=== PATIENT | female | born 1950 | race Caucasian/White ===

== ENCOUNTER 2018-09-29 10:52 | Inpatient (IN) ==
[2018-09-29] MEDS ORDERED: Piperacillin/Tazobactam 3.375 GM in D5% in Water (Mini-Bag+) 100 ML IVPB ONE (11:45)
[2018-09-29] MEDS ORDERED: Azithromycin 500 MG in D5% in Water 250 ML IVPB STA (11:45)
[2018-09-29 11:49] LABS: Bilirubin,Urine Small (Negative); Blood,Urine Negative (Negative); Clarity,Urine Clear (Clear); Color,Urine Yellow (Yellow); Glucose,Urine (UA) Normal (Normal); Ketones,Urine 15 mg/dL (Negative); Leukocyte Esterase,Urine Negative (Negative); Nitrite,Urine Negative (Negative); Protein,Urine 30 mg/dL (Neg-Trace); Specific Gravity,Urine 1.014 (1.010-1.025); Urobilinogen,Urine Normal (Normal)
[2018-09-29 11:50] LABS: Bacteria,Urine None Seen per hpf (None-Few); Hyaline Casts,Urine Moderate per lpf (None-Few); Squamous Epithelial Cell,Urine Many per lpf (None-Few); WBC,Urine 0-3 per hpf (0-3)
[2018-09-29] MEDS ORDERED: Piperacillin/Tazobactam 3.375 GM in Water for inj. (sterile) 20 ML IVP ONE (12:00)
[2018-09-29 12:03] LABS: Transitional Epi Cells,Urine Few per hpf (None-Few)
--- NOTE | 2018-09-29 12:09 | Emergency Department Note ---
Disposition Clinical Impression: Hyponatremia Altered mental status Qualifiers: Altered mental status type: unspecified Qualified Code(s): R41.82 - Altered mental status, unspecified Disposition: Admitted As Inpatient Condition: Fair Time of Disposition: 16:03 General Adult HPI - General Stated complaint: weakness Time Seen by Provider: 09/29/18 10:56 Source: patient, family Limitations: no limitations Nursing Notes Reviewed: Yes Vital Signs Reviewed: Yes - History of Present Illness HPI Narrative: Ms. Marcelino is a 68-year-old female presented to the ED due to her issues with her bili. Her reports that for the past 1 month she has been compla ining of bilateral lower extremity numbness and tingling. He reports that since June she has more difficulty getting up from bed and often uses a bedpan at night time for urination. Ms. Marcelino is awake and alert 3. He does report that for the past 1 month she has been having difficulty walking. She is only complaining of pain around her right abductor muscle. Denies any recent falls or loss of consciousness. When EMS presented her oxygen saturation was 85% on room air. She was started on 2 L of nasal cannula and oxygen saturation is now 97%. She is also complaining of difficulty getting the "full air in." She denies any fever or chills. She is also denying any cough or chest congestion. She reports daily intake of 4 cans of 24 ounce beer for the past 10 years. She reports her last drink was this morning and had one can of beer. She is denying any fever, chills, chest pain, nausea or emesis. Pain Scale: 3 - Related Data Home Medications Medication Instructions Recorded Confirmed Aspirin [Lo-Dose Aspirin EC] 81 mg PO DAILY 06/28/18 09/29/18 Atenolol [Tenormin] 50 mg PO DAILY 06/28/18 09/29/18 Cholecalciferol (Vitamin D3) 2,000 unit PO DAILY 06/28/18 09/29/18 [Vitamin D] Loratadine [Allergy Relief] 10 mg PO DAILY PRN 06/28/18 09/29/18 Losartan Potassium [Cozaar] 50 mg PO DAILY 06/28/18 09/29/18 Mv-Mn/FA/Vit K/Lycop/Lut/Coq10 1 each PO DAILY 06/28/18 09/29/18 [Daily Multivitamin Capsule] Prednisolone Acetate/Pf 1 drop RIGHT EYE TID 09/29/18 09/29/18 [Prednisolone Acet 1% Eye Drop] Sodium Bicarbonate 325 mg PO BID 09/29/18 09/29/18 Allergies Allergy/AdvReac Type Severity Reaction Status Date / Time No Known Allergies Allergy Verified 06/28/18 11:40 Constitutional: Denies: fever, chills, weakness Eyes: Denies: eye pain, eye discharge ENT ED: Denies: ear pain, congestion, dysphagia Cardiovascular: Reports: dyspnea on exertion. Denies: chest pain, palpitations, syncope Respiratory: Reports: dyspnea. Denies: cough, wheezes Gastrointestinal: Denies: abdominal pain, nausea, vomiting Genitourinary: Denies: urgency, dysuria, frequency Musculoskeletal: Reports: back pain (Chronic unchanged) Integumentary: Denies: rash, abrasion Neurological: Reports: other (Bilateral lower leg numbness). Denies: headache, weakness Past Medical History - Past Medical History Medical history: Reports: hypertension, other Psychiatric history: Reports: no psych history - Social History Smoking Status: Former smoker Smokeless Tobacco Status: No Alcohol use: Reports: heavy, recent Drug use: Reports: none Physical Exam - General Limitations: no limitations General appearance: appears intoxicated - Head Head exam: atraumatic, normocephalic - Eye Eye exam: Present: normal appearance, EOMI. Absent: scleral icterus - ENT ENT exam: normal exam, normal oropharynx, mucous membranes moist - Neck Neck exam: Present: normal inspection, full ROM, trachea midline - Chest Chest inspection: Present: normal inspection, symmetric chest wall rise - Respiratory Respiratory exam: Present: other (Decreased breath sounds bilateral lung lobes). Absent: wheezes - Cardiovascular Cardiovascular exam: Present: regular rate, normal rhythm, +S1, +S2 - Abdominal Exam Abdominal exam: Present: soft, Non-Tender. Absent: distention, guarding, rigidity - Extremities Exam Extremities exam: Present: normal inspection, full ROM, tenderness (Right abductor muscle). Absent: pedal edema - Expanded Lower Extremity Exam Hip/Pelvis exam: Present: normal inspection, full ROM. Absent: tenderness - Back Exam Back exam: Present: tenderness (Resting and lumbar spine) - Neurological Exam Neurological exam: Present: alert, oriented X3 (Oriented to person place and time), CN II-XII intact (Hearing intact, vision intact. Strength 5 out of 5 upper and lower extremity. Facial muscle movement intact.). Absent: motor sensory deficit - Psychiatric Psychiatric exam: Present: normal affect, normal mood - Skin Skin exam: Present: warm, dry, intact Course Vital Signs Pulse Rate 63 09/29/18 11:00 Respiratory Rate 16 09/29/18 11:00 Blood Pressure 188/87 09/29/18 11:00 O2 Sat by Pulse Oximetry 100 09/29/18 11:00 Temperature 97.6 F 09/29/18 18:01 Pulse Rate 74 09/29/18 18:01 Respiratory Rate 24 09/29/18 18:01 Blood Pressure 123/72 09/29/18 18:01 O2 Sat by Pulse Oximetry 96 09/29/18 18:01 Oxygen Delivery Oxygen Delivery Nasal Cannula Procedures - Central Line Placement Right IJ Central Line Inserted*: Yes Central Line Catheter Replacement*: No Central Line Insertion: emergent Consent Obtained: written consent Procedural Pause: verify patient name and date of , timeout performed per policy, zane and assess the site, assemble equipment and verify supplies, perform hand hygiene Patient Placed on Monitor/Pulse Ox: Yes During the Procedure: clinician is wearing sterile gloves, cap, mask,& gown during insertion, sterile field and sterile technique are maintained, patient's face is covered with drape or mask and wearing a cap, everyone in room is wearing a mask Central Line Prep: Chlorhexidine scrub Prep the Procedure Site: apply chloraprep to the skin using a back and forth scrubbing motion, apply chloraprep for 30 seconds (upper body), 1-2 min (femoral sites), drape the patient with a full body drape Local Anesthetic: lidocaine 1% Amount of anesthesia used (mL): 4 Ultrasound Used for Placement: Yes Post Procedure: sutured in place, good blood return, all ports aspirated, flushed, capped, sterile dressing applied, guide wire removed and visualized Post Procedure X-Ray: tip of catheter in good position, no pneumothorax seen Complications: none Name of Clinician Inserting Central Line: Lauren Hui Clinician Assisting/Completing Checklist: Tobias Kirby Date: 09/29/18 Time: 15:45 Medical Decision Making - [facility] Narrative Medical decision making narrative: Ms. Marcelino is a 68-year-old female presented to the ED via EMS due to bilateral lower extremity weakness ongoing for the past 1 month. reports she drinks 4 cans a day 4 ounces of beer daily. At presentation the ED she was alert oriented 3. Ported she only had pain in her right adductor muscle. Was not complaining of any recent falls. Her lab returned and sodium was 111 no previous labs to compare to. At 1350 mentation changed and she was only responsive to pain. Dr. Dean over the phone. Who recommended starting 3% normal saline after creating a central line in. She has a central line placed. Normal saline will be started at 20 mls/HR per hour BMP will be rechecked every 2 hours. 1550 Spoke with the admitting hospitalist who will accept this patient. 1600 - Lab Data Lab results reviewed: Yes I reviewed the patient's lab results. Result diagrams: 09/29/18 13:49 09/29/18 21:52 Lab Results 09/29/18 09/29/18 09/29/18 Range/Units 11:40 12:40 12:40 WBC (4.3-11.1) K/mcL RBC (3.82-4.97) M/mcL Hgb (11.5-15.4) g/dL Hct (35.3-44.9) % MCV (83.0-100.0) fL MCH (28.0-33.3) pg MCHC (31.6-35.5) g/dL RDW (11.5-14.5) % Plt Count (140-400) K/mcL MPV (9.4-12.4) fL Immature Gran % (0-4) % Seg Neutrophils % % Lymphocytes % % Monocytes % % Eosinophils % % Basophils % % Neutrophils # (1.6-8.9) K/mcL Lymphocytes # (0.6-4.6) K/mcL Monocytes # (0.0-1.3) K/mcL Eosinophils # (0.0-0.6) K/mcL Basophils # (0.0-0.2) K/mcL Sodium 111 L* (136-145) mEq/L Potassium 4.1 (3.5-5.1) mEq/L Chloride 75 L (98-107) mEq/L Carbon Dioxide 26 (23-29) mEq/L BUN 7 L (8-23) mg/dL Creatinine 0.33 L (0.60-1.20) mg/dL Est GFR ( Amer) > 60 (> 60) Est GFR (Non-Af Amer) > 60 (> 60) BUN/Creatinine Ratio 21 (6-26) Glucose 107 H (70-105) mg/dL Calculated Osmolality 230 L (280-300) Lactic Acid (0.5-2.2) mmol/L Calcium 9.4 (8.6-10.3) mg/dL Total Bilirubin 0.7 (0.3-1.0) mg/dL AST 77 H (13-39) Units/L ALT 19 (7-52) Units/L Alkaline Phosphatase 183 H (34-104) Units/L Troponin I < 0.03 (< 0.04) ng/mL B-Natriuretic Peptide (Less than 100) pg/mL Serum Total Protein 6.6 (6.4-8.9) g/dL Albumin 3.4 L (3.5-5.7) g/dL Globulin 3.2 (2.4-3.5) g/dL Albumin/Globulin Ratio 1.1 (1.1-2.2) Urine Color Yellow (Yellow) Urine Clarity Clear (Clear) Urine pH 6.0 (5.0-8.0) pH Units Ur Specific [place] 1.014 (1.010-1.025) Urine Protein 30 H (Neg-Trace) mg/dL Urine Glucose (UA) Normal (Normal) mg/dL Urine Ketones 15 H (Negative) mg/dL Urine Blood Negative (Negative) Urine Nitrite Negative (Negative) Urine Bilirubin Small H (Negative) Urine Urobilinogen Normal (Normal) mg/dL Ur Leukocyte Esterase Negative (Negative) Urine Microscopic RBC 5-15 H (0-3) per hpf Urine Microscopic WBC 0-3 (0-3) per hpf Ur Squamous Epith Cells Many H (None-Few) per lpf Ur Transition Epith Cell Few (None-Few) per hpf Urine Bacteria None Seen (None-Few) per hpf Hyaline Casts Moderate H (None-Few) per lpf Ur Culture Indicated? NO (NO) Ethyl Alcohol < 10 (Less than 10) mg/dL Specimen Rejected 09/29/18 09/29/18 09/29/18 Range/Units 12:56 12:56 13:03 WBC (4.3-11.1) K/mcL RBC (3.82-4.97) M/mcL Hgb (11.5-15.4) g/dL Hct (35.3-44.9) % MCV (83.0-100.0) fL MCH (28.0-33.3) pg MCHC (31.6-35.5) g/dL RDW (11.5-14.5) % Plt Count (140-400) K/mcL MPV (9.4-12.4) fL Immature Gran % (0-4) % Seg Neutrophils % % Lymphocytes % % Monocytes % % Eosinophils % % Basophils % % Neutrophils # (1.6-8.9) K/mcL Lymphocytes # (0.6-4.6) K/mcL Monocytes # (0.0-1.3) K/mcL Eosinophils # (0.0-0.6) K/mcL Basophils # (0.0-0.2) K/mcL Sodium (136-145) mEq/L Potassium (3.5-5.1) mEq/L Chloride (98-107) mEq/L Carbon Dioxide (23-29) mEq/L BUN (8-23) mg/dL Creatinine (0.60-1.20) mg/dL Est GFR ( Amer) (> 60) Est GFR (Non-Af Amer) (> 60) BUN/Creatinine Ratio (6-26) Glucose (70-105) mg/dL Calculated Osmolality (280-300) Lactic Acid (0.5-2.2) mmol/L Calcium (8.6-10.3) mg/dL Total Bilirubin (0.3-1.0) mg/dL AST (13-39) Units/L ALT (7-52) Units/L Alkaline Phosphatase (34-104) Units/L Troponin I (< 0.04) ng/mL B-Natriuretic Peptide (Less than 100) pg/mL Serum Total Protein (6.4-8.9) g/dL Albumin (3.5-5.7) g/dL Globulin (2.4-3.5) g/dL Albumin/Globulin Ratio (1.1-2.2) Urine Color (Yellow) Urine Clarity (Clear) Urine pH (5.0-8.0) pH Units Ur Specific [place] (1.010-1.025) Urine Protein (Neg-Trace) mg/dL Urine Glucose (UA) (Normal) mg/dL Urine Ketones (Negative) mg/dL Urine Blood (Negative) Urine Nitrite (Negative) Urine Bilirubin (Negative) Urine Urobilinogen (Normal) mg/dL Ur Leukocyte Esterase (Negative) Urine Microscopic RBC (0-3) per hpf Urine Microscopic WBC (0-3) per hpf Ur Squamous Epith Cells (None-Few) per lpf Ur Transition Epith Cell (None-Few) per hpf Urine Bacteria (None-Few) per hpf Hyaline Casts (None-Few) per lpf Ur Culture Indicated? (NO) Ethyl Alcohol (Less than 10) mg/dL Specimen Rejected Clotted Clotted Hemolyzed 09/29/18 09/29/18 09/29/18 Range/Units 13:49 13:49 13:49 WBC 14.9 H (4.3-11.1) K/mcL RBC 3.88 (3.82-4.97) M/mcL Hgb 12.3 (11.5-15.4) g/dL Hct 34.9 L (35.3-44.9) % MCV 89.9 (83.0-100.0) fL MCH 31.7 (28.0-33.3) pg MCHC 35.2 (31.6-35.5) g/dL RDW 12.5 (11.5-14.5) % Plt Count 180 (140-400) K/mcL MPV 9.1 L (9.4-12.4) fL Immature Gran % 0.9 (0-4) % Seg Neutrophils % 85.8 % Lymphocytes % 4.0 % Monocytes % 9.1 % Eosinophils % 0.1 % Basophils % 0.1 % Neutrophils # 12.8 H (1.6-8.9) K/mcL Lymphocytes # 0.6 (0.6-4.6) K/mcL Monocytes # 1.4 H (0.0-1.3) K/mcL Eosinophils # 0.0 (0.0-0.6) K/mcL Basophils # 0.0 (0.0-0.2) K/mcL Sodium (136-145) mEq/L Potassium (3.5-5.1) mEq/L Chloride (98-107) mEq/L Carbon Dioxide (23-29) mEq/L BUN (8-23) mg/dL Creatinine (0.60-1.20) mg/dL Est GFR ( Amer) (> 60) Est GFR (Non-Af Amer) (> 60) BUN/Creatinine Ratio (6-26) Glucose (70-105) mg/dL Calculated Osmolality (280-300) Lactic Acid 1.2 (0.5-2.2) mmol/L Calcium (8.6-10.3) mg/dL Total Bilirubin (0.3-1.0) mg/dL AST (13-39) Units/L ALT (7-52) Units/L Alkaline Phosphatase (34-104) Units/L Troponin I (< 0.04) ng/mL B-Natriuretic Peptide 192 H (Less than 100) pg/mL Serum Total Protein (6.4-8.9) g/dL Albumin (3.5-5.7) g/dL Globulin (2.4-3.5) g/dL Albumin/Globulin Ratio (1.1-2.2) Urine Color (Yellow) Urine Clarity (Clear) Urine pH (5.0-8.0) pH Units Ur Specific [place] (1.010-1.025) Urine Protein (Neg-Trace) mg/dL Urine Glucose (UA) (Normal) mg/dL Urine Ketones (Negative) mg/dL Urine Blood (Negative) Urine Nitrite (Negative) Urine Bilirubin (Negative) Urine Urobilinogen (Normal) mg/dL Ur Leukocyte Esterase (Negative) Urine Microscopic RBC (0-3) per hpf Urine Microscopic WBC (0-3) per hpf Ur Squamous Epith Cells (None-Few) per lpf Ur Transition Epith Cell (None-Few) per hpf Urine Bacteria (None-Few) per hpf Hyaline Casts (None-Few) per lpf Ur Culture Indicated? (NO) Ethyl Alcohol (Less than 10) mg/dL Specimen Rejected - Radiology Data Radiology results reviewed: Yes I reviewed the patient's radiology results. Attestation Statement - Attestation Attestation: I, Tobias Alvarez, examined this patient and my medical decision-making was reviewed with the VOCATIONAL TECHNICAL EDUCATION DIRECTOR/PA/Advanced Practice Nurse/Resident Physician. I agree with the documented findings, disposition and treatment plan as described except to the extent set forth below. 68-year-old female presents emergency Department with concerns of weakness. Patient's is unable to give a history regarding her case and presentation however she is able to answer 1 word answers during her initial evaluation. is present in the room who states that she drinks at least 10 beers a day for the past 10 years. She did been progressively more weak and fatigued over the past week. On physical exam the patient has crackles in bilateral lung bases, pitting edema bilateral lower extremities. She short of breath with laying flat. No jaundice on exam, moving all extremities. O2 evaluation reveals hyponatremia, elevated BNP. Chest x-ray shows possible infiltrate. With her history of EtOH abuse will cover for aspiration pneumonia. On repeat e valuation the patient became confused and with her decreased sodium we treated with 3% sodium solution after discussion with the head of geography. A central line was placed after discussion of the risks and benefits with the significant other who is present in the room. Verbal and written consent were obtained. I was present during the entire procedure as the line was placed by resident. Patient admitted to the ICU for further care and evaluation.
[2018-09-29] MEDS ORDERED: Isovue-370 500 ML BOTTLE IVP ONE ×2 (12:43→13:51)
[2018-09-29 13:29] LABS: Alanine Aminotransferase 19 Units/L (7-52); Albumin 3.4 g/dL (3.5-5.7); Albumin/Globulin Ratio 1.1 (1.1-2.2); Alkaline Phosphatase 183 Units/L (34-104); Aspartate Amino Transferase 77 Units/L (13-39); BUN/Creatinine Ratio 21 (6-26); Bilirubin,Total 0.7 mg/dL (0.3-1.0); Blood Urea Nitrogen 7 mg/dL (8-23); Calcium 9.4 mg/dL (8.6-10.3); Carbon Dioxide 26 mEq/L (23-29); Chloride 75 mEq/L (98-107); Globulin 3.2 g/dL (2.4-3.5); Glucose 107 mg/dL (70-105); Osmolality,Calculated 230 (280-300); Potassium 4.1 mEq/L (3.5-5.1); Sodium 111 mEq/L (136-145); Total Protein 6.6 g/dL (6.4-8.9); Troponin I < 0.03 ng/mL (< 0.04); eGFR For African Americans > 60 (> 60); eGFR For Non-African Americans > 60 (> 60)
[2018-09-29] MEDS ORDERED: 0.9 % Sodium Chloride 1,000 ML IVC ONE (13:33)
[2018-09-29 14:06] LABS: Basophils % 0.1 %; Eosinophils % 0.1 %; Hematocrit 34.9 % (35.3-44.9); Hemoglobin 12.3 g/dL (11.5-15.4); Immature Granulocytes % 0.9 % (0-4); Lymphocytes # 0.6 K/mcL (0.6-4.6); Mean Corpuscular HGB Conc 35.2 g/dL (31.6-35.5); Mean Corpuscular Hemoglobin 31.7 pg (28.0-33.3); Mean Corpuscular Volume 89.9 fL (83.0-100.0); Mean Platelet Volume 9.1 fL (9.4-12.4); Monocytes # 1.4 K/mcL (0.0-1.3); Monocytes % 9.1 %; Neutrophils # 12.8 K/mcL (1.6-8.9); Platelet Count 180 K/mcL (140-400); Red Blood Count 3.88 M/mcL (3.82-4.97); Red Cell Distribution Width 12.5 % (11.5-14.5); Segmented Neutrophils % 85.8 %; White Blood Count 14.9 K/mcL (4.3-11.1)
[2018-09-29] MEDS ORDERED: Naloxone 0.4 MG/ML INJ IVP PRN (16:07)
--- NOTE | 2018-09-29 16:26 | Internal Med History&Physical ---
Date of Encounter: 09/29/18 Time of Encounter: 16:16 Internal Medicine - H&P: HPI Chief complaint: Hyponatremia Admitted From: Emergency Dept History of present illness: Lilian Marcelino is a 68 F w hx obesity, former smoker, HTN, EtOH use disorder, who p/w back pain, SOB, and leg pain. She is withdrawn w eyes closed but able to answer some questions, and present to assist with history. Pt states that for several weeks she's noticed difficulty breathing, and wants to ask about getting some oxygen at home. She's a former smoker, quit 01/2018, who denies known history of lung problems. She also states both pain and numbness in her b/l legs causing her difficulty walking. She finds it difficult to get comfortable due to her back pain. She says she was recently started on salt tabs due to low salt levels, but otherwise just takes blood pressure meds and vitamins/supplements. She denies cough, fever, chills, abd pain, N/V/D, or rash. She no longer smokes, does drink EtOH few beers daily. Recently underwent retinal surgery. In the ED, vitals remarkable for RR 22, SBP 180s. She was initially groggy appearing, but subsequently became near-unresponsive. Labs significant for Na 111, Cl 75, WBC 15, AST 77, AlkP 180, BNP 200. Urine w mild protein and blood. CT chest/abd shows large 3.5 cm RLL lung mass, with skeletal adrenal liver and skull mets. CVC placed and started on 3% saline per Neph consultation. Given doses of zosyn and azithro presumably for meeting sepsis criteria as blood cultures also drawn. Admitted to ICU. Discussed with patient and about lung mass seen on CT, and unclear if patient understood. Toward end of our conversation she was becoming slightly less talkative. She was unable to answer if any allergies or family history. Pt's tearful and understands that patient likely has lung cancer metastatic to several other areas. Past Med Surg Social Fam HX - Past Medical History Medical history: hypertension, other Additional medical history: alcoholism Psychiatric history: no psych history - Social History Smoking Status: Former smoker Smokeless Tobacco Status: No Alcohol use: heavy, recent Drug use: none Internal Medicine - H&P: Meds Aspirin [Lo-Dose Aspirin EC] 81 mg PO DAILY 06/28/18 [History] Atenolol [Tenormin] 50 mg PO DAILY 06/28/18 [History] Cholecalciferol (Vitamin D3) [Vitamin D] 2,000 unit PO DAILY 06/28/18 [History] Loratadine [Allergy Relief] 10 mg PO DAILY PRN 06/28/18 [History] Losartan Potassium [Cozaar] 50 mg PO DAILY 06/28/18 [History] Mv-Mn/FA/Vit K/Lycop/Lut/Coq10 [Daily Multivitamin Capsule] 1 each PO DAILY 06/28/18 [History] Prednisolone Acetate/Pf [Prednisolone Acet 1% Eye Drop] 1 drop RIGHT EYE TID 09/29/18 [History] Sodium Bicarbonate 325 mg PO BID 09/29/18 [History] Allergy/AdvReac Type Severity Reaction Status Date / Time No Known Allergies Allergy Verified 06/28/18 11:40 All Systems PM: A 10-system review of systems was performed and is negative for pertinent findings except as documented above in the HPI. - Constitutional Vitals: Temp Pulse Resp BP Pulse Ox 98.1 F 72 24 146/73 97 09/29/18 11:33 09/29/18 16:03 09/29/18 16:03 09/29/18 16:03 09/29/18 16:03 Exam: General: NAD, poor eye contact, withdrawn/somnolent Head: Atraumatic, normocephalic. Face symmetric Eyes: EOMI, sclerae anicteric ENT: Mucous membranes moist. Normal oral mucosa, poor dentition. Trachea midline. Thoracic: No visible chest wall deformities. Good aeration, does have diminished sounds at bases Cardio: Normal S1 and S2, regular rate and rhythm Abdomen: Soft, nontender, nondistended. Bowel sounds present. Obese. Extremities: Warm, well perfused. DP pulses 2+ b/l. No clubbing, cyanosis. Does have pitting edema b/l LE into thighs Skin: Intact. No rashes, bruises, or ulcers Neuro: Drowsy, fully oriented. Good memory, decent concentration and attention. Speech fluent. CN II-XII grossly intact. Strength 5/5 in b/l UE and LE Internal Med - H&P Results - Labs CBC & Chem 7: 09/30/18 04:07 09/30/18 11:45 Labs: Short CBC 09/29/18 Range/Units 13:49 WBC 14.9 H (4.3-11.1) K/mcL Hgb 12.3 (11.5-15.4) g/dL Hct 34.9 L (35.3-44.9) % Plt Count 180 (140-400) K/mcL Neutrophils # 12.8 H (1.6-8.9) K/mcL BMP 09/29/18 12:40 Sodium 111 L* Potassium 4.1 Chloride 75 L Carbon Dioxide 26 BUN 7 L Creatinine 0.33 L Glucose 107 H Calcium 9.4 Cardiac Enzymes 09/29/18 Range/Units 12:40 Troponin I < 0.03 (< 0.04) ng/mL Liver Function 09/29/18 Range/Units 12:40 Total Bilirubin 0.7 (0.3-1.0) mg/dL AST 77 H (13-39) Units/L ALT 19 (7-52) Units/L Alkaline Phosphatase 183 H (34-104) Units/L Albumin 3.4 L (3.5-5.7) g/dL Urine 09/29/18 Range/Units 11:40 Urine Color Yellow (Yellow) Urine Clarity Clear (Clear) Urine pH 6.0 (5.0-8.0) pH Units Ur Specific [place] 1.014 (1.010-1.025) Urine Protein 30 H (Neg-Trace) mg/dL Urine Glucose (UA) Normal (Normal) mg/dL - Impressions ITS Impressions Chest X-Ray 09/29/18 11:07 IMPRESSION: Opacification right lower hemithorax most likely representing a combination of right pleural fluid with right lower lobe atelectasis or pneumonia D/ / Heber Rodrigez MD / Heber Rodrigez MD Interpreting Provider: Heber Rodrigez MD Chest CTA 09/29/18 12:43 IMPRESSION: 1. No evidence of pulmonary embolism 2. 3.5 cm mass in the right lower lobe surrounded by consolidated lung. This likely represents primary pulmonary malignancy. There is right hilar and mediastinal adenopathy, skeletal metastatic disease including pathologic left rib fractures and pathologic fracture of the right lesser trochanter, and bilateral adrenal masses which are almost certainly metastatic. There are indeterminate liver lesions which are likely metastatic as well. There is a large right pleural effusion, with atelectasis of the right lower and right middle lobes. There is trace left pleural effusion. Tiny nodules scattered throughout both lungs may represent granulomas or metastases. D/ / Carter Pryor MD / Carter Pryor MD Interpreting Provider: Carter Pryor MD Abdomen/Pelvis CT 09/29/18 13:51 IMPRESSION: 1. No evidence of pulmonary embolism 2. 3.5 cm mass in the right lower lobe surrounded by consolidated lung. This likely represents primary pulmonary malignancy. There is right hilar and mediastinal adenopathy, skeletal metastatic disease including pathologic left rib fractures and pathologic fracture of the right lesser trochanter, and bilateral adrenal masses which are almost certainly metastatic. There are indeterminate liver lesions which are likely metastatic as well. There is a large right pleural effusion, with atelectasis of the right lower and right middle lobes. There is trace left pleural effusion. Tiny nodules scattered throughout both lungs may represent granulomas or metastases. D/ / Carter Pryor MD / Carter Pryor MD Interpreting Provider: Carter Pryor MD Head CT 09/29/18 13:52 IMPRESSION: No acute intracranial abnormality. New destructive bony lesions suggesting metastatic disease D/ / Heber Rodrigez MD / Heber Rodrigez MD Interpreting Provider: Heber Rodrigez MD Chest X-Ray 09/29/18 15:42 IMPRESSION: 1. Right jugular central venous line in place terminating in the SVC 2. Findings suggest congestive heart failure with a right-sided pleural effusion D/ / Heber Rodrigez MD / Heber Rodrigez MD Interpreting Provider: Heber Rodrigez MD - Summary of Assessment and Plan Summary of Assessment and Plan: Lilian Marcelino is a 68 F w hx obesity, former smoker, HTN, EtOH use disorder, who p/w back and leg pain and SOB, found to be ill appearing and decreased level of consciousness, labs showing Na 111, CT showing RLL mass w scattered extensive mets, concerning for severe symptomatic hyponatremia in context of likely new lung cancer. Severe hyponatremia: Unclear duration, but does report low Na currently on salt tabs, must treat as if chronic. 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 Does have mild pitting edema to thighs. CVC placed in ED. - Hypertonic saline 3% @20, goal to correct ~6-8 per 24h - q2h checks - seizure precautions - urine sodium & osm - Neph consult Lung mass: w extensive likely metastatic lesions in ribs, R hip, adrenal glands, liver, and skull. - hold on Pulm/Onc consults for now given critical electrolytes at this time, but will consult prior to d/c to assist diagnostic eval - hold on pain meds for now given altered mental status Acute metabolic encephalopathy: 2/2 hyponatremia, treatment as above Leukocytosis: no s/sx infection at this point, is s/p doses of zosyn/azitho in ED and cultures drawn, monitor for fever Hypochloremia: as above Transaminitis: suspect 2/2 alcoholic liver disease EtOH use disorder: CIWA protocol, seizure precautions HTN: home atenolol, holding losartan Obesity: BMI 37 PPx: lovenox FEN: regular when able to PO, MIVF as above Lines: CVC Consults: Neph Code: Full Dispo: inpatient ICU, anticipate 4+ days, dispo unclear
[2018-09-29] MEDS: Thiamine (B-1) 100 MG, Folic Acid 1 MG, MVI, adult with vitamin K 10 ML in 0.9 % Sodi... IVPB SCH (17:35)
[2018-09-29] MEDS: Acetaminophen 325 MG TABLET PO PRN (17:57)
[2018-09-29 18:16] LABS: BUN/Creatinine Ratio 18 (6-26); Blood Urea Nitrogen 6 mg/dL (8-23); Calcium 9.4 mg/dL (8.6-10.3); Carbon Dioxide 30 mEq/L (23-29); Chloride 76 mEq/L (98-107); Glucose 107 mg/dL (70-105); Osmolality,Calculated 230 (280-300); Potassium 4.1 mEq/L (3.5-5.1); Sodium 111 mEq/L (136-145); eGFR For African Americans > 60 (> 60); eGFR For Non-African Americans > 60 (> 60)
[2018-09-29] MEDS: PrednisoLONE Acetate 1% Opth 5 ML BOTTLE RIGHT EYE SCH (20:13)
[2018-09-29 20:51] LABS: Blood Urea Nitrogen 6 mg/dL (8-23); Calcium 9.2 mg/dL (8.6-10.3); Carbon Dioxide 31 mEq/L (23-29); Chloride 77 mEq/L (98-107); Glucose 105 mg/dL (70-105); Osmolality,Calculated 232 (280-300); Sodium 112 mEq/L (136-145)
[2018-09-29 21:44] LABS: BUN/Creatinine Ratio 18 (6-26); eGFR For African Americans > 60 (> 60); eGFR For Non-African Americans > 60 (> 60)
[2018-09-29] MEDS: traMADol 50 MG TABLET PO PRN (21:55)
[2018-09-29 22:25] LABS: BUN/Creatinine Ratio 17 (6-26); Blood Urea Nitrogen 6 mg/dL (8-23); Carbon Dioxide 29 mEq/L (23-29); Chloride 78 mEq/L (98-107); Glucose 103 mg/dL (70-105); Osmolality,Calculated 236 (280-300); Potassium 4.1 mEq/L (3.5-5.1); Sodium 114 mEq/L (136-145); eGFR For African Americans > 60 (> 60); eGFR For Non-African Americans > 60 (> 60)
[2018-09-29] MEDS ORDERED: Dexmedetomidine HCl 400 MCG/100 ML MLS IVC ONE (23:54)
[2018-09-30 04:32] LABS: Hematocrit 33.8 % (35.3-44.9); Hemoglobin 11.6 g/dL (11.5-15.4); Mean Corpuscular HGB Conc 34.3 g/dL (31.6-35.5); Mean Corpuscular Hemoglobin 31.9 pg (28.0-33.3); Mean Corpuscular Volume 92.9 fL (83.0-100.0); Mean Platelet Volume 9.2 fL (9.4-12.4); Platelet Count 198 K/mcL (140-400); Red Blood Count 3.64 M/mcL (3.82-4.97); Red Cell Distribution Width 12.9 % (11.5-14.5); White Blood Count 13.6 K/mcL (4.3-11.1)
[2018-09-30] MEDS: *HR* Enoxaparin 40 MG/0.4 ML SYRINGE SQ SCH (04:48)
[2018-09-30 04:58] LABS: BUN/Creatinine Ratio 17 (6-26); Blood Urea Nitrogen 7 mg/dL (8-23); Calcium 9.2 mg/dL (8.6-10.3); Carbon Dioxide 29 mEq/L (23-29); Chloride 80 mEq/L (98-107); Glucose 102 mg/dL (70-105); Magnesium 1.3 mg/dL (1.6-2.6); Osmolality,Calculated 238 (280-300); Potassium 4.1 mEq/L (3.5-5.1); Sodium 115 mEq/L (136-145); eGFR For African Americans > 60 (> 60); eGFR For Non-African Americans > 60 (> 60)
--- NOTE | 2018-09-30 07:26 | Internal Med Progress Note ---
Hospitalist Progress Note - Encounter Date of Encounter: 09/30/18 Time of Encounter: 07:26 - Subjective Interval History: Pt today is lethargic, will acknowledge to gentle stim and nod head gently to basic questions, but not verbalizing like she would yesterday on my exam. Sodiums overnight steadily increasing. - Exam Vitals: Temp Pulse Resp BP Pulse Ox 97.9 F 72 19 90/48 97 09/30/18 04:03 09/30/18 06:00 09/30/18 06:00 09/30/18 06:00 09/30/18 06:00 Exam: General: NAD, poor eye contact, lethargic Thoracic: Good aeration, diminished at bases Cardio: Normal S1 and S2, regular rate and rhythm Abdomen: Soft, nontender, nondistended. Bowel sounds present. Obese. Extremities: Warm, well perfused. DP pulses 2+ b/l. Stable mild pitting edema b/l LE into thighs Skin: Intact. No rashes, bruises, or ulcers Neuro: lethargic, nods to basic questions, unclear if oriented, does respond to gentle physical stim - Summary of Assessment and Plan Summary of Assessment and Plan: Lilian Marcelino is a 68 F w hx obesity, former smoker, HTN, EtOH use disorder, who p/w back and leg pain and SOB, found to be ill appearing and decreased level of consciousness, labs showing Na 111, CT showing RLL mass w scattered extensive mets, concerning for severe symptomatic hyponatremia in context of likely new lung cancer. Severe hyponatremia: Unclear duration, but reported low Na for which she took salt tabs for preceding 1 month, must treat as if chronic. 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 Does have mild pitting edema to thighs. CVC placed in ED 09/29. - Hypertonic saline 3% increased to @30, maintaining goal to correct ~6-8 per 24h - NS 500cc bolus this AM for hypotension - q2h Na checks - seizure precautions - urine sodium 20 and osm 400, inappropriately elevated - Neph consulted, will f/u rec's Hypotension: MAPs down to ~70 and pt more lethargic this AM - NS 500cc bolus Lung mass: w extensive likely metastatic lesions in ribs, R hip, adrenal glands, liver, and skull. - hold on Pulm/Onc consults for now given critical electrolytes and lethargy at this time, will consult prior to d/c to assist diagnostic eval - hold on pain meds for now given altered mental status Acute metabolic encephalopathy: 2/2 hyponatremia, treatment as above Hypomagnesemia: replace and monitor Leukocytosis: stable, no s/sx infection at this point, is s/p doses of zosyn/azitho in ED and cultures drawn, monitor for fever Hypochloremia: as hyponatremia above Transaminitis: suspect 2/2 alcoholic liver disease EtOH use disorder: CIWA protocol, seizure precautions HTN: home atenolol, holding losartan Obesity: BMI 37 PPx: lovenox FEN: regular when able to PO, MIVF as above Lines: CVC Consults: Neph Code: Full Dispo: inpatient ICU, anticipate 4+ days, dispo unclear Internal Medicine: Result - Labs CBC & Chem 7: 09/30/18 04:07 09/30/18 09:40 Labs: Short CBC 09/29/18 09/30/18 Range/Units 13:49 04:07 WBC 14.9 H 13.6 H (4.3-11.1) K/mcL Hgb 12.3 11.6 (11.5-15.4) g/dL Hct 34.9 L 33.8 L (35.3-44.9) % Plt Count 180 198 (140-400) K/mcL Neutrophils # 12.8 H (1.6-8.9) K/mcL BMP 09/29/18 09/29/18 09/29/18 12:40 17:40 20:11 Sodium 111 L* 111 L* 112 L* Potassium 4.1 4.1 4.0 Chloride 75 L 76 L 77 L Carbon Dioxide 26 30 H 31 H BUN 7 L 6 L 6 L Creatinine 0.33 L 0.33 L 0.34 L Glucose 107 H 107 H 105 Calcium 9.4 9.4 9.2 09/29/18 09/30/18 09/30/18 21:52 00:41 02:01 Sodium 114 L* 116 L* 116 L* Potassium 4.1 Chloride 78 L Carbon Dioxide 29 BUN 6 L Creatinine 0.36 L Glucose 103 Calcium 9.0 09/30/18 09/30/18 04:07 06:16 Sodium 115 L* 110 L* Potassium 4.1 Chloride 80 L Carbon Dioxide 29 BUN 7 L Creatinine 0.42 L Glucose 102 Calcium 9.2 Cardiac Enzymes 09/29/18 Range/Units 12:40 Troponin I < 0.03 (< 0.04) ng/mL Liver Function 09/29/18 Range/Units 12:40 Total Bilirubin 0.7 (0.3-1.0) mg/dL AST 77 H (13-39) Units/L ALT 19 (7-52) Units/L Alkaline Phosphatase 183 H (34-104) Units/L Albumin 3.4 L (3.5-5.7) g/dL Urine 09/29/18 Range/Units 11:40 Urine Color Yellow (Yellow) Urine Clarity Clear (Clear) Urine pH 6.0 (5.0-8.0) pH Units Ur Specific [place] 1.014 (1.010-1.025) Urine Protein 30 H (Neg-Trace) mg/dL Urine Glucose (UA) Normal (Normal) mg/dL - Impressions Impressions Chest X-Ray 09/29/18 11:07 IMPRESSION: Opacification right lower hemithorax most likely representing a combination of right pleural fluid with right lower lobe atelectasis or pneumonia D/ / Heber Rodrigez MD / Heber Rodrigez MD Interpreting Provider: Heber Rodrigez MD Chest CTA 09/29/18 12:43 IMPRESSION: 1. No evidence of pulmonary embolism 2. 3.5 cm mass in the right lower lobe surrounded by consolidated lung. This likely represents primary pulmonary malignancy. There is right hilar and mediastinal adenopathy, skeletal metastatic disease including pathologic left rib fractures and pathologic fracture of the right lesser trochanter, and bilateral adrenal masses which are almost certainly metastatic. There are indeterminate liver lesions which are likely metastatic as well. There is a large right pleural effusion, with atelectasis of the right lower and right middle lobes. There is trace left pleural effusion. Tiny nodules scattered throughout both lungs may represent granulomas or metastases. D/ / Carter Pryor MD / Carter Pryor MD Interpreting Provider: Carter Pryor MD Abdomen/Pelvis CT 09/29/18 13:51 IMPRESSION: 1. No evidence of pulmonary embolism 2. 3.5 cm mass in the right lower lobe surrounded by consolidated lung. This likely represents primary pulmonary malignancy. There is right hilar and mediastinal adenopathy, skeletal metastatic disease including pathologic left rib fractures and pathologic fracture of the right lesser trochanter, and bilateral adrenal masses which are almost certainly metastatic. There are indeterminate liver lesions which are likely metastatic as well. There is a large right pleural effusion, with atelectasis of the right lower and right middle lobes. There is trace left pleural effusion. Tiny nodules scattered throughout both lungs may represent granulomas or metastases. D/ / Carter Pryor MD / Carter Pryor MD Interpreting Provider: Carter Pryor MD Head CT 09/29/18 13:52 IMPRESSION: No acute intracranial abnormality. New destructive bony lesions suggesting metastatic disease D/ / Heber Rodrigez MD / Heber Rodrigez MD Interpreting Provider: Heber Rodrigez MD Chest X-Ray 09/29/18 15:42 IMPRESSION: 1. Right jugular central venous line in place terminating in the SVC 2. Findings suggest congestive heart failure with a right-sided pleural effusion D/ / Heber Rodrigez MD / Heber Rodrigez MD Interpreting Provider: Heber Rodrigez MD Consult Discharge Plan - Plan Referrals: Giovani Wills MD [Primary Care Provider] -
[2018-09-30] MEDS: traMADol 50 MG TABLET PO PRN (07:57)
[2018-09-30] MEDS: PrednisoLONE Acetate 1% Opth 5 ML BOTTLE RIGHT EYE SCH ×3 (07:57→20:06)
[2018-09-30] MEDS ORDERED: 0.9 % Sodium Chloride 500 ML ONE (11:43)
[2018-09-30] MEDS ORDERED: 0.9 % Sodium Chloride 500 ML IVC ONE (11:54)
--- NOTE | 2018-09-30 12:56 | Electrocardiograph Report ---
[place] [id number] Test Date: 2018-09-29 Pat Name: Lilian Marcelino Department: EXAM1 Room: [facility] Gender: F [employer]: : [id number] Requested By: Tobias Alvarez Order Number: [id number] Reading MD: Karthik Fischer Measurements Intervals [place] Rate: 69 P: 39 MI: 180 QRS: -63 QRSD: 146 T: 73 QT: 461 QTc: 494 Interpretive Statements Sinus rhythm RBBB and LAFB Poor R-wave progression Electronically Signed On 09-30-2018 12:54:48 EDT by Karthik Fischer
--- NOTE | 2018-09-30 16:39 | Nephrology Consult Note ---
Date of Encounter: 09/30/18 Time of Encounter: 12:00 Assessment and Plan (1) Hyponatremia Current Visit: Yes Status: Acute Symptomatic hyponatremia acute on chronic likely due to SIADH but also beer potomania with decreased po intake Continue hypertonic saline till sodium at 120 and discontinue Agree with NS bolus for volume resuscitation but afterwards, fluid restriction 1.5 liter a day Will check uric acid, cortisol and TSH levels Urine osm noted elevated, will check serum osm Urine sodium noted low Will add salt in diet when able to eat (2) Altered mental status Current Visit: Yes Status: Acute Likely due to hyponatremia though not completely sure given mets to head Qualifiers: Altered mental status type: unspecified Qualified Code(s): R41.82 - Altered mental status, unspecified (3) Lung mass Current Visit: Yes Status: Acute Oncology eval per primary team (4) ETOH abuse Current Visit: Yes Status: Acute Withdrawal precautions per primary team MVI, thiamine and folate History of Present Illness - Reason for Consult Consult date: 09/30/18 hyponatremia Requesting physician: Von Chavarria - History of Present Illness 68 y o female with PMH of obesity, HTN former smoker and EtOH abuse admitted with back and leg pains along with SOB and was noted with sodium of 111. Per records, was on salt tabs for hyponatremia prior to admission but no labs noted in [place] system to verify. Pt was started on hypertonic saline yesterday in the ED due to altered status.CTA chest noted showing RLL mass with hilar adenopathy. CT head also shows metastatic disease. Pt seen and examined this am very lethargic and hard to wake and stay awake Past Med Surg Social Fam HX - Past Medical History Medical history: hypertension, other Additional medical history: alcoholism Psychiatric history: no psych history - Social History Smoking Status: Former smoker Smokeless Tobacco Status: No Alcohol use: heavy, recent Drug use: none Medications and Allergies Aspirin [Lo-Dose Aspirin EC] 81 mg PO DAILY 06/28/18 [History] Atenolol [Tenormin] 50 mg PO DAILY 06/28/18 [History] Cholecalciferol (Vitamin D3) [Vitamin D] 2,000 unit PO DAILY 06/28/18 [History] Loratadine [Allergy Relief] 10 mg PO DAILY PRN 06/28/18 [History] Losartan Potassium [Cozaar] 50 mg PO DAILY 06/28/18 [History] Mv-Mn/FA/Vit K/Lycop/Lut/Coq10 [Daily Multivitamin Capsule] 1 each PO DAILY 06/28/18 [History] Prednisolone Acetate/Pf [Prednisolone Acet 1% Eye Drop] 1 drop RIGHT EYE TID 09/29/18 [History] Sodium Bicarbonate 325 mg PO BID 09/29/18 [History] Allergy/AdvReac Type Severity Reaction Status Date / Time No Known Allergies Allergy Verified 06/28/18 11:40 Review of Systems ROS unobtainable: due to mental status Exam - Vital Signs Vital signs: Initial Vital Signs Pulse Resp BP Pulse Ox 63 16 188/87 100 09/29/18 11:00 09/29/18 11:00 09/29/18 11:00 09/29/18 11:00 Vital Signs - Last 8 Hours Temp Pulse Resp BP Pulse Ox 09/30/18 15:00 99 20 94/52 95 09/30/18 14:00 96 18 108/57 96 09/30/18 13:00 81 20 101/36 95 09/30/18 12:00 97.6 F 83 22 101/43 97 09/30/18 11:00 84 16 98/65 95 09/30/18 10:00 95 18 98/52 94 09/30/18 09:00 75 19 105/55 95 Intake and Output 09/30/18 09/30/18 09/30/18 07:59 15:59 23:59 Intake Total 301.6 / 708.0 406.4 / 708.0 Output Total 1050 / 1225 175 / 1225 Balance -748.4 / -517.0 231.4 / -517.0 Intake: IV Fluids 301.6 / 708.0 406.4 / 708.0 3% Sodium Chloride 500 ML @ 20 301.6 / 500.0 198.4 / 500.0 mls/hr IVC .Q24H JUANY Rx#: [id number] Magnesium Sulfate 2 GM In 0.9 % 208 / 208 Sodium Chloride 100 ML @ 104 mls/hr IVPB Q1H [facility]UANY Rx#: [id number] Oral 0 / 0 Output: Catheter 1050 / 1225 175 / 1225 Other: Weight 102.3 kg Patient Weight 09/30/18 23:59 Weight 102.3 kg - General Appearance General appearance: obese, fatigue EENT: ATNC, mucous membranes dry Neck: no JVD, supple Respiratory: clear ( ant bilat) Cardiology: edema (LE bilat), normal S1, normal S2 Gastrointestinal: no tenderness, no guarding, obese Integumentary: cool/clammy (LE bilat), chronic venous stasis Neurologic: confused, disoriented Musculoskeletal: no deformities Psychiatric: cooperative Results - Lab Results 09/30/18 04:07 09/30/18 15:43 Most recent lab results 09/30/18 04:07 Calcium 9.2 Magnesium 1.3 L Consult Discharge Plan - Plan Referrals: Giovani Wills MD [Primary Care Provider] -
[2018-09-30] MEDS: Thiamine (B-1) 100 MG, Folic Acid 1 MG, MVI, adult with vitamin K 10 ML in 0.9 % Sodi... IVPB SCH (17:24)
[2018-09-30 18:24] LABS: Uric Acid 3.6 mg/dL (2.3-7.6)
[2018-10-01 03:48] LABS: Basophils % 0.1 %; Hematocrit 36.2 % (35.3-44.9); Hemoglobin 11.6 g/dL (11.5-15.4); Lymphocytes # 0.3 K/mcL (0.6-4.6); Lymphocytes % 1.9 %; Mean Corpuscular Hemoglobin 31.4 pg (28.0-33.3); Mean Corpuscular Volume 98.1 fL (83.0-100.0); Mean Platelet Volume 8.9 fL (9.4-12.4); Monocytes # 1.5 K/mcL (0.0-1.3); Neutrophils # 13.4 K/mcL (1.6-8.9); Platelet Count 201 K/mcL (140-400); Red Blood Count 3.69 M/mcL (3.82-4.97); Red Cell Distribution Width 13.2 % (11.5-14.5); White Blood Count 15.4 K/mcL (4.3-11.1)
[2018-10-01 03:58] LABS: Prothrombin Time 11.4 Seconds (9.4-12.1)
[2018-10-01 04:11] LABS: Thyroid Stimulating Hormone 0.371 mcIU/mL (0.340-5.600)
[2018-10-01 04:11] LABS: Chloride 90 mEq/L (98-107); Potassium 4.7 mEq/L (3.5-5.1); Sodium 124 mEq/L (136-145)
[2018-10-01 04:12] LABS: Alanine Aminotransferase 19 Units/L (7-52); Albumin 3.1 g/dL (3.5-5.7); BUN/Creatinine Ratio 18 (6-26); Bilirubin,Direct 0.1 mg/dL (0.0-0.2); Bilirubin,Indirect 0.2 mg/dL (0.0-1.2); Bilirubin,Total 0.3 mg/dL (0.3-1.0); Blood Urea Nitrogen 11 mg/dL (8-23); Calcium 9.2 mg/dL (8.6-10.3); Carbon Dioxide 30 mEq/L (23-29); Glucose 119 mg/dL (70-105); Magnesium 2.1 mg/dL (1.6-2.6); Osmolality,Calculated 259 (280-300); Phosphorous 4.6 mg/dL (2.7-4.5); Total Protein 6.1 g/dL (6.4-8.9); eGFR For African Americans > 60 (> 60); eGFR For Non-African Americans > 60 (> 60)
[2018-10-01 04:13] LABS: Alkaline Phosphatase 258 Units/L (34-104); Aspartate Amino Transferase 55 Units/L (13-39)
[2018-10-01] MEDS: *HR* Enoxaparin 40 MG/0.4 ML SYRINGE SQ SCH (05:02)
[2018-10-01] MEDS ORDERED: 0.9 % Sodium Chloride 500 ML IVC PRN (05:29)
--- NOTE | 2018-10-01 08:23 | Internal Med Progress Note ---
Hospitalist Progress Note - Encounter Date of Encounter: 10/01/18 Time of Encounter: 08:23 - Subjective Interval History: Pt still very somnolent, but does exhibit more spontaneous movement today, responds to voice by moving head in direction of sound and opening eyes, but does not appear to be focusing and cannot verbalize. Overnight, her pressures were soft and she was given NS 500cc bolus. Pt's and daughter visited yesterday afternoon and extensive discussion re results and current medical status discussed. This AM, notified by RN that patient's SBP was in low 80s, which on repeat was 70s. - Exam Vitals: Temp Pulse Resp BP Pulse Ox 96.2 F L 84 27 90/60 98 10/01/18 03:00 10/01/18 07:00 10/01/18 07:00 10/01/18 07:00 10/01/18 07:00 Exam: General: see HPI above for description of general status Thoracic: Today has diffuse inspiratory crackles and faint expiratory wheezes Cardio: Normal S1 and S2, regular rate and rhythm Abdomen: Soft, nontender, nondistended Extremities: Warm, well perfused. Radial pulses palpable. Does have pitting edema b/l LE into thighs Neuro: Lethargic. Looks to side of voice. - Summary of Assessment and Plan Summary of Assessment and Plan: Lilian Marcelino is a 68 F w hx obesity, former smoker, HTN, EtOH use disorder, who p/w back and leg pain and SOB, found to be ill appearing and decreased level of consciousness, labs showing Na 111, CT showing RLL mass w scattered extensive mets, concerning for severe symptomatic hyponatremia in context of likely new primary lung cancer. Shock: SBP 70s despite saline infusion and two 500cc boluses. Lungs sound wet, pressures too low to tolerate diuresis. Mental status precludes positive pressure. Concern given adrenal mets for adrenal crisis. With leukocytosis and lung mass surrounded by consolidation could be infection / post-obstructive PNA. Former smoker who was hypertensive on admit could also have acute myocardial pathology. - TTE - random cortisol, trop, lactate, ABG - BCx x2 and UCx - empiric hydrocortisone 50 iv now - empiric zosyn - Critical Care consultation, care transferred to ICU team Severe hyponatremia: Na 111 on admit, goal to correct ~6-8 per 24h, CVC placed 09/29 - today will hold Hypertonic saline 3% due to pulmonary edema, - q2h checks - seizure precautions - Neph consult, appreciate rec's Lung mass: w extensive likely metastatic lesions in ribs, R hip, adrenal glands, liver, and skull. - hold on Pulm/Onc consults for now given critical status at this time, but will consult prior to d/c to assist diagnostic eval - hold on pain meds for now given altered mental status Acute metabolic encephalopathy: 2/2 hyponatremia, head CT unremarkable for intracranial pathology, treatment as above Hypochloremia: as above Transaminitis: suspect 2/2 alcoholic liver disease Skin breakdown: b/l elbows, coccyx, and groin/perineum, see software quality assurance analyst for staging, woundRN consulted EtOH use disorder: CIWA protocol, seizure precautions HTN: home atenolol, holding losartan Obesity: BMI 37 PPx: lovenox FEN: NPO, MIVF as above Lines: CVC, [place] Consults: Neph Code: Full Dispo: inpatient ICU, anticipate 4+ days, dispo unclear, prognosis guarded Internal Medicine: Result - Labs CBC & Chem 7: 10/01/18 03:00 10/01/18 08:00 Labs: Short CBC 10/01/18 Range/Units 03:00 WBC 15.4 H (4.3-11.1) K/mcL Hgb 11.6 (11.5-15.4) g/dL Hct 36.2 (35.3-44.9) % Plt Count 201 (140-400) K/mcL Neutrophils # 13.4 H (1.6-8.9) K/mcL BMP 09/30/18 09/30/18 09/30/18 09:40 11:45 13:50 Sodium 118 L* 118 L* 120 L* Potassium Chloride Carbon Dioxide BUN Creatinine Glucose Calcium 09/30/18 09/30/18 09/30/18 15:43 17:40 19:45 Sodium 119 L* 122 L 121 L Potassium Chloride Carbon Dioxide BUN Creatinine Glucose Calcium 09/30/18 09/30/18 10/01/18 21:10 23:15 01:10 Sodium 123 L 123 L 123 L Potassium Chloride Carbon Dioxide BUN Creatinine Glucose Calcium 10/01/18 10/01/18 03:35 05:20 Sodium 124 L 121 L Potassium 4.7 Chloride 90 L Carbon Dioxide 30 H BUN 11 Creatinine 0.61 Glucose 119 H Calcium 9.2 Liver Function 10/01/18 Range/Units 03:35 Total Bilirubin 0.3 (0.3-1.0) mg/dL Direct Bilirubin 0.1 (0.0-0.2) mg/dL AST 55 H (13-39) Units/L ALT 19 (7-52) Units/L Alkaline Phosphatase 258 H (34-104) Units/L Albumin 3.1 L (3.5-5.7) g/dL - ABG Interpretation ABG results: PT/INR, D-dimer PT 11.4 Seconds (9.4-12.1) 10/01/18 03:35 Consult Discharge Plan - Plan Referrals: Giovani Wills MD [Primary Care Provider] -
[2018-10-01] MEDS: PrednisoLONE Acetate 1% Opth 5 ML BOTTLE RIGHT EYE SCH ×3 (08:30→20:03)
[2018-10-01 08:47] LABS: Sodium 125 mEq/L (136-145)
[2018-10-01] MEDS ORDERED: Piperacillin/Tazobactam 3.375 GM in 0.9 % Sodium Chloride Mini Bag 100 ML IVPB ONE (09:02)
[2018-10-01] MEDS ORDERED: Hydrocortisone Sodium Succ 100 MG/2 ML VIAL IVP ONE (09:17)
[2018-10-01] MEDS: Norepinephrine 4 MG in D5% in Water 250 ML IVC SCH (09:24)
[2018-10-01 09:49] LABS: Troponin I 0.07 ng/mL (< 0.04)
[2018-10-01 09:53] LABS: VBG Ionized Calcium 0.94 mmol/L (1.15-1.35)
[2018-10-01] MEDS ORDERED: *HR* Midazolam HCl 2 MG/2 ML VIAL IV ONE (10:09)
[2018-10-01] MEDS ORDERED: *HR* Midazolam HCl 5 MG/5 ML VIAL IVP ONE (10:09)
[2018-10-01] MEDS ORDERED: *HR* Etomidate 20 MG/10 ML AMPUL IVP ONE (10:09)
[2018-10-01 10:13] LABS: BUN/Creatinine Ratio 16 (6-26); Blood Urea Nitrogen 12 mg/dL (8-23); Carbon Dioxide 26 mEq/L (23-29); Chloride 91 mEq/L (98-107); Glucose 120 mg/dL (70-105); Magnesium 2.1 mg/dL (1.6-2.6); Osmolality,Calculated 261 (280-300); Potassium 4.8 mEq/L (3.5-5.1); eGFR For African Americans > 60 (> 60); eGFR For Non-African Americans > 60 (> 60)
[2018-10-01 10:37] LABS: ABG Base Excess -5 mEq/L (-2 to 3); ABG HCO3 28 mEq/L (21-27); ABG Oxygen Saturation 85 % (95-98); ABG PCO2 106 mmHg (35-45); ABG PH 7.04 pH Units (7.32-7.45); ABG PO2 75 mmHg (85-104); ABG TCO2 32 mEq/L (20-26)
[2018-10-01 11:58] LABS: ABG Base Excess -8 mEq/L (-2 to 3); ABG HCO3 26 mEq/L (21-27); ABG Oxygen Saturation 83 % (95-98); ABG PCO2 98 mmHg (35-45); ABG PH 7.03 pH Units (7.32-7.45); ABG PO2 72 mmHg (85-104); ABG TCO2 29 mEq/L (20-26)
[2018-10-01] MEDS ORDERED: Dexmedetomidine HCl 400 MCG/100 ML MLS IVC SCH (12:15)
[2018-10-01] MEDS: FentaNYL (PF) 1,000 MCG in 0.9 % Sodium Chloride 80 ML IVC SCH ×2 (12:42→20:01)
[2018-10-01] MEDS ORDERED: Artificial Tears SOLN 15 ML BOTTLE BOTH EYES PRN (13:44)
[2018-10-01] MEDS: Piperacillin/Tazobactam 3.375 GM in 0.9 % Sodium Chloride Mini Bag 100 ML IVPB SCH ×2 (14:59→22:54)
--- NOTE | 2018-10-01 15:33 | Pulmonology Consult Note ---
<Jimmy Freitas - Last Filed: 10/01/18 15:39> Date of Encounter: 10/01/18 Time of Encounter: 11:30 Assessment and Plan (1) Shock Current Visit: Yes Status: Acute - Patient developed hypotension today with SBP in the 60s-80s - Etiology is unknown; likely secondary to septic shock - She was given saline infusion in 2 boluses of 500 mL; blood pressure did not respond - Levophed was started - Blood pressure after starting levophed has been 100s-130s - Currently on mechanical ventilation, sedation with fentanyl and Versed Plan: - Continue pressor support with Levophed with a goal MAP>65 - Continue to closely monitor vital signs - Vancomycin and Zosyn for likely pneumonia, day 1 (2) Sepsis Current Visit: Yes Status: Acute Patient meets 3/4 SIRS criteria: Leukocytosis, temp<96.8, tachypnea - Etiology is unknown; most likely source is pneumonia - Patient has leukocytosis at 15.4 with left shift - Lactate drawn today was 1.6 - CXR 09/29: Opacification right lower hemithorax; right pleural effusion with RLL atelectasis vs pneumonia - CT chest 09/29: RLL mass, right hilar and mediastinal lymphadenopathy, large right pleural effusion, atelectasis of right lower and right middle lobes - On physical exam, patient has coarse, diminished breath sounds bilaterally - Blood, urine, and sputum cultures have all been ordered and are currently pending Plan: - IV vancomycin and Zosyn, day 1 - We will adjust antibiotic therapy according to culture results - Pro calcitonin pending Qualifiers: Qualified Code(s): A41.9 - Sepsis, unspecified organism (3) Acute respiratory failure Current Visit: Yes Status: Acute - Patient developed hypotension on 10/01, likely due to septic shock - Was started on levophed and subsequently intubated and placed on mechanical ventilation - ABG 10/01: 7.03/98/72/// - Vent bundle in place - Fentanyl and Versed for sedation - Protonix IV twice a day Qualifiers: Qualified Code(s): J96.00 - Acute respiratory failure, unspecified whether with hypoxia or hypercapnia (4) Pneumonia Current Visit: Yes Status: Acute - As demonstrated on imaging documented above - Started Vancomycin and Zosyn (Day 1) Qualifiers: Qualified Code(s): J18.9 - Pneumonia, unspecified organism (5) Hyponatremia Current Visit: Yes Status: Acute - She presented with a low sodium level at 111 - Patient was started on hypertonic saline 3%, which is now being held due to possible pulmonary edema - Last sodium level was 126 - Seizure precautions in place - Nephrology is following - Sodium checks every 2 hours (6) Elevated troponin Current Visit: Yes Status: Acute - Initial troponin on arrival was less than 0.03 - Troponin this morning is 0.07 - Possibly secondary to demand ischemia - TTE ordered this morning demonstrated EF 60-65%, mild LV diastolic dysfunction, atypical septal motion consistent with bundle branch block, small pericardial effusion adjacent to inferior and lateral segments of LV, no echocardiographic evidence of tamponade, dilated IVC - Will trend troponin Q6H (7) Lung mass Current Visit: Yes Status: Acute A lung mass was incidentally found on Chest CTA on presentation Per report: - 3.5 cm mass in RLL surrounded by consolidated lung, likely representing malignancy - R hilar and mediastinal adenopathy, skeletal metastatic disease including pathologic L rib fractures and pathologic fracture of R lesser trochanter, and b/l adrenal masses which are almost certainly metastatic - Indeterminate liver lesions, likely metastatic - Large R pleural effusion, with atelectasis of RLL and RML - Trace L pleural effusion - Tiny nodules scattered throughout both lungs may represent granulomas or me tastases (8) Acute metabolic encephalopathy Current Visit: Yes Status: Acute - Etiology unknown; likely secondary to sepsis, hyponatremia (9) ETOH abuse Current Visit: Yes Status: Acute - Patient has a known history of alcohol use disorder - CIWA protocol and seizure precautions are in place History of Present Illness Consult date: 10/01/18 Chief complaint: hypotension History of present illness: Ms. Marcelino is a 68-year-old female with a PMH of hypertension, alcohol abuse disorder, and former tobacco use disorder who presented to the emergency department on 09/29/18 chief complaint of shortness breath, back pain, and leg pain. Her shortness of breath had been going on for several weeks. She had recently been started on salt tablets due to low sodium levels. On presentation, she was hypertensive with systolic blood pressure in the 180s and was tachypneic with respiratory rate of 22. Labs demonstrated a low sodium level of 111, leukocytosis at 15, and elevated transaminases. A CTA was performed to rule out PE. It demonstrated the presence of a large 3.5 cm right lower lobe lung mass, most likely representing malignancy, as well as skeletal, skull, adrenal, and liver metastases. A central line was placed, nephrology was consulted, and patient was started on 3% hypertonic saline. She was then transferred to the ICU for further monitoring. Her sodium level subsequently improved. Last sodium level was 126. On the morning of 10/01, patient developed hypotension with systolic blood pressure in the 60s to 80s. As a result, the pulmonary/critical care team was consulted. She was given 2 boluses of normal saline 500 mL with no response. On exam, her breath sounds were diminished with bilateral rhonchi. Levophed was started for pressor support. Patient was intubated and placed on mechanical ventilation with fentanyl and Versed for sedation. Vancomycin and Zosyn have both been started for likely pneumonia. Blood, sputum, and urine cultures are all ordered and currently pending. Past Med Surg Social Fam HX - Past Medical History Medical history: hypertension, other Additional medical history: alcoholism Psychiatric history: no psych history - Social History Smoking Status: Former smoker Smokeless Tobacco Status: No Alcohol use: heavy, recent Drug use: none Medications and Allergies Aspirin [Lo-Dose Aspirin EC] 81 mg PO DAILY 06/28/18 [History] Atenolol [Tenormin] 50 mg PO DAILY 06/28/18 [History] Cholecalciferol (Vitamin D3) [Vitamin D] 2,000 unit PO DAILY 06/28/18 [History] Loratadine [Allergy Relief] 10 mg PO DAILY PRN 06/28/18 [History] Losartan Potassium [Cozaar] 50 mg PO DAILY 06/28/18 [History] Mv-Mn/FA/Vit K/Lycop/Lut/Coq10 [Daily Multivitamin Capsule] 1 each PO DAILY 06/28/18 [History] Prednisolone Acetate/Pf [Prednisolone Acet 1% Eye Drop] 1 drop RIGHT EYE TID 09/29/18 [History] Sodium Bicarbonate 325 mg PO BID 09/29/18 [History] Allergy/AdvReac Type Severity Reaction Status Date / Time No Known Allergies Allergy Verified 06/28/18 11:40 ROS unobtainable: due to endotracheal tube, due to mental status All Systems: The remainder of the systems were reviewed and are negative Physical Examination Vital Signs: Vital Signs, Last 4 Hours Temp Pulse Resp BP Pulse Ox 10/01/18 15:00 72 18 77/55 100 10/01/18 14:00 72 18 75/58 100 10/01/18 13:35 18 75/58 100 10/01/18 13:00 67 18 118/55 100 10/01/18 12:32 97.4 F L 87 12 104/55 98 10/01/18 12:00 87 12 104/55 98 General: Intubated, sedated; no acute distress noted Head: atraumatic, normocephalic; ET tube in place Eye: No scleral icterus Neck: Supple, trachea midline; No lymphadenopathy Respiratory: Diminished breath sounds bilaterally, bilateral rhonchi, crackles, and both inspiratory and expiratory wheezing Cardiovascular: RRR, +S1, +S2; no murmurs, rubs, gallops Abdomen: Soft, nondistended Extremities: No clubbing, edema, or cyanosis; soft restraints in place on the upper extremities Neurological: Sedated; no response to stimuli Psychiatric: Unable to assess Skin: Dry, intact; pale-appearing Ventilator Settings Ventilator Settings: Ventilator Settings, Last 8 Hours Ventilator Tidal Volume 450 Setting Ventilator Tidal Volume 450 Setting Ventilator Tidal Volume 450 Setting Ventilator Tidal Volume 450 Setting Ventilator Respiratory Rate 18 Setting Ventilator Respiratory Rate 18 Setting Ventilator Respiratory Rate 18 Setting Ventilator Respiratory Rate 18 Setting Actual Respiratory Rate 18 Actual Respiratory Rate 18 Actual Respiratory Rate 18 Actual Respiratory Rate 18 Positive End Expiratory 5 Pressure Positive End Expiratory 5 Pressure Positive End Expiratory 5 Pressure Positive End Expiratory 5 Pressure Peak Inspiratory Airway 35 Pressure Peak Inspiratory Airway 37 Pressure Peak Inspiratory Airway 30 Pressure Peak Inspiratory Airway 43 Pressure Results - Laboratory Findings CBC and BMP: 10/01/18 03:00 10/01/18 11:06 ABG ABG pH 7.03 pH Units (7.32-7.45) L* 10/01/18 11:55 ABG pCO2 98 mmHg (35-45) H* 10/01/18 11:55 ABG pO2 72 mmHg (85-104) L 10/01/18 11:55 ABG O2 Saturation 83 % (95-98) L 10/01/18 11:55 PT/INR, D-dimer PT 11.4 Seconds (9.4-12.1) 10/01/18 03:35 Abnormal lab findings: Abnormal lab results WBC 15.4 K/mcL (4.3-11.1) H 10/01/18 03:00 RBC 3.69 M/mcL (3.82-4.97) L 10/01/18 03:00 Hct 33.8 % (35.3-44.9) L 09/30/18 04:07 MPV 8.9 fL (9.4-12.4) L 10/01/18 03:00 13.4 K/mcL (1.6-8.9) H 10/01/18 03:00 0.3 K/mcL (0.6-4.6) L 10/01/18 03:00 1.5 K/mcL (0.0-1.3) H 10/01/18 03:00 ABG pH 7.03 pH Units (7.32-7.45) L* 10/01/18 11:55 ABG pCO2 98 mmHg (35-45) H* 10/01/18 11:55 ABG pO2 72 mmHg (85-104) L 10/01/18 11:55 ABG HCO3 28 mEq/L (21-27) H 10/01/18 10:32 ABG Total CO2 29 mEq/L (20-26) H 10/01/18 11:55 ABG O2 Saturation 83 % (95-98) L 10/01/18 11:55 ABG Base Excess -8 mEq/L (-2 to 3) L 10/01/18 11:55 Sodium 126 mEq/L (136-145) L 10/01/18 11:06 Chloride 91 mEq/L (98-107) L 10/01/18 08:00 Carbon Dioxide 30 mEq/L (23-29) H 10/01/18 03:35 BUN 7 mg/dL (8-23) L 09/30/18 04:07 0.42 mg/dL (0.60-1.20) L 09/30/18 04:07 Glucose 120 mg/dL (70-105) H 10/01/18 08:00 POC Glucose 108 mg/dL (70-99) H 09/29/18 17:38 259 mOsm/kg (280-300) L 09/30/18 18:02 261 (280-300) L 10/01/18 08:00 Venous Ioniz Calcium 0.94 mmol/L (1.15-1.35) L 10/01/18 09:50 Phosphorus 4.6 mg/dL (2.7-4.5) H 10/01/18 03:35 Magnesium 1.3 mg/dL (1.6-2.6) L 09/30/18 04:07 AST 55 Units/L (13-39) H 10/01/18 03:35 258 Units/L (34-104) H 10/01/18 03:35 0.07 ng/mL (< 0.04) H* 10/01/18 08:00 B-Natriuretic Peptide 192 pg/mL (Less than 100) H 09/29/18 13:49 6.1 g/dL (6.4-8.9) L 10/01/18 03:35 3.1 g/dL (3.5-5.7) L 10/01/18 03:35 1.0 (1.1-2.2) L 10/01/18 03:35 30 mg/dL (Neg-Trace) H 09/29/18 11:40 15 mg/dL (Negative) H 09/29/18 11:40 Small (Negative) H 09/29/18 11:40 5-15 per hpf (0-3) H 09/29/18 11:40 Ur Squamous Epith Cells Many per lpf (None-Few) H 09/29/18 11:40 Hyaline Casts Moderate per lpf (None-Few) H 09/29/18 11:40 - Microbiology Findings Microbiology Findings: Microbiology, Last 48 Hours 10/01/18 09:15 Urine Culture - Preliminary Urine,[place] Culture is incubating. 10/01/18 09:35 Blood Culture - Preliminary Peripheral Venipuncture Culture is incubating and being continuously monitored for growth. Final report to follow. 10/01/18 09:27 Blood Culture - Preliminary Peripheral Venipuncture Culture is incubating and being continuously monitored for growth. Final report to follow. 09/29/18 12:40 Blood Culture - Preliminary Peripheral Venipuncture Culture is incubating and being continuously monitored for growth. Final report to follow. 09/29/18 12:35 Blood Culture - Preliminary Peripheral Venipuncture Culture is incubating and being continuously monitored for growth. Final report to follow. - Clinical Findings Intake & Output: Intake & Output 06/10/01/18 10/01/18 23:59 07:59 15:59 Intake Total 1011.2 / 1719.2 910 / 1428 518 / 1428 Output Total 600 / 1825 200 / 490 290 / 490 Balance 411.2 / -105.8 710 / 938 228 / 938 Weight 103 kg Consult Discharge Plan - Plan Referrals: Giovani Wills MD [Primary Care Provider] - <Oniel Mishra - Last Filed: 10/01/18 22:39> Date of Encounter: 10/01/18 All Systems: The remainder of the systems were reviewed and are negative Physical Examination Vital Signs: Vital Signs, Last 4 Hours Temp Pulse Resp BP Pulse Ox 10/01/18 22:00 74 18 103/51 98 10/01/18 21:33 18 104/54 98 10/01/18 21:00 76 18 107/49 98 10/01/18 20:10 77 10/01/18 20:07 100.0 F H 10/01/18 20:00 75 18 107/53 100 10/01/18 19:51 18 102/50 100 10/01/18 19:00 76 18 91/53 98 Ventilator Settings Ventilator Settings: Ventilator Settings, Last 8 Hours Ventilator Tidal Volume 450 Setting Ventilator Tidal Volume 450 Setting Ventilator Tidal Volume 450 Setting Ventilator Tidal Volume 450 Setting Ventilator Tidal Volume 450 Setting Ventilator Tidal Volume 450 Setting Ventilator Tidal Volume 450 Setting Ventilator Tidal Volume 450 Setting Ventilator Tidal Volume 450 Setting Ventilator Tidal Volume 450 Setting Ventilator Tidal Volume 450 Setting Ventilator Tidal Volume 450 Setting Ventilator Tidal Volume 450 Setting Ventilator Respiratory Rate 18 Setting Ventilator Respiratory Rate 18 Setting Ventilator Respiratory Rate 18 Setting Ventilator Respiratory Rate 18 Setting Ventilator Respiratory Rate 18 Setting Ventilator Respiratory Rate 18 Setting Ventilator Respiratory Rate 18 Setting Ventilator Respiratory Rate 18 Setting Ventilator Respiratory Rate 18 Setting Ventilator Respiratory Rate 18 Setting Ventilator Respiratory Rate 18 Setting Ventilator Respiratory Rate 18 Setting Ventilator Respiratory Rate 18 Setting Actual Respiratory Rate 18 Actual Respiratory Rate 18 Actual Respiratory Rate 18 Actual Respiratory Rate 18 Actual Respiratory Rate 18 Actual Respiratory Rate 18 Actual Respiratory Rate 18 Actual Respiratory Rate 18 Positive End Expiratory 5 Pressure Positive End Expiratory 5 Pressure Positive End Expiratory 5 Pressure Positive End Expiratory 5 Pressure Positive End Expiratory 5 Pressure Positive End Expiratory 5 Pressure Positive End Expiratory 5 Pressure Positive End Expiratory 5 Pressure Positive End Expiratory 5 Pressure Positive End Expiratory 5 Pressure Positive End Expiratory 5 Pressure Positive End Expiratory 5 Pressure Positive End Expiratory 5 Pressure Peak Inspiratory Airway 29 Pressure Peak Inspiratory Airway 33 Pressure Peak Inspiratory Airway 41 Pressure Peak Inspiratory Airway 31 Pressure Peak Inspiratory Airway 32 Pressure Peak Inspiratory Airway 33 Pressure Peak Inspiratory Airway 33 Pressure Peak Inspiratory Airway 35 Pressure Results - Laboratory Findings CBC and BMP: 10/01/18 03:00 10/01/18 20:50 ABG ABG pH 7.40 pH Units (7.32-7.45) D 10/01/18 16:19 ABG pCO2 40 mmHg (35-45) D 10/01/18 16:19 ABG pO2 340 mmHg (85-104) H D 10/01/18 16:19 ABG O2 Saturation 100 % (95-98) H 10/01/18 16:19 PT/INR, D-dimer PT 11.4 Seconds (9.4-12.1) 10/01/18 03:35 Abnormal lab findings: Abnormal lab results WBC 15.4 K/mcL (4.3-11.1) H 10/01/18 03:00 RBC 3.69 M/mcL (3.82-4.97) L 10/01/18 03:00 Hct 33.8 % (35.3-44.9) L 09/30/18 04:07 MPV 8.9 fL (9.4-12.4) L 10/01/18 03:00 13.4 K/mcL (1.6-8.9) H 10/01/18 03:00 0.3 K/mcL (0.6-4.6) L 10/01/18 03:00 1.5 K/mcL (0.0-1.3) H 10/01/18 03:00 ABG pH 7.03 pH Units (7.32-7.45) L* 10/01/18 11:55 ABG pCO2 98 mmHg (35-45) H* 10/01/18 11:55 ABG pO2 340 mmHg (85-104) H D 10/01/18 16:19 ABG HCO3 28 mEq/L (21-27) H 10/01/18 10:32 ABG Total CO2 29 mEq/L (20-26) H 10/01/18 11:55 ABG O2 Saturation 100 % (95-98) H 10/01/18 16:19 ABG Base Excess -8 mEq/L (-2 to 3) L 10/01/18 11:55 Sodium 127 mEq/L (136-145) L 10/01/18 20:50 Chloride 91 mEq/L (98-107) L 10/01/18 08:00 Carbon Dioxide 30 mEq/L (23-29) H 10/01/18 03:35 BUN 7 mg/dL (8-23) L 09/30/18 04:07 0.42 mg/dL (0.60-1.20) L 09/30/18 04:07 Glucose 120 mg/dL (70-105) H 10/01/18 08:00 POC Glucose 108 mg/dL (70-99) H 09/29/18 17:38 259 mOsm/kg (280-300) L 09/30/18 18:02 261 (280-300) L 10/01/18 08:00 Venous Ioniz Calcium 0.94 mmol/L (1.15-1.35) L 10/01/18 09:50 Phosphorus 4.6 mg/dL (2.7-4.5) H 10/01/18 03:35 Magnesium 1.3 mg/dL (1.6-2.6) L 09/30/18 04:07 AST 55 Units/L (13-39) H 10/01/18 03:35 258 Units/L (34-104) H 10/01/18 03:35 0.08 ng/mL (< 0.04) H* 10/01/18 20:50 B-Natriuretic Peptide 192 pg/mL (Less than 100) H 09/29/18 13:49 6.1 g/dL (6.4-8.9) L 10/01/18 03:35 3.1 g/dL (3.5-5.7) L 10/01/18 03:35 1.0 (1.1-2.2) L 10/01/18 03:35 30 mg/dL (Neg-Trace) H 09/29/18 11:40 15 mg/dL (Negative) H 09/29/18 11:40 Small (Negative) H 09/29/18 11:40 5-15 per hpf (0-3) H 09/29/18 11:40 Ur Squamous Epith Cells Many per lpf (None-Few) H 09/29/18 11:40 Hyaline Casts Moderate per lpf (None-Few) H 09/29/18 11:40 - Microbiology Findings Microbiology Findings: Microbiology, Last 48 Hours 10/01/18 13:47 Sputum Culture - Preliminary Sputum 10/01/18 09:15 Urine Culture - Preliminary Urine,[place] Culture is incubating. 10/01/18 09:35 Blood Culture - Preliminary Peripheral Venipuncture Culture is incubating and being continuously monitored for growth. Final report to follow. 10/01/18 09:27 Blood Culture - Preliminary Peripheral Venipuncture Culture is incubating and being continuously monitored for growth. Final report to follow. - Clinical Findings Intake & Output: Intake & Output 10/01/18 10/01/18 10/01/18 07:59 15:59 23:59 Intake Total 910 / 1627 523 / 1627 194 / 1627 Output Total 200 / 565 290 / 565 75 / 565 Balance 710 / 1062 233 / 1062 119 / 1062 - Attending Attestation I saw and evaluated this patient and my medical decision-making was reviewed w ith the Resident Physician. I agree with the documented findings, disposition and treatment plan as described except to the extent set forth below. We independently had [id number] contact with the patient I spent 80 minutes of Critical Care time with this patient. It involved decision making of high complexity to assess, manipulate, and support vital organ system failure and/or to prevent further life threatening deterioration of the patient's condition. The time involved in the performance of separately reportable procedures was not counted toward critical care time. Patient seen and examined at bedside Labs, radiology, chart personally reviewed. Management was reviewed during multidisciplinary critical care rounds. [employer]ER: Patient on initial exam was completely comatose most likely due to toxic/metabolic encephalopathy patient had severe respiratory acidosis did not respond to BiPAP Pulm: Patient has possible right lower lobe lung malignancy with the medicine lymphadenopathy. Right lower lobe pneumonia we will do bronchoscopy tomorrow for airway exam and bronchoalveolar lavage. Patient has acceptable oxygenation and ventilation low tidal volume strategy with adequate respiratory rate and to prevent the air-trapping. Cards: Patient is in shock on vasopressors most likely septic shock echo showed normal ejection fraction. There is some evidence of pericardial effusion no evidence of tamponade initial lactate was normal FEN-GI: Once shock is getting better we will advance diet Renal: Labs and output were reviewed ID: To cover with broad-spectrum antibiotics to repeat blood cultures Heme/Onc: Labs were reviewed Endo: Glucose Monitored Integ/MSK: Skin Care per routine ICU Nursing Protocol to prevent ulcers. Lines: All lines examined without evidence of infection : Dispo: Patient is critically ill family was updated CODE: Full code
[2018-10-01] MEDS: Artificial Tears SOLN 15 ML BOTTLE BOTH EYES SCH ×2 (15:39→20:03)
[2018-10-01 15:43] LABS: Troponin I 0.08 ng/mL (< 0.04)
[2018-10-01] MEDS ORDERED: Hydrocortisone Sodium Succ 100 MG/2 ML VIAL IVP SCH (16:00)
[2018-10-01 16:21] LABS: ABG Base Excess 0 mEq/L (-2 to 3); ABG HCO3 25 mEq/L (21-27); ABG Oxygen Saturation 100 % (95-98); ABG PCO2 40 mmHg (35-45); ABG PO2 340 mmHg (85-104); ABG TCO2 26 mEq/L (20-26); Blood Gas Modality ASSIST CONTROL; Blood Gas PEEP 5 cm H2O; Blood Gas VT 460 cc
--- NOTE | 2018-10-01 17:29 | Procedure Note ---
<Jimmy Freitas - Last Filed: 10/01/18 17:30> Date of procedure: 10/01/18 Pre-op diagnosis: acute respiratory failure Procedure: Date: 10/01/18 Time: 12:05 Indication: Respiratory Distress Resident: Jimmy Freitas Attending: Dr. Oniel Mishra The patient was placed in a flat position. Sedation was obtained using Versed 2mg, and additionally with Etomidate 20mg. The patient was easily ventilated using an ambu bag. The glidescope was used and inserted into the oropharynx at which time there was a view of the vocal cords. A 7.5-jordanian endotracheal tube was inserted and visualized going through the vocal cords. The stylette was removed. Colorimetric change was visualized on the CO2 meter. Breath sounds were heard in both lung edwards equally. The endotracheal tube was placed at 26 cm, measured at the teeth. Attending was present for the entire procedure. A chest x-ray was ordered to assess for pneumothorax and verify endotrachealtube placement. Estimated Blood Loss: 0cc The patient tolerated the procedure well and there were no complications. Was there an payroll human resources assistant present: No Estimated blood loss (cc): 0 Specimen: none Pathology: none sent Condition: critical Disposition: ICU <Oniel Mishra S - Last Filed: 10/01/18 22:32> Procedure: Present during the entire procedure assisted in critical portions of the procedure
[2018-10-01] MEDS: Pantoprazole 40 MG VIAL IVP SCH (17:46)
[2018-10-01] MEDS: Thiamine (B-1) 100 MG, Folic Acid 1 MG, MVI, adult with vitamin K 10 ML in 0.9 % Sodi... IVPB SCH (17:46)
[2018-10-01] MEDS: Chlorhexidine Rinse 15 ML MOUTHWASH MM SCH (20:03)
--- NOTE | 2018-10-01 22:53 | Nephrology Progress Note ---
Date of Encounter: 10/01/18 Time of Encounter: 12:00 - Assessment and Plan (1) Hyponatremia Current Visit: Yes Status: Acute Sodium noted at 125 this am, hypertonic saline no longer needed Fluid restriction 1.5 liter a day advised Continue serial sodium checks Will add salt in diet when able to eat Uric acid noted low with TSH WNL and elevated cortisol level noted (2) Altered mental status Current Visit: Yes Status: Acute Likely due to hyponatremia though not completely sure given mets to head Qualifiers: Altered mental status type: unspecified Qualified Code(s): R41.82 - Altered mental status, unspecified (3) Lung mass Current Visit: Yes Status: Acute Oncology eval per primary team (4) ETOH abuse Current Visit: Yes Status: Acute Withdrawal precautions per primary team MVI, thiamine and folate Subjective Interval history: Pt seen and examined resting comfortably on biPAP and pressor support Objective - Vital Signs Vital signs: Vital Signs Temp Pulse Resp BP Pulse Ox 10/01/18 22:00 74 18 103/51 98 10/01/18 21:33 18 104/54 98 10/01/18 21:00 76 18 107/49 98 10/01/18 20:10 77 10/01/18 20:07 100.0 F H 10/01/18 20:00 75 18 107/53 100 10/01/18 19:51 18 102/50 100 10/01/18 19:00 76 18 91/53 98 10/01/18 18:08 18 97 10/01/18 18:00 76 18 96/84 99 10/01/18 17:00 76 18 98/72 93 10/01/18 16:05 18 100 10/01/18 16:00 97.7 F 75 18 149/77 100 10/01/18 15:00 72 18 77/55 100 10/01/18 14:00 72 18 75/58 100 10/01/18 13:35 18 75/58 100 10/01/18 13:00 67 18 118/55 100 10/01/18 12:32 97.4 F L 87 12 104/55 98 10/01/18 12:00 87 12 104/55 98 10/01/18 11:01 22 95 10/01/18 11:00 97.4 F L 88 12 107/58 95 10/01/18 10:00 91 30 80/54 94 06/25/19 09:00 76 30 72/33 98 10/01/18 08:00 96.4 F L 85 22 99/41 97 10/01/18 07:00 84 27 90/60 98 10/01/18 06:00 91 29 86/67 93 10/01/18 05:00 88 24 99/53 93 10/01/18 04:00 90 24 106/49 97 10/01/18 03:00 96.2 F L 95 23 92/62 100 10/01/18 02:10 103 10/01/18 02:00 82 20 105/52 96 10/01/18 01:00 85 23 106/55 100 10/01/18 00:00 93 25 107/57 96 09/30/18 23:00 98.4 F 88 20 103/68 96 Intake and Output 10/01/18 10/01/18 10/01/18 07:59 15:59 23:59 Intake Total 910 / 1627 523 / 1627 194 / 1627 Output Total 200 / 565 290 / 565 75 / 565 Balance 710 / 1062 233 / 1062 119 / 1062 Intake: IV Fluids 910 / 1627 523 / 1627 194 / 1627 0.9 % Sodium Chloride 500 ML @ 500 / 500 1000 mls/hr IVC .Q30M PRN Rx#: [id number] 3% Sodium Chloride 500 ML @ 20 410 / 410 mls/hr IVC .Q24H [facility] Rx#: [id number] FentaNYL (PF) 1,000 MCG In 0.9 6 / 100 94 / 100 % Sodium Chloride 80 ML @ 50 MCG/HR 5 mls/hr IVC CONT [facility] Rx #:[id number] Levophed 4 MG In Dextrose 5% 167 / 167 250 ML @ 8 MCG/MIN 30.48 mls/hr IVC CONT [facility] Rx#:[id number] Zosyn 3.375 GM In 0.9 % Sodium 100 / 200 100 / 200 Chloride (Mini-Bag +) 100 ML @ 25 mls/hr IVPB Q8H [facility] Rx#: [id number] Vancocin 1,500 MG In 0.9 % 250 / 250 Sodium Chloride 250 ML @ 167 mls/hr IVPB Q12H [facility] Rx#: [id number] Output: Catheter 200 / 315 40 / 315 75 / 315 Gastric Drainage 250 / 250 Other: Blood Glucose* 95 - Lab 10/01/18 03:00 10/01/18 20:50 Most recent lab results 10/01/18 10/01/18 11:55 16:19 ABG pH 7.03 L* 7.40 D ABG pCO2 98 H* 40 D ABG pO2 72 L 340 H D ABG HCO3 26 25 ABG O2 Saturation 83 L 100 H Consult Discharge Plan - Plan Referrals: Giovani Wills MD [Primary Care Provider] -
[2018-10-02] MEDS: Artificial Tears SOLN 15 ML BOTTLE BOTH EYES SCH ×7 (00:02→23:20)
[2018-10-02 04:40] LABS: Basophils % 0.1 %; Eosinophils % 0.1 %; Hematocrit 28.8 % (35.3-44.9); Immature Granulocytes % 0.9 % (0-4); Lymphocytes # 0.5 K/mcL (0.6-4.6); Lymphocytes % 4.7 %; Mean Corpuscular Volume 94.1 fL (83.0-100.0); Mean Platelet Volume 9.3 fL (9.4-12.4); Monocytes # 1.3 K/mcL (0.0-1.3); Monocytes % 11.4 %; Neutrophils # 9.4 K/mcL (1.6-8.9); Platelet Count 192 K/mcL (140-400); Red Blood Count 3.06 M/mcL (3.82-4.97); Red Cell Distribution Width 13.2 % (11.5-14.5); Segmented Neutrophils % 82.8 %; White Blood Count 11.3 K/mcL (4.3-11.1)
[2018-10-02 04:46] LABS: Hemoglobin 9.5 g/dL (11.5-15.4)
[2018-10-02 04:50] LABS: ABG Base Excess -2 mEq/L (-2 to 3); ABG HCO3 21 mEq/L (21-27); ABG Oxygen Saturation 95 % (95-98); ABG PCO2 30 mmHg (35-45); ABG PH 7.46 pH Units (7.32-7.45); ABG PO2 73 mmHg (85-104); ABG TCO2 22 mEq/L (20-26); Blood Gas Modality AF; Blood Gas PEEP 5 cm H2O; Blood Gas VT 450 cc
[2018-10-02 05:01] LABS: Potassium 4.1 mEq/L (3.5-5.1)
[2018-10-02] MEDS: Pantoprazole 40 MG VIAL IVP SCH (05:28)
[2018-10-02] MEDS: *HR* Enoxaparin 40 MG/0.4 ML SYRINGE SQ SCH (05:28)
[2018-10-02] MEDS: Piperacillin/Tazobactam 3.375 GM in 0.9 % Sodium Chloride Mini Bag 100 ML IVPB SCH ×3 (05:28→23:18)
--- NOTE | 2018-10-02 06:23 | Pulmonology Progress Note ---
<Pierre Rincon S - Last Filed: 10/02/18 10:46> Date of Encounter: 10/02/18 Time of Encounter: 08:31 Assessment and Plan (1) Septic shock Current Visit: Yes Status: Acute Pt consulted to critical care on 10/01 for septic shock by Dr. Chavarria - etiology was unknown at the time of consult, likely secondary to PNA - criteria for septic shock have since resolved Meeting SIRS criteria for 0/4: WBC<12, afebrile, RRR, not tacypnic, BP remaining stable Did require intubation and failed CPAP trial on 10/02 Blood cx 10/01 ngtd Urine cx from 10/01 negative Sputum preliminary (+) for many WBC CT chest from admission - 3.5 cm mass in the right lower lobe surrounded by consolidated lung. This likely represents primary pulmonary malignancy - Multiple tiny nodules scattered throughout the right upper lobe and left lung - skeletal metastatic disease including pathologic left rib fractures and pathologic fracture of the right lesser trochanter - bilateral adrenal masses which are almost certainly metastatic - indeterminate liver lesions Plan: - continue IV abx: on vancomycin and zosyn day 2 - acetaminophen prn fever - vent bundle in place - restriant order placed - versed and fentanyl for pain and sedation - final blood cx pending - levophed to keep MAP>65, has since been weaned overnight - heme-onc consulted (2) Hyponatremia Current Visit: Yes Status: Acute On admission sodium 111, has since improved to 127 - was started on 3% NS, has since been held Plan: - continue daily sodium checks from now - seizure precautions in place, HOB elevation - nephrology consulted, appreciate recommendations fluid restriction 1.5 L per day salt tabs added to diet (3) Lung mass Current Visit: Yes Status: Acute CT chest on admission showing: - 3.5 cm mass in the right lower lobe surrounded by consolidated lung. This likely represents primary pulmonary malignancy. - There is right hilar and mediastinal adenopathy, skeletal metastatic disease including pathologic left rib fractures and pathologic fracture of the right lesser trochanter, and bilateral adrenal masses which are almost certainly metastatic. There are indeterminate liver lesions which are likely metastatic as well. - There is a large right pleural effusion, with atelectasis of the right lower and right middle lobes. - There is trace left pleural effusion. - Tiny nodules scattered throughout both lungs may represent granulomas or metastases Patient is not following with oncology at this time, this is a new diagnosis. Have consulted heme-onc. Will require tissue diagnosis/cytology. Plan for bronchoscopy at bedside today. (4) ETOH abuse Current Visit: Yes Status: Acute CIWA protocol. (5) Acute respiratory failure Current Visit: Yes Status: Acute See above. Qualifiers: Respiratory failure complication: unspecified whether with hypoxia or hypercapnia Qualified Code(s): J96.00 - Acute respiratory failure, unspecified whether with hypoxia or hypercapnia (6) Pneumonia Current Visit: Yes Status: Acute See plan as above. Qualifiers: Pneumonia type: due to unspecified organism Laterality: unspecified laterality Lung location: unspecified part of lung Qualified Code(s): J18.9 - Pneumonia, unspecified organism (7) Acute metabolic encephalopathy Current Visit: Yes Status: Acute Likely secondary to hyponatremia vs infxn. Subjective Principal diagnosis: Septic shock Interval history: Pt seen at bedside. Currently undergoing CPAP trial but will be flipped back onto ventilator. Appears uncomfortable. Objective PUL Vital signs: Last Vital Signs Temp 99.1 F 10/02/18 04:25 Pulse 70 10/02/18 06:00 Resp 18 10/02/18 06:00 BP 109/50 10/02/18 06:00 Pulse Ox 98 10/02/18 06:00 General appearance: appears uncomfortable Eyes: nonicteric ENT: oropharynx dry Auscultation: bilateral: diminished breath sounds, other (crackles bilaterally, coarse breath sounds) Cardiovascular: regular rate and rhythm Gastrointestinal: soft, non-tender, other (obese, nontender) Integumentary: normal Extremities: cool, edema (1+ pitting edema) Musculoskeletal: no deformities unable to assess due to mental status other (unable to assess due to mental status) Ventilator Settings Ventilator Settings: Ventilator Settings, Last 8 Hours Ventilator Tidal Volume 450 Setting Ventilator Tidal Volume 450 Setting Ventilator Tidal Volume 450 Setting Ventilator Tidal Volume 450 Setting Ventilator Tidal Volume 450 Setting Ventilator Tidal Volume 450 Setting Ventilator Tidal Volume 450 Setting Ventilator Tidal Volume 450 Setting Ventilator Tidal Volume 450 Setting Ventilator Tidal Volume 450 Setting Ventilator Tidal Volume 450 Setting Ventilator Tidal Volume 450 Setting Ventilator Respiratory Rate 18 Setting Ventilator Respiratory Rate 18 Setting Ventilator Respiratory Rate 18 Setting Ventilator Respiratory Rate 18 Setting Ventilator Respiratory Rate 18 Setting Ventilator Respiratory Rate 18 Setting Ventilator Respiratory Rate 18 Setting Ventilator Respiratory Rate 18 Setting Ventilator Respiratory Rate 18 Setting Ventilator Respiratory Rate 18 Setting Ventilator Respiratory Rate 18 Setting Ventilator Respiratory Rate 18 Setting Actual Respiratory Rate 18 Actual Respiratory Rate 18 Actual Respiratory Rate 18 Positive End Expiratory 5 Pressure Positive End Expiratory 5 Pressure Positive End Expiratory 5 Pressure Positive End Expiratory 5 Pressure Positive End Expiratory 5 Pressure Positive End Expiratory 5 Pressure Positive End Expiratory 5 Pressure Positive End Expiratory 5 Pressure Positive End Expiratory 5 Pressure Positive End Expiratory 5 Pressure Positive End Expiratory 5 Pressure Positive End Expiratory 5 Pressure Peak Inspiratory Airway 33 Pressure Peak Inspiratory Airway 34 Pressure Peak Inspiratory Airway 35 Pressure Results - Laboratory Findings CBC and BMP: 10/02/18 03:40 10/02/18 03:40 ABG ABG pH 7.46 pH Units (7.32-7.45) H 10/02/18 04:47 ABG pCO2 30 mmHg (35-45) L 10/02/18 04:47 ABG pO2 73 mmHg (85-104) L 10/02/18 04:47 ABG O2 Saturation 95 % (95-98) 10/02/18 04:47 PT/INR, D-dimer PT 11.4 Seconds (9.4-12.1) 10/01/18 03:35 Abnormal lab findings: Abnormal lab results WBC 11.3 K/mcL (4.3-11.1) H 10/02/18 03:40 RBC 3.06 M/mcL (3.82-4.97) L 10/02/18 03:40 Hgb 9.5 g/dL (11.5-15.4) L D 10/02/18 03:40 Hct 28.8 % (35.3-44.9) L 10/02/18 03:40 MPV 9.3 fL (9.4-12.4) L 10/02/18 03:40 9.4 K/mcL (1.6-8.9) H 10/02/18 03:40 0.5 K/mcL (0.6-4.6) L 10/02/18 03:40 1.5 K/mcL (0.0-1.3) H 10/01/18 03:00 ABG pH 7.46 pH Units (7.32-7.45) H 10/02/18 04:47 ABG pCO2 30 mmHg (35-45) L 10/02/18 04:47 ABG pO2 73 mmHg (85-104) L 10/02/18 04:47 ABG HCO3 28 mEq/L (21-27) H 10/01/18 10:32 ABG Total CO2 29 mEq/L (20-26) H 10/01/18 11:55 ABG O2 Saturation 100 % (95-98) H 10/01/18 16:19 ABG Base Excess -8 mEq/L (-2 to 3) L 10/01/18 11:55 Sodium 127 mEq/L (136-145) L 10/02/18 03:40 Chloride 94 mEq/L (98-107) L 10/02/18 03:40 Carbon Dioxide 22 mEq/L (23-29) L 10/02/18 03:40 BUN 7 mg/dL (8-23) L 09/30/18 04:07 0.42 mg/dL (0.60-1.20) L 09/30/18 04:07 Est GFR ( Amer) 55 (> 60) L 10/02/18 03:40 Est GFR (Non-Af Amer) 46 (> 60) L 10/02/18 03:40 Glucose 120 mg/dL (70-105) H 10/01/18 08:00 POC Glucose 108 mg/dL (70-99) H 09/29/18 17:38 259 mOsm/kg (280-300) L 09/30/18 18:02 266 (280-300) L 10/02/18 03:40 Venous Ioniz Calcium 0.94 mmol/L (1.15-1.35) L 10/01/18 09:50 Phosphorus 4.6 mg/dL (2.7-4.5) H 10/01/18 03:35 Magnesium 1.3 mg/dL (1.6-2.6) L 09/30/18 04:07 AST 55 Units/L (13-39) H 10/01/18 03:35 258 Units/L (34-104) H 10/01/18 03:35 0.10 ng/mL (< 0.04) H* 10/02/18 03:40 B-Natriuretic Peptide 192 pg/mL (Less than 100) H 09/29/18 13:49 6.1 g/dL (6.4-8.9) L 10/01/18 03:35 3.1 g/dL (3.5-5.7) L 10/01/18 03:35 1.0 (1.1-2.2) L 10/01/18 03:35 30 mg/dL (Neg-Trace) H 09/29/18 11:40 15 mg/dL (Negative) H 09/29/18 11:40 Small (Negative) H 09/29/18 11:40 5-15 per hpf (0-3) H 09/29/18 11:40 Ur Squamous Epith Cells Many per lpf (None-Few) H 09/29/18 11:40 Hyaline Casts Moderate per lpf (None-Few) H 09/29/18 11:40 - Microbiology Findings Microbiology Findings: Microbiology, Last 48 Hours 10/01/18 13:47 Sputum Culture - Preliminary Sputum 10/01/18 09:15 Urine Culture - Preliminary Urine,[place] Culture is incubating. 10/01/18 09:35 Blood Culture - Preliminary Peripheral Venipuncture Culture is incubating and being continuously monitored for growth. Final report to follow. 10/01/18 09:27 Blood Culture - Preliminary Peripheral Venipuncture Culture is incubating and being continuously monitored for growth. Final report to follow. - Clinical Findings Intake & Output: Intake & Output 10/01/18 10/01/18 10/02/18 15:59 23:59 07:59 Intake Total 523 / 1654 221 / 1654 941.2 / 941.2 Output Total 290 / 615 125 / 615 250 / 250 Balance 233 / 1039 96 / 1039 691.2 / 691.2 Weight 106.5 kg Consult Discharge Plan - Plan Referrals: Giovani Wills MD [Primary Care Provider] - <Oniel Mishra - Last Filed: 10/02/18 22:56> Date of Encounter: 10/02/18 Objective PUL Vital signs: Last Vital Signs Temp 98.5 F 10/02/18 21:21 Pulse 84 10/02/18 21:00 Resp 18 10/02/18 21:54 BP 111/64 10/02/18 21:54 Pulse Ox 95 10/02/18 21:54 Ventilator Settings Ventilator Settings: Ventilator Settings, Last 8 Hours Ventilator Tidal Volume 450 Setting Ventilator Tidal Volume 450 Setting Ventilator Tidal Volume 450 Setting Ventilator Tidal Volume 450 Setting Ventilator Tidal Volume 450 Setting Ventilator Tidal Volume 450 Setting Ventilator Tidal Volume 450 Setting Ventilator Tidal Volume 450 Setting Ventilator Tidal Volume 450 Setting Ventilator Tidal Volume 450 Setting Ventilator Tidal Volume 450 Setting Ventilator Respiratory Rate 18 Setting Ventilator Respiratory Rate 18 Setting Ventilator Respiratory Rate 18 Setting Ventilator Respiratory Rate 18 Setting Ventilator Respiratory Rate 18 Setting Ventilator Respiratory Rate 18 Setting Ventilator Respiratory Rate 18 Setting Ventilator Respiratory Rate 18 Setting Ventilator Respiratory Rate 18 Setting Ventilator Respiratory Rate 18 Setting Ventilator Respiratory Rate 18 Setting Actual Respiratory Rate 18 Actual Respiratory Rate 18 Actual Respiratory Rate 18 Actual Respiratory Rate 18 Actual Respiratory Rate 18 Actual Respiratory Rate 18 Actual Respiratory Rate 18 Actual Respiratory Rate 18 Positive End Expiratory 5 Pressure Positive End Expiratory 5 Pressure Positive End Expiratory 5 Pressure Positive End Expiratory 5 Pressure Positive End Expiratory 5 Pressure Positive End Expiratory 5 Pressure Positive End Expiratory 5 Pressure Positive End Expiratory 5 Pressure Positive End Expiratory 5 Pressure Positive End Expiratory 5 Pressure Positive End Expiratory 5 Pressure Peak Inspiratory Airway 42 Pressure Peak Inspiratory Airway 43 Pressure Peak Inspiratory Airway 39 Pressure Peak Inspiratory Airway 41 Pressure Peak Inspiratory Airway 39 Pressure Peak Inspiratory Airway 47 Pressure Peak Inspiratory Airway 37 Pressure Peak Inspiratory Airway 40 Pressure Results - Laboratory Findings CBC and BMP: 10/02/18 03:40 10/02/18 03:40 ABG ABG pH 7.46 pH Units (7.32-7.45) H 10/02/18 04:47 ABG pCO2 30 mmHg (35-45) L 10/02/18 04:47 ABG pO2 73 mmHg (85-104) L 10/02/18 04:47 ABG O2 Saturation 95 % (95-98) 10/02/18 04:47 PT/INR, D-dimer PT 11.4 Seconds (9.4-12.1) 10/01/18 03:35 Abnormal lab findings: Abnormal lab results WBC 11.3 K/mcL (4.3-11.1) H 10/02/18 03:40 RBC 3.06 M/mcL (3.82-4.97) L 10/02/18 03:40 Hgb 9.5 g/dL (11.5-15.4) L D 10/02/18 03:40 Hct 28.8 % (35.3-44.9) L 10/02/18 03:40 MPV 9.3 fL (9.4-12.4) L 10/02/18 03:40 9.4 K/mcL (1.6-8.9) H 10/02/18 03:40 0.5 K/mcL (0.6-4.6) L 10/02/18 03:40 1.5 K/mcL (0.0-1.3) H 10/01/18 03:00 ABG pH 7.46 pH Units (7.32-7.45) H 10/02/18 04:47 ABG pCO2 30 mmHg (35-45) L 10/02/18 04:47 ABG pO2 73 mmHg (85-104) L 10/02/18 04:47 ABG HCO3 28 mEq/L (21-27) H 10/01/18 10:32 ABG Total CO2 29 mEq/L (20-26) H 10/01/18 11:55 ABG O2 Saturation 100 % (95-98) H 10/01/18 16:19 ABG Base Excess -8 mEq/L (-2 to 3) L 10/01/18 11:55 Sodium 127 mEq/L (136-145) L 10/02/18 03:40 Chloride 94 mEq/L (98-107) L 10/02/18 03:40 Carbon Dioxide 22 mEq/L (23-29) L 10/02/18 03:40 BUN 7 mg/dL (8-23) L 09/30/18 04:07 0.42 mg/dL (0.60-1.20) L 09/30/18 04:07 Est GFR ( Amer) 55 (> 60) L 10/02/18 03:40 Est GFR (Non-Af Amer) 46 (> 60) L 10/02/18 03:40 Glucose 120 mg/dL (70-105) H 10/01/18 08:00 POC Glucose 108 mg/dL (70-99) H 09/29/18 17:38 259 mOsm/kg (280-300) L 09/30/18 18:02 266 (280-300) L 10/02/18 03:40 Venous Ioniz Calcium 0.94 mmol/L (1.15-1.35) L 10/01/18 09:50 Phosphorus 4.6 mg/dL (2.7-4.5) H 10/01/18 03:35 Magnesium 1.3 mg/dL (1.6-2.6) L 09/30/18 04:07 AST 55 Units/L (13-39) H 10/01/18 03:35 258 Units/L (34-104) H 10/01/18 03:35 0.10 ng/mL (< 0.04) H* 10/02/18 03:40 B-Natriuretic Peptide 192 pg/mL (Less than 100) H 09/29/18 13:49 6.1 g/dL (6.4-8.9) L 10/01/18 03:35 3.1 g/dL (3.5-5.7) L 10/01/18 03:35 1.0 (1.1-2.2) L 10/01/18 03:35 30 mg/dL (Neg-Trace) H 09/29/18 11:40 15 mg/dL (Negative) H 09/29/18 11:40 Small (Negative) H 09/29/18 11:40 5-15 per hpf (0-3) H 09/29/18 11:40 Ur Squamous Epith Cells Many per lpf (None-Few) H 09/29/18 11:40 Hyaline Casts Moderate per lpf (None-Few) H 09/29/18 11:40 Fluid Appearance Cloudy (Clear) A 10/02/18 14:38 Fluid Appearance Slightly Hazy (Clear) A 10/02/18 14:38 - Microbiology Findings Microbiology Findings: Microbiology, Last 48 Hours 10/02/18 13:27 Respiratory Culture - Preliminary Right Lower Lobe Lung Culture is incubating. 10/02/18 13:27 Respiratory Culture - Preliminary Right Lower Lobe Lung Culture is incubating. 10/01/18 09:15 Urine Culture - Final Urine,[place] No growth. 10/01/18 13:47 Sputum Culture - Preliminary Sputum 10/01/18 09:35 Blood Culture - Preliminary Peripheral Venipuncture Culture is incubating and being continuously monitored for growth. Final report to follow. 10/01/18 09:27 Blood Culture - Preliminary Peripheral Venipuncture Culture is incubating and being continuously monitored for growth. Final report to follow. - Clinical Findings Intake & Output: Intake & Output 10/02/18 10/02/18 10/02/18 07:59 15:59 23:59 Intake Total 1043.2 / 2014.2 487 / 2014.2 485 / 2014.2 Output Total 250 / 875 225 / 875 400 / 875 Balance 793.2 / 1140.2 262 / 1140.2 85 / 1140.2 - Attending Attestation - Attending Attestation I saw and evaluated this patient and my medical decision-making was reviewed with the Resident Physician. I agree with the documented findings, disposition and treatment plan as described except to the extent set forth below. We independently had [id number] contact with the patient I spent 40 minutes of Critical Care time with this patient. It involved decision making of high complexity to assess, manipulate, and support vital organ system failure and/or to prevent further life threatening deterioration of the patient's condition. The time involved in the performance of separately reportable procedures was not counted toward critical care time. Patient seen and examined at bedside Labs, radiology, chart personally reviewed. Management was reviewed during multidisciplinary critical care rounds. SIDE SEAM TENDER: Patient on initial exam was completely comatose most likely due to toxic/metabolic encephalopathy patient had severe respiratory acidosis did not respond to BiPAP 10/02 patient is completely stuporous when opening her eyes following commands most likely toxic/metabolic encephalopathy Pulm: Patient has possible right lower lobe lung malignancy with the mediastinal LN lymphadenopathy. Right lower lobe pneumonia we will do bronchoscopy tomorrow for airway exam and bronchoalveolar lavage. Patient has acceptable oxygenation and ventilation low tidal volume strategy with adequate respiratory rate and to prevent the air-trapping. 10/02 consult for postobstructive pneumonia versus to find out and endobronchial lesion for biopsy. Bronchoscope was introduced specialist right lower lobe with the nodular mucosa with extrinsic compression of the mass TRIED do Cytobrush and endobronchial biopsy Suction channel was a little bit smaller for the Cytobrush and endobronchial biopsy BAL was done patient started to desaturate did not want to further pursue with biopsy or Cytobrush Cards: Patient is in shock on vasopressors most likely septic shock echo showed normal ejection fraction. There is some evidence of pericardial effusion no evidence of tamponade initial lactate was normal 10/02 patient today is on vasopressor FEN-GI:Advance diet as tolerated Renal: Labs and output were reviewed ID: To cover with broad-spectrum antibiotics to repeat blood cultures Heme/Onc: Labs were reviewed. Patient has most likely right lower lobe lung cancer with metastatic mediastinal lymphadenopathy with metastasis to bones liver adrenals since patient has poor functional status before this critical illness oncology recommended palliative care patient will not be a candidate for any chemotherapy or radiotherapy they recommended hospice care Endo: Glucose Monitored Integ/MSK: Skin Care per routine ICU Nursing Protocol to prevent ulcers. Lines: All lines examined without evidence of infection : Dispo: Oncology recommended palliative care CODE: Full code
[2018-10-02] MEDS: FentaNYL (PF) 1,000 MCG in 0.9 % Sodium Chloride 80 ML IVC SCH ×2 (07:41→17:45)
[2018-10-02] MEDS: Chlorhexidine Rinse 15 ML MOUTHWASH MM SCH ×2 (08:18→20:36)
[2018-10-02] MEDS: PrednisoLONE Acetate 1% Opth 5 ML BOTTLE RIGHT EYE SCH ×3 (08:20→20:36)
[2018-10-02] MEDS: Norepinephrine 4 MG in D5% in Water 250 ML IVC SCH ×2 (09:30→15:10)
[2018-10-02] MEDS: Albumin 25% 25gram/100mL 25 GM/100 ML IV.SOLN IVC SCH ×4 (12:16→18:26)
--- NOTE | 2018-10-02 15:49 | Oncology Inp Consult Note ---
<Dereje Pereira - Last Filed: 10/02/18 21:31> Date of Encounter: 10/02/18 - Data of Consult Requesting Physician: Von Chavarria Primary Care Provider: Giovani Wills MD Medications and Allergies Aspirin [Lo-Dose Aspirin EC] 81 mg PO DAILY 06/28/18 [History] Atenolol [Tenormin] 50 mg PO DAILY 06/28/18 [History] Cholecalciferol (Vitamin D3) [Vitamin D] 2,000 unit PO DAILY 06/28/18 [History] Loratadine [Allergy Relief] 10 mg PO DAILY PRN 06/28/18 [History] Losartan Potassium [Cozaar] 50 mg PO DAILY 06/28/18 [History] Mv-Mn/FA/Vit K/Lycop/Lut/Coq10 [Daily Multivitamin Capsule] 1 each PO DAILY 06/28/18 [History] Prednisolone Acetate/Pf [Prednisolone Acet 1% Eye Drop] 1 drop RIGHT EYE TID 09/29/18 [History] Sodium Bicarbonate 325 mg PO BID 09/29/18 [History] Allergy/AdvReac Type Severity Reaction Status Date / Time No Known Allergies Allergy Verified 06/28/18 11:40 Consult Discharge Plan - Plan Referrals: Giovani Wills MD [Primary Care Provider] - - Attending Attestation I have seen and examined Ms. Marcelino and agree with the impression and plan put in place by Rob Chad. She has been ill for sometime per her daughter. She has required assistance with ADLs for the past few months. She is essentially bed/chair bound and is unable to ambulate to the commode. Has been urinating in an ice cream tub. She is an alcoholic. She has been admitted with progressive weakness and confusion. She is not intubated. Found to be severely hyponatremic. CT chest at time of admission which I personally reviewed revealed a 3.5 cm mass in the right lower lobe surrounded by consolidated lung. Multiple tiny nodules scattered throughout the right upper lobe and left lung. Skeletal metastatic disease including pathologic left rib fractures and pathologic fracture of the right lesser trochanter. Bilateral adrenal masses and indeterminate but suspicious-appearing liver lesions. She is currently sedated and intubated. She is on pressors. Bronchoscopy has been obtained with biopsy with pathology pending. She has metastatic lung carcinoma. Unfortunately, she is not a treatment candidate. Not only is she critically ill, she had a PS of 3 prior to her hospitalization. I would recommend palliative/hospice measures moving forward. This was d/w her daughter at her bedside. We will be available for further consultation if need be. Inpatient Charges Provider: Dr. Melanie Pereira Consult - Inpatient Medicare Only: [id number] <Avery Bonilla Jr - Last Filed: 10/03/18 10:52> Date of Encounter: 10/03/18 Time of Encounter: 15:46 Assessment and Plan (1) Lung mass Status: Acute Assessment and plan: The patient is a 68-year-old female intubated in the intensive care unit currently for septic shock. Upon admission to hospital patient was seen to have probable metastatic lung cancer to bilateral adrenal glands, right hip, ribs, skull, liver metastases. Patient has poor functional status at home. This is likely small cell lung cancer with metastatic disease to multiple distant sites. Based on her other comorbidities and current state, she would most likely not clinically benefit from any type of cancer treatment. Our recommendation is supportive measures, medical stabilization, and referral for palliative care for further discussion of palliative care and possible hospice. Patient did have lung biopsy today and pathology is pending. We will continue to follow along (2) Metastatic lung cancer (metastasis from lung to other site) Status: Acute Qualifiers: Laterality: right Qualified Code(s): C34.91 - Malignant neoplasm of unspecified part of right bronchus or lung - Data of Consult Patient: new to practice Consult date: 10/02/18 Requesting Physician: Von Chavarria Primary Care Provider: Giovani Wills MD - Consult Narrative Reason for consult: lung mass with metastatic disease History of present illness: Lilian Marcelino is a 68 F w hx obesity, former smoker, HTN, EtOH use disorder, who p/w back pain, SOB, and leg pain. For several weeks she's noticed difficulty breathing, and wants to ask about getting some oxygen at home. She's a former smoker, quit 01/2018, who denies known history of lung problems. She also states both pain and numbness in her b/l legs causing her difficulty walking. She finds it difficult to get comfortable due to her back pain. She says she was recently started on salt tabs due to low salt levels, but otherwise just takes blood pressure meds and vitamins/supplements. She denies cough, fever, chills, abd pain, N/V/D, or rash. She no longer smokes, does drink EtOH few beers daily. Recently underwent retinal surgery. In the ED, vitals remarkable for RR 22, SBP 180s. She was initially groggy appearing, but subsequently became near-unresponsive. Labs significant for Na 111. CT chest/abd shows large 3.5 cm RLL lung mass, with skeletal adrenal, liver, and skull mets. CVC placed and started on 3% saline per Neph consultation. Given doses of zosyn and azithro presumably for meeting sepsis criteria as blood cultures also drawn. Admitted to ICU. Now intubated Past Med Surg Social Fam HX - Past Medical History Medical history: hypertension, other Additional medical history: alcoholism Psychiatric history: no psych history - Social History Smoking Status: Former smoker Smokeless Tobacco Status: No Alcohol use: heavy, recent Drug use: none ROS unobtainable: due to endotracheal tube Oncology - Exam - Constitutional General appearance: no acute distress - Head Head exam: Present: normal inspection, normocephalic - Eye Eye exam: Present: PERRL - Respiratory Respiratory exam: Present: decreased breath sounds - Cardiovascular Cardiovascular exam: Present: RRR - GI/Abdominal GI/Abdominal exam: Present: soft - Extremities Exam Extremities exam: Present: pedal edema - Skin Skin exam: Present: dry, intact, warm Oncology Inpatient Results Labs: Laboratory Last Values WBC 11.3 K/mcL (4.3-11.1) H 10/02/18 03:40 RBC 3.06 M/mcL (3.82-4.97) L 10/02/18 03:40 Hgb 9.5 g/dL (11.5-15.4) L D 10/02/18 03:40 Hct 28.8 % (35.3-44.9) L 10/02/18 03:40 MCV 94.1 fL (83.0-100.0) 10/02/18 03:40 MCH 31.0 pg (28.0-33.3) 10/02/18 03:40 MCHC 33.0 g/dL (31.6-35.5) 10/02/18 03:40 RDW 13.2 % (11.5-14.5) 10/02/18 03:40 Plt Count 192 K/mcL (140-400) 10/02/18 03:40 MPV 9.3 fL (9.4-12.4) L 10/02/18 03:40 Immature Gran % 0.9 % (0-4) 10/02/18 03:40 Seg Neutrophils % 82.8 % 10/02/18 03:40 4.7 % 10/02/18 03:40 11.4 % 10/02/18 03:40 0.1 % 10/02/18 03:40 0.1 % 10/02/18 03:40 9.4 K/mcL (1.6-8.9) H 10/02/18 03:40 0.5 K/mcL (0.6-4.6) L 10/02/18 03:40 1.3 K/mcL (0.0-1.3) 10/02/18 03:40 0.0 K/mcL (0.0-0.6) 10/02/18 03:40 0.0 K/mcL (0.0-0.2) 10/02/18 03:40 PT 11.4 Seconds (9.4-12.1) 10/01/18 03:35 INR 1.0 10/01/18 03:35 Sample Site L Brach 10/02/18 04:47 ABG pH 7.46 pH Units (7.32-7.45) H 10/02/18 04:47 ABG pCO2 30 mmHg (35-45) L 10/02/18 04:47 ABG pO2 73 mmHg (85-104) L 10/02/18 04:47 ABG HCO3 21 mEq/L (21-27) 10/02/18 04:47 ABG Total CO2 22 mEq/L (20-26) 10/02/18 04:47 ABG O2 Saturation 95 % (95-98) 10/02/18 04:47 ABG Base Excess -2 mEq/L (-2 to 3) 10/02/18 04:47 N/A 10/02/18 04:47 Respiration Rate 18 10/02/18 04:47 O2 Delivery Device Adult Vent 10/02/18 04:47 AF 10/02/18 04:47 Inspired O2 40.0 (1-15=lpm [id number]=%) 10/02/18 04:47 Tidal Volume 450 cc 10/02/18 04:47 PEEP 5 cm H2O 10/02/18 04:47 Sodium 127 mEq/L (136-145) L 10/02/18 03:40 Potassium 4.1 mEq/L (3.5-5.1) 10/02/18 03:40 Chloride 94 mEq/L (98-107) L 10/02/18 03:40 Carbon Dioxide 22 mEq/L (23-29) L 10/02/18 03:40 BUN 20 mg/dL (8-23) 10/02/18 03:40 1.18 mg/dL (0.60-1.20) 10/02/18 03:40 Est GFR ( Amer) 55 (> 60) L 10/02/18 03:40 Est GFR (Non-Af Amer) 46 (> 60) L 10/02/18 03:40 17 (6-26) 10/02/18 03:40 Glucose 83 mg/dL (70-105) 10/02/18 03:40 POC Glucose 87 mg/dL (70-99) 10/01/18 23:22 259 mOsm/kg (280-300) L 09/30/18 18:02 266 (280-300) L 10/02/18 03:40 Lactic Acid 1.6 mmol/L (0.5-2.2) 10/01/18 09:27 3.6 mg/dL (2.3-7.6) 09/30/18 17:40 Calcium 9.0 mg/dL (8.6-10.3) 10/02/18 03:40 Venous Ioniz Calcium 0.94 mmol/L (1.15-1.35) L 10/01/18 09:50 Phosphorus 4.6 mg/dL (2.7-4.5) H 10/01/18 03:35 Magnesium 2.1 mg/dL (1.6-2.6) 10/01/18 08:00 0.3 mg/dL (0.3-1.0) 10/01/18 03:35 0.1 mg/dL (0.0-0.2) 10/01/18 03:35 0.2 mg/dL (0.0-1.2) 10/01/18 03:35 AST 55 Units/L (13-39) H 10/01/18 03:35 ALT 19 Units/L (7-52) 10/01/18 03:35 258 Units/L (34-104) H 10/01/18 03:35 0.10 ng/mL (< 0.04) H* 10/02/18 03:40 B-Natriuretic Peptide 192 pg/mL (Less than 100) H 09/29/18 13:49 6.1 g/dL (6.4-8.9) L 10/01/18 03:35 3.1 g/dL (3.5-5.7) L 10/01/18 03:35 3.0 g/dL (2.4-3.5) 10/01/18 03:35 1.0 (1.1-2.2) L 10/01/18 03:35 TSH 0.371 mcIU/mL (0.340-5.600) 10/01/18 03:00 55.2 mcg/dl 10/01/18 08:00 Yellow (Yellow) 09/29/18 11:40 Clear (Clear) 09/29/18 11:40 6.0 pH Units (5.0-8.0) 09/29/18 11:40 Ur Specific [place] 1.014 (1.010-1.025) 09/29/18 11:40 30 mg/dL (Neg-Trace) H 09/29/18 11:40 Normal mg/dL (Normal) 09/29/18 11:40 15 mg/dL (Negative) H 09/29/18 11:40 Negative (Negative) 09/29/18 11:40 Negative (Negative) 09/29/18 11:40 Small (Negative) H 09/29/18 11:40 Normal mg/dL (Normal) 09/29/18 11:40 Ur Leukocyte Esterase Negative (Negative) 09/29/18 11:40 5-15 per hpf (0-3) H 09/29/18 11:40 0-3 per hpf (0-3) 09/29/18 11:40 Ur Squamous Epith Cells Many per lpf (None-Few) H 09/29/18 11:40 Ur Transition Epith Cell Few per hpf (None-Few) 09/29/18 11:40 None Seen per hpf (None-Few) 09/29/18 11:40 Hyaline Casts Moderate per lpf (None-Few) H 09/29/18 11:40 Ur Culture Indicated? NO (NO) 09/29/18 11:40 389 mOsm/kg (300-1090) 09/29/18 16:19 20.2 mEq/L 09/29/18 16:19 Ethyl Alcohol < 10 mg/dL (Less than 10) 09/29/18 12:40 Hemolyzed 09/29/18 13:03 Person Notif of Kalpana rashid 10/01/18 11:55
[2018-10-02] MEDS: Thiamine (B-1) 100 MG, Folic Acid 1 MG, MVI, adult with vitamin K 10 ML in 0.9 % Sodi... IVPB SCH (17:21)
[2018-10-02 19:06] LABS: Appearance of Body Fluid Cloudy (Clear); Volume of Body Fluid 20 mL
[2018-10-02 19:17] LABS: Appearance of Body Fluid Slightly Hazy (Clear); Volume of Body Fluid 5 mL
--- NOTE | 2018-10-02 23:55 | Nephrology Progress Note ---
Date of Encounter: 10/02/18 Time of Encounter: 12:00 - Assessment and Plan (1) Acute respiratory failure Current Visit: Yes Status: Acute Vent management per critical care Qualifiers: Respiratory failure complication: unspecified whether with hypoxia or hypercapnia Qualified Code(s): J96.00 - Acute respiratory failure, unspecified whether with hypoxia or hypercapnia (2) Hyponatremia Current Visit: Yes Status: Acute Sodium noted at 127 stable, off hypertonic saline Continue fluid restriction 1.5 liter a day if possible Continue salt tabs Uric acid noted low with TSH WNL and elevated cortisol level noted (3) Altered mental status Current Visit: Yes Status: Acute per primary, now intubated Qualifiers: Altered mental status type: unspecified Qualified Code(s): R41.82 - Altered mental status, unspecified (4) Lung mass Current Visit: Yes Status: Acute Oncology eval per primary team (5) ETOH abuse Current Visit: Yes Status: Acute Withdrawal precautions per primary team MVI, thiamine and folate Subjective Principal diagnosis: Septic shock Interval history: Pt seen and examined now intubated and sedated with no family at bedside and aslo on pressor support. Decreased UOP per nurse noted Objective - Vital Signs Vital signs: Vital Signs Temp Pulse Resp BP Pulse Ox 10/02/18 23:45 18 116/68 93 10/02/18 23:23 69 10/02/18 23:00 76 18 115/75 97 10/02/18 22:00 76 18 129/75 97 10/02/18 21:54 18 111/64 95 10/02/18 21:21 98.5 F 10/02/18 21:00 84 18 118/66 97 10/02/18 20:50 74 10/02/18 20:05 18 142/70 97 10/02/18 20:00 79 18 142/87 97 10/02/18 19:00 72 18 117/86 96 10/02/18 18:00 70 18 114/69 93 10/02/18 17:13 18 113/59 100 10/02/18 17:11 97.9 F 10/02/18 16:54 69 18 110/66 100 10/02/18 16:00 69 18 125/68 98 10/02/18 15:02 18 108/53 97 10/02/18 15:00 68 18 108/53 97 10/02/18 14:00 68 18 92/50 96 10/02/18 13:15 18 97/64 98 10/02/18 13:00 67 18 97/64 100 10/02/18 12:19 98.3 F 10/02/18 12:00 67 18 95/65 98 10/02/18 11:11 18 101/52 99 10/02/18 11:00 67 10/02/18 10:50 67 18 110/60 99 10/02/18 10:00 68 18 118/62 99 10/02/18 09:55 18 118/62 99 10/02/18 09:00 69 18 105/60 97 10/02/18 08:55 98.4 F 10/02/18 08:00 71 18 100/54 94 10/02/18 07:28 21 122/57 90 10/02/18 07:00 88 18 105/48 97 10/02/18 06:00 70 18 109/50 98 10/02/18 05:38 18 100/55 98 10/02/18 05:18 73 18 99/72 97 10/02/18 04:25 99.1 F 10/02/18 04:00 69 18 99/57 98 10/02/18 03:52 69 10/02/18 03:51 18 104/52 98 10/02/18 03:00 69 18 108/59 96 10/02/18 02:00 71 18 111/54 96 10/02/18 01:18 18 116/60 97 10/02/18 01:00 72 18 116/60 97 10/02/18 00:00 73 18 108/53 97 Intake and Output 10/02/18 10/02/18 10/02/18 07:59 15:59 23:59 Intake Total 1043.2 2014.2 487 2014.2 485 2014.2 Output Total 250 / 875 225 / 875 400 / 875 Balance 793.2 / 1140.2 262 / 1140.2 85 / 1140.2 Intake: IV Fluids 1043.2014.2 487 2014.2 485 2014.2 3% Sodium Chloride 500 ML @ 20 0 / 0 mls/hr IVC .Q24H [facility] Rx#: [id number] Flexbumin 25 gm In 100 ml @ 60 100 / 400 300 / 400 mls/hr IVC .Q1H40M [facility] Rx#: [id number] FentaNYL (PF) 1,000 MCG In 0.9 100 / 200 15 / 200 85 / 200 % Sodium Chloride 80 ML @ 50 MCG/HR 5 mls/hr IVC CONT [facility] Rx #:[id number] Versed 50 MG In 0.9 % Sodium 82 / 100 18 / 100 Chloride 90 ML @ 2 MG/HR 4 mls/ hr IVC CONT [facility] Rx#:[id number] Levophed 4 MG In Dextrose 5% 4 / 4 250 ML @ 8 MCG/MIN 30.48 mls/hr IVC CONT [facility] Rx#:[id number] Zosyn 3.375 GM In 0.9 % Sodium 100 / 300 100 / 300 100 / 300 Chloride (Mini-Bag +) 100 ML @ 25 mls/hr IVPB Q8H [facility] Rx#: [id number] Vitamin B-1 100 MG Folvite 1 MG 511.2 / 511.2 M.v.i. Adult 10 ml In 0.9 % Sodium Chloride 500 ML @ 85.2 mls/hr IVPB DAILY@1800 [facility] Rx#: [id number] Vancocin 1,500 MG In 0.9 % 250 / 500 250 / 500 Sodium Chloride 250 ML @ 167 mls/hr IVPB Q12H [facility] Rx#: [id number] Output: Catheter 50 / 325 125 / 325 150 / 325 Gastric Drainage 200 / 550 100 / 550 250 / 550 Other: Blood Glucose* 76 72 - General Appearance General appearance: Present: sedated on ventilator, intubated EENT: Present: ATNC, mucous membranes moist Neck: Present: no JVD, supple Respiratory: Present: course breath sounds Cardiology: Present: edema (LE bilat), normal S1, normal S2 Gastrointestinal: Present: no tenderness, no guarding, obese Integumentary: Present: cool/clammy (LE bilat) Additional Comments: sedated Musculoskeletal: Present: no deformities Additional Comments: sedated - Lab 10/02/18 03:40 10/02/18 03:40 Consult Discharge Plan - Plan Referrals: Giovani Wills MD [Primary Care Provider] -
[2018-10-03] MEDS: Artificial Tears SOLN 15 ML BOTTLE BOTH EYES SCH ×6 (03:05→23:02)
[2018-10-03] MEDS: FentaNYL (PF) 1,000 MCG in 0.9 % Sodium Chloride 80 ML IVC SCH ×2 (04:25→14:30)
[2018-10-03 04:56] LABS: Basophils % 0.1 %; Eosinophils # 0.1 K/mcL (0.0-0.6); Eosinophils % 0.5 %; Hematocrit 25.8 % (35.3-44.9); Hemoglobin 8.7 g/dL (11.5-15.4); Immature Granulocytes % 1.3 % (0-4); Lymphocytes # 0.5 K/mcL (0.6-4.6); Lymphocytes % 3.8 %; Mean Corpuscular HGB Conc 33.7 g/dL (31.6-35.5); Mean Corpuscular Hemoglobin 31.9 pg (28.0-33.3); Mean Corpuscular Volume 94.5 fL (83.0-100.0); Mean Platelet Volume 9.1 fL (9.4-12.4); Monocytes # 1.3 K/mcL (0.0-1.3); Monocytes % 9.9 %; Neutrophils # 10.8 K/mcL (1.6-8.9); Platelet Count 157 K/mcL (140-400); Red Blood Count 2.73 M/mcL (3.82-4.97); Red Cell Distribution Width 13.8 % (11.5-14.5); Segmented Neutrophils % 84.4 %; White Blood Count 12.8 K/mcL (4.3-11.1)
[2018-10-03] MEDS: *HR* Enoxaparin 40 MG/0.4 ML SYRINGE SQ SCH (05:07)
[2018-10-03 05:11] LABS: Calcium 10.2 mg/dL (8.6-10.3); Potassium 3.5 mEq/L (3.5-5.1)
[2018-10-03 05:34] LABS: ABG Base Excess -1 mEq/L (-2 to 3); ABG HCO3 24 mEq/L (21-27); ABG Oxygen Saturation 98 % (95-98); ABG PCO2 40 mmHg (35-45); ABG PH 7.38 pH Units (7.32-7.45); ABG PO2 102 mmHg (85-104); ABG TCO2 25 mEq/L (20-26); Blood Gas Modality AF; Blood Gas PEEP 5 cm H2O; Blood Gas VT 450 cc
[2018-10-03] MEDS: Piperacillin/Tazobactam 3.375 GM in 0.9 % Sodium Chloride Mini Bag 100 ML IVPB SCH ×3 (05:44→22:16)
[2018-10-03] MEDS ORDERED: *HR* Metoprolol 5 MG/5 ML VIAL IVP PRN (06:19)
--- NOTE | 2018-10-03 06:37 | Pulmonology Progress Note ---
<Pierre Rincon S - Last Filed: 10/03/18 09:06> Date of Encounter: 10/03/18 Time of Encounter: 09:00 Assessment and Plan (1) Septic shock Current Visit: Yes Status: Acute Pt consulted to critical care on 10/01 for septic shock by Dr. Chavarria - etiology was unknown at the time of consult, likely secondary to PNA - criteria for septic shock have since resolved Meeting SIRS criteria for 2/4: WBC>12, tacycardia Did require intubation and failed CPAP trial on 10/02, 10/03 Blood cx 10/01 ngtd Urine cx from 10/01 negative Sputum preliminary (+) for many WBC CT chest from admission - 3.5 cm mass in the right lower lobe surrounded by consolidated lung. This likely represents primary pulmonary malignancy - Multiple tiny nodules scattered throughout the right upper lobe and left lung - skeletal metastatic disease including pathologic left rib fractures and pathologic fracture of the right lesser trochanter - bilateral adrenal masses which are almost certainly metastatic - indeterminate liver lesions Plan: - continue IV abx: on vancomycin and zosyn day 3 - acetaminophen prn fever - vent bundle in place - restriant order placed - versed and fentanyl for pain and sedation - final blood cx pending - levophed to keep MAP>65, has since been weaned - heme-onc consulted - IR consulted to potentially drain right last PT/INR from 10/01 was 1.0 all studies have been placed for fluid studies to define by light's criteria gram stain pending if fluid can be drained (2) Hyponatremia Current Visit: Yes Status: Acute On admission sodium 111, has since improved to 130 - was started on 3% NS, has since been held Plan: - continue daily sodium checks from now - seizure precautions in place, HOB elevation - nephrology consulted, appreciate recommendations fluid restriction 1.5 L per day salt tabs added to diet (3) Lung mass Current Visit: Yes Status: Acute CT chest on admission showing: - 3.5 cm mass in the right lower lobe surrounded by consolidated lung. This likely represents primary pulmonary malignancy. - There is right hilar and mediastinal adenopathy, skeletal metastatic disease including pathologic left rib fractures and pathologic fracture of the right lesser trochanter, and bilateral adrenal masses which are almost certainly metastatic. There are indeterminate liver lesions which are likely metastatic as well. - There is a large right pleural effusion, with atelectasis of the right lower and right middle lobes. - There is trace left pleural effusion. - Tiny nodules scattered throughout both lungs may represent granulomas or metastases Bronchoscopy did show extrinisc compression RLL, 50% airway occlusion Patient is not following with oncology at this time, this is a new diagnosis. Have consulted heme-onc who feel a hospice/palliative path would be best. Will require tissue diagnosis/cytology. (4) ETOH abuse Current Visit: Yes Status: Acute CIWA protocol. (5) Acute respiratory failure Current Visit: Yes Status: Acute See above. Qualifiers: Respiratory failure complication: unspecified whether with hypoxia or hypercapnia Qualified Code(s): J96.00 - Acute respiratory failure, unspecified whether with hypoxia or hypercapnia (6) Pneumonia Current Visit: Yes Status: Acute See plan as above. Qualifiers: Pneumonia type: due to unspecified organism Laterality: unspecified laterality Lung location: unspecified part of lung Qualified Code(s): J18.9 - Pneumonia, unspecified organism (7) Acute metabolic encephalopathy Current Visit: Yes Status: Acute Likely secondary to hyponatremia vs infxn. (8) Atrial fibrillation with RVR Current Visit: Yes Status: Acute Pt had episode of A fib with RVR overnight. EKG showed a HR of 138 bpm. Unresponsive to lopressor. Cardizem drip started. Subjective Principal diagnosis: Septic shock Interval history: Pt seen at bedside. Failed CPAP trial today. Overnight events include a fib with RVR. Objective PUL Vital signs: Last Vital Signs Temp 98.7 F 10/03/18 04:41 Pulse 138 10/03/18 06:00 Resp 18 10/03/18 06:00 BP 98/49 10/03/18 06:00 Pulse Ox 98 10/03/18 06:00 Ventilator Settings Ventilator Settings: Ventilator Settings, Last 8 Hours Ventilator Tidal Volume 450 Setting Ventilator Tidal Volume 450 Setting Ventilator Tidal Volume 450 Setting Ventilator Tidal Volume 450 Setting Ventilator Tidal Volume 450 Setting Ventilator Tidal Volume 450 Setting Ventilator Tidal Volume 450 Setting Ventilator Tidal Volume 450 Setting Ventilator Tidal Volume 450 Setting Ventilator Tidal Volume 450 Setting Ventilator Tidal Volume 450 Setting Ventilator Tidal Volume 450 Setting Ventilator Tidal Volume 450 Setting Ventilator Respiratory Rate 18 Setting Ventilator Respiratory Rate 18 Setting Ventilator Respiratory Rate 18 Setting Ventilator Respiratory Rate 18 Setting Ventilator Respiratory Rate 18 Setting Ventilator Respiratory Rate 18 Setting Ventilator Respiratory Rate 18 Setting Ventilator Respiratory Rate 18 Setting Ventilator Respiratory Rate 18 Setting Ventilator Respiratory Rate 18 Setting Ventilator Respiratory Rate 18 Setting Ventilator Respiratory Rate 18 Setting Ventilator Respiratory Rate 18 Setting Actual Respiratory Rate 18 Actual Respiratory Rate 18 Actual Respiratory Rate 18 Actual Respiratory Rate 18 Positive End Expiratory 5 Pressure Positive End Expiratory 5 Pressure Positive End Expiratory 5 Pressure Positive End Expiratory 5 Pressure Positive End Expiratory 5 Pressure Positive End Expiratory 5 Pressure Positive End Expiratory 5 Pressure Positive End Expiratory 5 Pressure Positive End Expiratory 5 Pressure Positive End Expiratory 5 Pressure Positive End Expiratory 5 Pressure Positive End Expiratory 5 Pressure Positive End Expiratory 5 Pressure Peak Inspiratory Airway 30 Pressure Peak Inspiratory Airway 41 Pressure Peak Inspiratory Airway 39 Pressure Peak Inspiratory Airway 43 Pressure Results - Laboratory Findings CBC and BMP: 10/03/18 04:20 10/03/18 04:20 ABG ABG pH 7.38 pH Units (7.32-7.45) 10/03/18 05:31 ABG pCO2 40 mmHg (35-45) 10/03/18 05:31 ABG pO2 102 mmHg (85-104) 10/03/18 05:31 ABG O2 Saturation 98 % (95-98) 10/03/18 05:31 PT/INR, D-dimer PT 11.4 Seconds (9.4-12.1) 10/01/18 03:35 Abnormal lab findings: Abnormal lab results WBC 12.8 K/mcL (4.3-11.1) H 10/03/18 04:20 RBC 2.73 M/mcL (3.82-4.97) L 10/03/18 04:20 Hgb 8.7 g/dL (11.5-15.4) L 10/03/18 04:20 Hct 25.8 % (35.3-44.9) L 10/03/18 04:20 MPV 9.1 fL (9.4-12.4) L 10/03/18 04:20 10.8 K/mcL (1.6-8.9) H 10/03/18 04:20 0.5 K/mcL (0.6-4.6) L 10/03/18 04:20 1.5 K/mcL (0.0-1.3) H 10/01/18 03:00 ABG pH 7.46 pH Units (7.32-7.45) H 10/02/18 04:47 ABG pCO2 30 mmHg (35-45) L 10/02/18 04:47 ABG pO2 73 mmHg (85-104) L 10/02/18 04:47 ABG HCO3 28 mEq/L (21-27) H 10/01/18 10:32 ABG Total CO2 29 mEq/L (20-26) H 10/01/18 11:55 ABG O2 Saturation 100 % (95-98) H 10/01/18 16:19 ABG Base Excess -8 mEq/L (-2 to 3) L 10/01/18 11:55 Sodium 130 mEq/L (136-145) L 10/03/18 04:20 Chloride 97 mEq/L (98-107) L 10/03/18 04:20 Carbon Dioxide 22 mEq/L (23-29) L 10/02/18 03:40 BUN 7 mg/dL (8-23) L 09/30/18 04:07 0.42 mg/dL (0.60-1.20) L 09/30/18 04:07 Est GFR ( Amer) 56 (> 60) L 10/03/18 04:20 Est GFR (Non-Af Amer) 47 (> 60) L 10/03/18 04:20 Glucose 120 mg/dL (70-105) H 10/01/18 08:00 POC Glucose 108 mg/dL (70-99) H 09/29/18 17:38 259 mOsm/kg (280-300) L 09/30/18 18:02 273 (280-300) L 10/03/18 04:20 Venous Ioniz Calcium 0.94 mmol/L (1.15-1.35) L 10/01/18 09:50 Phosphorus 4.6 mg/dL (2.7-4.5) H 10/01/18 03:35 Magnesium 1.3 mg/dL (1.6-2.6) L 09/30/18 04:07 AST 55 Units/L (13-39) H 10/01/18 03:35 258 Units/L (34-104) H 10/01/18 03:35 0.10 ng/mL (< 0.04) H* 10/02/18 03:40 B-Natriuretic Peptide 192 pg/mL (Less than 100) H 09/29/18 13:49 6.1 g/dL (6.4-8.9) L 10/01/18 03:35 3.1 g/dL (3.5-5.7) L 10/01/18 03:35 1.0 (1.1-2.2) L 10/01/18 03:35 30 mg/dL (Neg-Trace) H 09/29/18 11:40 15 mg/dL (Negative) H 09/29/18 11:40 Small (Negative) H 09/29/18 11:40 5-15 per hpf (0-3) H 09/29/18 11:40 Ur Squamous Epith Cells Many per lpf (None-Few) H 09/29/18 11:40 Hyaline Casts Moderate per lpf (None-Few) H 09/29/18 11:40 Fluid Appearance Cloudy (Clear) A 10/02/18 14:38 Fluid Appearance Slightly Hazy (Clear) A 10/02/18 14:38 Vancomycin Trough 33 mcg/mL (5-10) H 10/02/18 23:05 - Microbiology Findings Microbiology Findings: Microbiology, Last 48 Hours 10/02/18 13:27 Respiratory Culture - Preliminary Right Lower Lobe Lung 10/02/18 13:27 Respiratory Culture - Preliminary Right Lower Lobe Lung 10/01/18 09:15 Urine Culture - Final Urine,[place] No growth. 10/01/18 13:47 Sputum Culture - Preliminary Sputum 10/01/18 09:35 Blood Culture - Preliminary Peripheral Venipuncture Culture is incubating and being continuously monitored for growth. Final report to follow. 10/01/18 09:27 Blood Culture - Preliminary Peripheral Venipuncture Culture is incubating and being continuously monitored for growth. Final report to follow. - Clinical Findings Intake & Output: Intake & Output 10/02/18 10/02/18 10/03/18 15:59 23:59 07:59 Intake Total 487 / 2526.4 996.2 / 2526.4 308.1 / 308.1 Output Total 225 / 875 400 / 875 350 / 350 Balance 262 / 1651.4 596.2 / 1651.4 -41.9 / -41.9 Weight 105.8 kg Consult Discharge Plan - Plan Referrals: Giovani Wills MD [Primary Care Provider] - <Rich Hernandez W - Last Filed: 10/03/18 16:42> Date of Encounter: 10/03/18 Objective PUL Vital signs: Last Vital Signs Temp 97.3 F L 10/03/18 16:14 Pulse 86 10/03/18 14:00 Resp 18 10/03/18 14:00 BP 111/58 10/03/18 14:00 Pulse Ox 99 10/03/18 14:00 Ventilator Settings Ventilator Settings: Ventilator Settings, Last 8 Hours Ventilator Tidal Volume 450 Setting Ventilator Tidal Volume 450 Setting Ventilator Tidal Volume 450 Setting Ventilator Tidal Volume 450 Setting Ventilator Tidal Volume 450 Setting Ventilator Tidal Volume 450 Setting Ventilator Tidal Volume 450 Setting Ventilator Tidal Volume 450 Setting Ventilator Tidal Volume 450 Setting Ventilator Respiratory Rate 18 Setting Ventilator Respiratory Rate 18 Setting Ventilator Respiratory Rate 18 Setting Ventilator Respiratory Rate 18 Setting Ventilator Respiratory Rate 18 Setting Ventilator Respiratory Rate 18 Setting Ventilator Respiratory Rate 18 Setting Ventilator Respiratory Rate 18 Setting Ventilator Respiratory Rate 18 Setting Actual Respiratory Rate 18 Actual Respiratory Rate 18 Actual Respiratory Rate 18 Actual Respiratory Rate 18 Actual Respiratory Rate 18 Actual Respiratory Rate 18 Positive End Expiratory 5 Pressure Positive End Expiratory 5 Pressure Positive End Expiratory 5 Pressure Positive End Expiratory 5 Pressure Positive End Expiratory 5 Pressure Positive End Expiratory 5 Pressure Positive End Expiratory 5 Pressure Positive End Expiratory 5 Pressure Positive End Expiratory 5 Pressure Peak Inspiratory Airway 32 Pressure Peak Inspiratory Airway 32 Pressure Peak Inspiratory Airway 35 Pressure Peak Inspiratory Airway 35 Pressure Peak Inspiratory Airway 35 Pressure Peak Inspiratory Airway 37 Pressure Results - Laboratory Findings CBC and BMP: 10/03/18 04:20 10/03/18 04:20 ABG ABG pH 7.38 pH Units (7.32-7.45) 10/03/18 05:31 ABG pCO2 40 mmHg (35-45) 10/03/18 05:31 ABG pO2 102 mmHg (85-104) 10/03/18 05:31 ABG O2 Saturation 98 % (95-98) 10/03/18 05:31 PT/INR, D-dimer PT 11.4 Seconds (9.4-12.1) 10/01/18 03:35 Abnormal lab findings: Abnormal lab results WBC 12.8 K/mcL (4.3-11.1) H 10/03/18 04:20 RBC 2.73 M/mcL (3.82-4.97) L 10/03/18 04:20 Hgb 8.7 g/dL (11.5-15.4) L 10/03/18 04:20 Hct 25.8 % (35.3-44.9) L 10/03/18 04:20 MPV 9.1 fL (9.4-12.4) L 10/03/18 04:20 10.8 K/mcL (1.6-8.9) H 10/03/18 04:20 0.5 K/mcL (0.6-4.6) L 10/03/18 04:20 1.5 K/mcL (0.0-1.3) H 10/01/18 03:00 ABG pH 7.46 pH Units (7.32-7.45) H 10/02/18 04:47 ABG pCO2 30 mmHg (35-45) L 10/02/18 04:47 ABG pO2 73 mmHg (85-104) L 10/02/18 04:47 ABG HCO3 28 mEq/L (21-27) H 10/01/18 10:32 ABG Total CO2 29 mEq/L (20-26) H 10/01/18 11:55 ABG O2 Saturation 100 % (95-98) H 10/01/18 16:19 ABG Base Excess -8 mEq/L (-2 to 3) L 10/01/18 11:55 Sodium 130 mEq/L (136-145) L 10/03/18 04:20 Chloride 97 mEq/L (98-107) L 10/03/18 04:20 Carbon Dioxide 22 mEq/L (23-29) L 10/02/18 03:40 BUN 7 mg/dL (8-23) L 09/30/18 04:07 0.42 mg/dL (0.60-1.20) L 09/30/18 04:07 Est GFR ( Amer) 56 (> 60) L 10/03/18 04:20 Est GFR (Non-Af Amer) 47 (> 60) L 10/03/18 04:20 Glucose 120 mg/dL (70-105) H 10/01/18 08:00 POC Glucose 108 mg/dL (70-99) H 09/29/18 17:38 259 mOsm/kg (280-300) L 09/30/18 18:02 273 (280-300) L 10/03/18 04:20 Venous Ioniz Calcium 0.94 mmol/L (1.15-1.35) L 10/01/18 09:50 Phosphorus 4.6 mg/dL (2.7-4.5) H 10/01/18 03:35 Magnesium 1.3 mg/dL (1.6-2.6) L 09/30/18 04:07 AST 55 Units/L (13-39) H 10/01/18 03:35 258 Units/L (34-104) H 10/01/18 03:35 0.10 ng/mL (< 0.04) H* 10/02/18 03:40 B-Natriuretic Peptide 192 pg/mL (Less than 100) H 09/29/18 13:49 6.1 g/dL (6.4-8.9) L 10/01/18 03:35 3.1 g/dL (3.5-5.7) L 10/01/18 03:35 1.0 (1.1-2.2) L 10/01/18 03:35 30 mg/dL (Neg-Trace) H 09/29/18 11:40 15 mg/dL (Negative) H 09/29/18 11:40 Small (Negative) H 09/29/18 11:40 5-15 per hpf (0-3) H 09/29/18 11:40 Ur Squamous Epith Cells Many per lpf (None-Few) H 09/29/18 11:40 Hyaline Casts Moderate per lpf (None-Few) H 09/29/18 11:40 Fluid Appearance Cloudy (Clear) A 10/02/18 14:38 Fluid Appearance Slightly Hazy (Clear) A 10/02/18 14:38 Vancomycin Trough 33 mcg/mL (5-10) H 10/02/18 23:05 - Microbiology Findings Microbiology Findings: Microbiology, Last 48 Hours 10/02/18 13:27 Respiratory Culture - Preliminary Right Lower Lobe Lung 10/02/18 13:27 Respiratory Culture - Preliminary Right Lower Lobe Lung 10/02/18 13:27 Fungal Culture - Preliminary Right Lower Lobe Lung Culture is incubating. 10/02/18 13:27 Fungal Culture - Preliminary Right Lower Lobe Lung Culture is incubating. 10/01/18 13:47 Sputum Culture - Preliminary Sputum 10/01/18 09:15 Urine Culture - Final Urine,[place] No growth. - Clinical Findings Intake & Output: Intake & Output 10/03/18 10/03/18 10/03/18 07:59 15:59 23:59 Intake Total 308.1 / 458.1 150 / 458.1 Output Total 350 / 750 200 / 750 200 / 750 Balance -41.9 / -291.9 -50 / -291.9 -200 / -291.9 Weight 105.8 kg - Attending Attestation I examined this patient and my medical decision-making was reviewed with the Resident Physician. I agree with the documented findings, disposition and treat ment plan as described except to the extent set forth below. We independently had [id number] contact with the patient I spent 33min of Critical Care time with this patient. It involved decision diamond ing of high complexity to assess, manipulate, and support vital organ system failure and/or to prevent further life threatening deterioration of the patient's condition. The time involved in the performance of separately reportable procedures was not counted toward critical care time. Patient seen and examined at bedside Labs, radiology, chart personally reviewed. Management was reviewed during multidisciplinary critical care rounds. [employer] WORK[employer]: Patient is sedated on vent she has encephalopathy which is likely secondary to metabolic derangements and infection we will continue to decrease sedation as able to tolerate for goal Booth around 2-3. Pulm: Acute hypoxic hypercapnic respiratory failure secondary to pneumonia complicated by COPD exacerbation and underlying what appears to be metastatic lung cancer complicated by compromise of the right lower lobe and likely malignant pleural effusion plan status post bronchoscopy and we will also perform thoracentesis today with interventional radiology to try to obtain more cytology to analyze for malignancy and also evaluate etiology of effusion. Acce ptable gas exchange on vent today she is not a candidate for liberation because of vent requirements however and underlying mental status changes Cards: Presented with shock and vasopressors are being weaned down and now off she has atrial fibrillation rate is currently controlled on diltiazem GI: GI prophylaxis given Nutrition: Renal: UOP Monitored, Cont to Trend sCr and monitor Electrolytes. ID: She is on broad-spectrum antibiotics for presumed pneumonia with planned to de-escalate Heme/Onc: Diffuse metastatic disease likely a small cell lung cancer Endo: Glucose Monitored Integ/MSK: Skin Care per routine ICU Nursing Protocol to prevent ulcers. Lines: All lines examined without evidence of infection : Dispo: Monitor in ICU for critical illness CODE: Unfortunately has an extremely poor prognosis advanced metastatic disease respiratory failure and critical illness-related care has been consulted and we will discuss with family regarding goals of care
[2018-10-03] MEDS ORDERED: *HR* Metoprolol 5 MG/5 ML VIAL IVP ONE ×2 (06:48)
[2018-10-03 06:50] LABS: Magnesium 1.9 mg/dL (1.6-2.6)
[2018-10-03] MEDS: Chlorhexidine Rinse 15 ML MOUTHWASH MM SCH ×2 (07:53→20:44)
[2018-10-03] MEDS: Pantoprazole 40 MG VIAL IVP SCH (07:53)
[2018-10-03] MEDS: PrednisoLONE Acetate 1% Opth 5 ML BOTTLE RIGHT EYE SCH ×3 (07:53→20:43)
--- NOTE | 2018-10-03 09:29 | Palliative - Consult Note ---
Date of Encounter: 10/03/18 Time of Encounter: 09:00 - Assessment and Plan (1) Goals of care, counseling/discussion Current Visit: Yes Status: Acute Assessment and plan: Oncology recommendations - Based on her comorbidities and current state, she would most likely not clinically benefit from any type of cancer treatment. Recommendation is supportive measures. Called [facility] at #[phone] & #[phone]. No answer at either number. Will continue to contact. Patient is FULL CODE. (2) Acute respiratory failure Current Visit: Yes Status: Acute Assessment and plan: Management per Pulmonology Qualifiers: Respiratory failure complication: unspecified whether with hypoxia or hypercapnia Qualified Code(s): J96.00 - Acute respiratory failure, unspecified whether with hypoxia or hypercapnia (3) Pneumonia Current Visit: Yes Status: Acute Qualifiers: Pneumonia type: due to unspecified organism Laterality: unspecified laterality Lung location: unspecified part of lung Qualified Code(s): J18.9 - Pneumonia, unspecified organism (4) Septic shock Current Visit: Yes Status: Acute (5) Metastatic lung cancer (metastasis from lung to other site) Current Visit: Yes Status: Acute Assessment and plan: Supportive management recommended. Will discuss goals with family in regards to transition to hospice care. Qualifiers: Laterality: right Qualified Code(s): C34.91 - Malignant neoplasm of unspecified part of right bronchus or lung (6) Palliative care encounter Current Visit: Yes Status: Acute (7) ETOH abuse Current Visit: Yes Status: Acute Palliative-CN HPI - Data of Consult Patient: new to practice Consult date: 10/03/18 Requesting Physician: Von Chavarria Primary Care Provider: Giovani Wills MD - Consult Narrative Palliative Care/Comfort Measures: Palliative care Reason for consult: Goals of care History of present illness: Ms. Marcelino is a 68 year old female admitted with septic shock. Patient is currently in the ICU intubated and mechanically ventilated. Upon admission to the hospital patient was seen to have probable metastatic lung cancer to bilateral adrenal glands, right hip, ribs, skull, liver metastases. Patient with poor overall performance status and Oncology feels that she would not clinically benefit from any type of cancer treatment. This palliative care consult is for goals of care discussion with the family. CC: Von Chavarria - Time Spent with Patient Time: Total time spent is greater than 50% in coordination of care (as documented) at patient's floor/unit and/or counseling patient: Past Med Surg Social Fam HX - Past Medical History Source: old records reviewed, nursing notes reviewed Medical history: hypertension, other Additional medical history: alcoholism Psychiatric history: no psych history - Social History Smoking Status: Former smoker Smokeless Tobacco Status: No Alcohol use: heavy, recent Drug use: none Medications and Allergies Aspirin [Lo-Dose Aspirin EC] 81 mg PO DAILY 06/28/18 [History] Atenolol [Tenormin] 50 mg PO DAILY 06/28/18 [History] Cholecalciferol (Vitamin D3) [Vitamin D] 2,000 unit PO DAILY 06/28/18 [History] Loratadine [Allergy Relief] 10 mg PO DAILY PRN 06/28/18 [History] Losartan Potassium [Cozaar] 50 mg PO DAILY 06/28/18 [History] Mv-Mn/FA/Vit K/Lycop/Lut/Coq10 [Daily Multivitamin Capsule] 1 each PO DAILY 06/28/18 [History] Prednisolone Acetate/Pf [Prednisolone Acet 1% Eye Drop] 1 drop RIGHT EYE TID 09/29/18 [History] Sodium Bicarbonate 325 mg PO BID 09/29/18 [History] Allergy/AdvReac Type Severity Reaction Status Date / Time No Known Allergies Allergy Verified 06/28/18 11:40 ROS unobtainable: due to endotracheal tube - Constitutional Constitutional ROS PAL: fatigue - Cardiovascular Cardiovascular ROS: dyspnea on exertion - Respiratory Respiratory: dyspnea on exertion - Musculoskeletal Musculoskeletal ROS IM: muscle weakness Palliative Care-Exam - Constitutional Vitals: Temp Pulse Resp BP Pulse Ox 97.9 F 138 18 98/49 100 10/03/18 08:58 10/03/18 06:00 10/03/18 07:45 10/03/18 06:00 10/03/18 07:45 General appearance: Present: no acute distress - Head Head Exam: Present: atraumatic, normal inspection, normocephalic - Eye Eye exam: Present: PERRL - ENT ENT exam: Present: mucous membranes moist - Respiratory Respiratory exam: Present: decreased breath sounds Additional comments: Patient with ET tube and mechanical ventilation. Vent settings - FiO2 40%, TV 450, PEEP 5 - Expanded Respiratory Exam Location: decreased breath sounds: Left, Right, Lower - Cardiovascular Cardiovascular exam: Present: RRR, +S1, +S2 - Expanded Cardiovascular Exam Peripheral pulses: 1+: Femoral (L) PM, Femoral (R) PM, Posterior Tibialis (L), Posterior Tibialis (R), 2+: Carotid (L) PM, Carotid (R) PM, Radial (L), Radial (R), Dorsalis Pedis (L) PM, Dorsalis Pedis (R) PM - GI/Abdominal Exam GI/Abdominal exam: Present: normal bowel sounds additional comments: Patient with OG tube in place - Catheter Type: Urethral (Ste[place]) - Expanded Upper Extremities Exam Forearm wrist exam: Present: full ROM - Expanded Lower Extremities Exam Upper Leg exam: Present: full ROM Lower Leg exam: Present: full ROM - Neurological Exam Additional comments: Patient sedated and intubated. - Skin Skin exam: Present: pallor, warm Additional comments: Bilateral fingers cool Internal Medicine - CN: Reslt - Labs CBC & Chem 7: 10/03/18 04:20 10/03/18 04:20 Labs: Short CBC 10/03/18 Range/Units 04:20 WBC 12.8 H (4.3-11.1) K/mcL Hgb 8.7 L (11.5-15.4) g/dL Hct 25.8 L (35.3-44.9) % Plt Count 157 (140-400) K/mcL Neutrophils # 10.8 H (1.6-8.9) K/mcL BMP 10/03/18 04:20 Sodium 130 L Potassium 3.5 Chloride 97 L Carbon Dioxide 24 BUN 22 Creatinine 1.16 Glucose 91 Calcium 10.2 - ABG Interpretation ABG results: ABG ABG pH 7.38 pH Units (7.32-7.45) 10/03/18 05:31 ABG pCO2 40 mmHg (35-45) 10/03/18 05:31 ABG pO2 102 mmHg (85-104) 10/03/18 05:31 ABG O2 Saturation 98 % (95-98) 10/03/18 05:31 PT/INR, D-dimer PT 11.4 Seconds (9.4-12.1) 10/01/18 03:35 Consult Discharge Plan - Plan Referrals: Giovani Wills MD [Primary Care Provider] - Palliative Quality Palliative Quality: Screen for Code Status: Yes, Screen for Goals of Care: Yes, Screen for Pain: Yes, Screen for Nausea/Vomitting: Yes Code Status: 09/29/18 16:07 Resuscitation Status: Active [RES] Routine Comment: Resuscitation Status: Full Code
--- NOTE | 2018-10-03 11:57 | IR Procedure Note ---
Date of procedure: 10/03/18 Consent Obtained: Verbal consent, Written consent Timeout: Correct patient and procedure verified, Correct site verified, Time out performed, Skin prep completed Local anesthetic: Lidocaine 1% Was there an executive assistant to general counsel present: Yes Special Collections Librarian: Quinten Jefferson Estimated blood loss (cc): 1 Complications: None; Tolerated procedure well Indications: Right pleural effusion Procedure Performed: US guided thoracentesis Site/Technique: US guided right thoracentesis performed Results/Findings (any specimens removed): Moderate right pleural effusion Post Procedure Treatment Plan: Continue ICU care Specimen: serous pleural fluid
--- NOTE | 2018-10-03 12:44 | Electrocardiograph Report ---
[facility] Test Date: 2018-10-03 Pat Name: Lilian Marcelino Department: 109 Room: 08 Gender: F [employer]: : 1950 Requested By: Alfredito Duffy Order Number: [id number] Reading MD: Preet Rosas Measurements Intervals [place] Rate: 138 P: NH: 0 QRS: 35 QRSD: 119 T: 19 QT: 314 QTc: 395 Interpretive Statements ATRIAL FIBRILLATION WITH RAPID VENTRICULAR RESPONSE RIGHT BUNDLE BRANCH BLOCK Electronically Signed On 10-03-2018 12:42:39 EDT by Preet Rosas
--- NOTE | 2018-10-03 13:11 | Event Note ---
Date of Encounter: 10/03/18 Time of Encounter: 11:45 Conducted meeting with Pat and daughter. Updated on POC regarding Thoracentesis and A-Fib overnight. Discussed Oncology, Dr. Pereira recommendations of patient not having any meaningful benefit from chemotherapy. Discussed palliative care and reasons for consult. Discussed patients metastatic cancer and need for mechanical ventilation. Patient failed CPAP trial today. Discussed levels of DNR and explained each. desires to change to DNRCC - A. Pat emotional regarding prognosis and discussed options for hospice care. Immediate goal is to change code status to DNRCC - A. Pat and daughter need sometime to accept diagnosis and are hopeful that patient could possibly be extubated. They would like to continue efforts for extubation before considering other options. I explained that we would continue to have daily meetings and provide updates and discussions regarding progress. I explained that if patient is unable to successfully be extubated and breath on her own that a tracheostomy would be an option but given patients overall prognosis that it is not likely to provide meaningful recover. Pat verbalized that a tracheostomy tube would not be desired. Goal is to continue to extubate patient and if she fails to be extubated then discuss compassionate extubation and transition to comfort care.
[2018-10-03] MEDS: Norepinephrine 4 MG in D5% in Water 250 ML IVC SCH (14:17)
[2018-10-03 17:05] LABS: Lactate Dehydrogenase 1368 Units/L (140-271); Total Protein 5.7 g/dL (6.4-8.9)
[2018-10-03 17:41] LABS: RBC,Pleural Fluid < 0.002 M/mcL
[2018-10-03] MEDS: Thiamine (B-1) 100 MG, Folic Acid 1 MG, MVI, adult with vitamin K 10 ML in 0.9 % Sodi... IVPB SCH (17:51)
[2018-10-03 18:09] LABS: Total Protein,Pleural Fluid 3.5 g/dL
[2018-10-03 18:39] LABS: Appearance of Pleural Fl Clear (Clear); Basophils,Pleural Fluid 0 %; Eosinophils,Pleural Fluid 0 %
--- NOTE | 2018-10-03 23:27 | Nephrology Progress Note ---
Date of Encounter: 10/03/18 Time of Encounter: 12:00 - Assessment and Plan (1) Acute respiratory failure Current Visit: Yes Status: Acute Vent management per critical care Qualifiers: Respiratory failure complication: unspecified whether with hypoxia or hypercapnia Qualified Code(s): J96.00 - Acute respiratory failure, unspecified whether with hypoxia or hypercapnia (2) Hyponatremia Current Visit: Yes Status: Acute Sodium noted at 130 improving still, off hypertonic saline Continue fluid restriction 1.5 liter a day if possible Continue salt tabs Uric acid noted low with TSH WNL and elevated cortisol level noted (3) Altered mental status Current Visit: Yes Status: Acute Qualifiers: Altered mental status type: unspecified Qualified Code(s): R41.82 - Altered mental status, unspecified (4) Lung mass Current Visit: Yes Status: Acute (5) ETOH abuse Current Visit: Yes Status: Acute (6) JOAN (acute kidney injury) Current Visit: Yes Status: Acute SCr elevated at 1.16, GFR 47 from baseline of 0.33-0.4, GFR >60 UOP noted at 325/850cc output in the past 24hrs Subjective Principal diagnosis: Septic shock Interval history: Pt seen and examined remains intubated and sedated with no family at bedside. Off pressor support. Failed cPAP trial Objective - Vital Signs Vital signs: Vital Signs Temp Pulse Resp BP Pulse Ox 10/03/18 23:00 88 18 86/67 100 10/03/18 22:23 18 95/45 100 10/03/18 22:00 95 18 95/45 100 10/03/18 21:00 81 18 104/61 100 10/03/18 20:23 18 93/60 100 10/03/18 20:00 82 18 93/60 100 10/03/18 19:00 82 18 106/61 100 10/03/18 18:00 98.3 F 92 18 103/61 100 10/03/18 17:51 18 103/61 100 10/03/18 17:00 95 18 100/51 100 10/03/18 16:14 97.3 F L 10/03/18 16:00 97.3 F L 91 18 108/60 100 10/03/18 15:00 102 18 123/63 99 10/03/18 14:00 97.8 F 86 18 102/61 99 10/03/18 13:15 18 102/61 99 10/03/18 13:00 112 18 102/61 100 10/03/18 12:00 97.8 F 103 18 102/61 100 10/03/18 11:52 97.8 F 10/03/18 11:06 18 98 10/03/18 11:00 107 18 86/54 98 10/03/18 10:00 97.9 F 120 18 116/64 91 10/03/18 09:47 18 102/62 100 10/03/18 09:20 97.9 F 120 18 116/64 91 10/03/18 09:00 114 18 105/66 99 10/03/18 08:58 97.9 F 10/03/18 08:00 97.9 F 120 18 116/64 91 10/03/18 07:45 18 100 10/03/18 07:00 118 18 110/76 98 10/03/18 06:00 138 18 98/49 98 10/03/18 05:53 18 141/74 95 10/03/18 05:00 75 18 109/57 100 10/03/18 04:41 98.7 F 10/03/18 04:27 87 10/03/18 04:00 81 18 119/65 97 10/03/18 03:32 18 139/112 96 10/03/18 03:00 96 18 126/77 99 10/03/18 02:00 70 18 125/75 99 10/03/18 01:14 18 119/67 99 10/03/18 01:00 74 18 125/56 98 10/03/18 00:36 98.8 F 10/03/18 00:00 69 18 110/62 98 10/02/18 23:45 18 116/68 93 Intake and Output 10/03/18 10/03/18 10/03/18 07:59 15:59 23:59 Intake Total 308.1 / 608.1 200 / 608.1 100 / 608.1 Output Total 350 / 910 200 / 910 360 / 910 Balance -41.9 / -301.9 0 / -301.9 -260 / -301.9 Intake: IV Fluids 308.1 / 608.1 200 / 608.1 100 / 608.1 Cardizem 50 MG In 0.9 % Sodium 100 / 100 Chloride 40 ML @ 5 MG/HR 5 mls/ hr IVC .Q10H [facility] Rx#:[id number] FentaNYL (PF) 1,000 MCG In 0.9 100 / 100 % Sodium Chloride 80 ML @ 50 MCG/HR 5 mls/hr IVC CONT [facility] Rx #:[id number] Versed 50 MG In 0.9 % Sodium 108.1 / 108.1 Chloride 90 ML @ 2 MG/HR 4 mls/ hr IVC CONT [facility] Rx#:[id number] Zosyn 3.375 GM In 0.9 % Sodium 100 / 300 100 / 300 100 / 300 Chloride (Mini-Bag +) 100 ML @ 25 mls/hr IVPB Q8H [facility] Rx#: [id number] Output: Catheter 250 / 650 150 / 650 250 / 650 Gastric Drainage 100 / 260 50 / 260 110 / 260 Other: Weight 105.8 kg Blood Glucose* 90 78 76 Patient Weight 10/03/18 23:59 Weight 105.8 kg - Lab 10/03/18 04:20 10/03/18 04:20 Consult Discharge Plan - Plan Referrals: Giovani Wills MD [Primary Care Provider] -
[2018-10-04] MEDS: Artificial Tears SOLN 15 ML BOTTLE BOTH EYES SCH ×5 (04:49→19:47)
[2018-10-04 05:00] LABS: ABG Base Excess -3 mEq/L (-2 to 3); ABG HCO3 21 mEq/L (21-27); ABG Oxygen Saturation 96 % (95-98); ABG PCO2 35 mmHg (35-45); ABG PH 7.39 pH Units (7.32-7.45); ABG PO2 81 mmHg (85-104); ABG TCO2 22 mEq/L (20-26); Blood Gas Modality AF; Blood Gas PEEP 5 cm H2O; Blood Gas VT 450 cc
[2018-10-04 05:35] LABS: Basophils % 0.2 %; Eosinophils # 0.1 K/mcL (0.0-0.6); Hematocrit 27.4 % (35.3-44.9); Hemoglobin 9.3 g/dL (11.5-15.4); Immature Granulocytes % 1.5 % (0-4); Lymphocytes # 0.5 K/mcL (0.6-4.6); Lymphocytes % 4.3 %; Mean Corpuscular HGB Conc 33.9 g/dL (31.6-35.5); Mean Corpuscular Volume 94.2 fL (83.0-100.0); Mean Platelet Volume 9.1 fL (9.4-12.4); Monocytes # 1.1 K/mcL (0.0-1.3); Monocytes % 9.1 %; Neutrophils # 10.6 K/mcL (1.6-8.9); Platelet Count 183 K/mcL (140-400); Red Blood Count 2.91 M/mcL (3.82-4.97); Red Cell Distribution Width 14.1 % (11.5-14.5); Segmented Neutrophils % 83.9 %; White Blood Count 12.6 K/mcL (4.3-11.1)
[2018-10-04 05:55] LABS: BUN/Creatinine Ratio 23 (6-26); Blood Urea Nitrogen 21 mg/dL (8-23); Calcium 10.8 mg/dL (8.6-10.3); Carbon Dioxide 21 mEq/L (23-29); Chloride 99 mEq/L (98-107); Glucose 97 mg/dL (70-105); Osmolality,Calculated 281 (280-300); Potassium 3.3 mEq/L (3.5-5.1); Sodium 134 mEq/L (136-145); eGFR For African Americans > 60 (> 60); eGFR For Non-African Americans > 60 (> 60)
[2018-10-04] MEDS: Piperacillin/Tazobactam 3.375 GM in 0.9 % Sodium Chloride Mini Bag 100 ML IVPB SCH ×2 (06:13→14:43)
[2018-10-04] MEDS: *HR* Enoxaparin 40 MG/0.4 ML SYRINGE SQ SCH (06:16)
--- NOTE | 2018-10-04 06:35 | Pulmonology Progress Note ---
<Pierre Rincon S - Last Filed: 10/04/18 10:52> Date of Encounter: 10/04/18 Time of Encounter: 09:10 Assessment and Plan (1) Septic shock Current Visit: Yes Status: Acute Pt consulted to critical care on 10/01 for septic shock by Dr. Chavarria - etiology was unknown at the time of consult, likely secondary to PNA - criteria for septic shock have since resolved Meeting SIRS criteria for 2/: WBC>12, tacycardia Did require intubation and failed CPAP trial on 10/02, 10/03, 10/04 Blood cx 10/01 ngtd Urine cx from 10/01 negative Sputum preliminary (+) for many WBC preliminary CT chest from admission - 3.5 cm mass in the right lower lobe surrounded by consolidated lung. This likely represents primary pulmonary malignancy - Multiple tiny nodules scattered throughout the right upper lobe and left lung - skeletal metastatic disease including pathologic left rib fractures and pathologic fracture of the right lesser trochanter - bilateral adrenal masses which are almost certainly metastatic - indeterminate liver lesions Thoracentesis at bedside 10/03 showing exudative pleural fluid by Light's criter ia with lymphocyte predominance, likely malignant pleural effusion Plan: - continue IV abx: on zosyn day 4 discontinue vancomycin 10/04 - acetaminophen prn fever - vent bundle in place - restriant order placed - versed and fentanyl for pain and sedation - final blood cx pending - levophed to keep MAP>65, has since been weaned - heme-onc consulted, recommending hospice - pallaitive care consulted family to compassionately extubate versus attempt to continue to wean from ventilator family meeting set for thursday 10/05 (2) Hyponatremia Current Visit: Yes Status: Acute On admission sodium 111, has since improved to 134 - was started on 3% NS, has since been held Plan: - continue daily sodium checks from now - seizure precautions in place, HOB elevation - nephrology consulted, appreciate recommendations fluid restriction 1.5 L per day salt tabs added to diet nephrology signed off 10/04 (3) Lung mass Current Visit: Yes Status: Acute CT chest on admission showing: - 3.5 cm mass in the right lower lobe surrounded by consolidated lung. This likely represents primary pulmonary malignancy. - There is right hilar and mediastinal adenopathy, skeletal metastatic disease including pathologic left rib fractures and pathologic fracture of the right lesser trochanter, and bilateral adrenal masses which are almost certainly metastatic. There are indeterminate liver lesions which are likely metastatic as well. - There is a large right pleural effusion, with atelectasis of the right lower and right middle lobes. - There is trace left pleural effusion. - Tiny nodules scattered throughout both lungs may represent granulomas or metastases Bronchoscopy did show extrinisc compression RLL, 50% airway occlusion Patient is not following with oncology at this time, this is a new diagnosis. Have consulted heme-onc who feel a hospice/palliative path would be best. Will require tissue diagnosis/cytology. (4) ETOH abuse Current Visit: Yes Status: Acute CIWA protocol. (5) Acute respiratory failure Current Visit: Yes Status: Acute See above. Qualifiers: Respiratory failure complication: unspecified whether with hypoxia or hypercapnia Qualified Code(s): J96.00 - Acute respiratory failure, unspecified whether with hypoxia or hypercapnia (6) Pneumonia Current Visit: Yes Status: Acute See plan as above. Qualifiers: Pneumonia type: due to unspecified organism Laterality: unspecified laterality Lung location: unspecified part of lung Qualified Code(s): J18.9 - Pneumonia, unspecified organism (7) Acute metabolic encephalopathy Current Visit: Yes Status: Acute Likely secondary to hyponatremia vs infxn. (8) Atrial fibrillation with RVR Current Visit: Yes Status: Acute Pt had episode of A fib with RVR overnight. EKG showed a HR of 138 bpm. Unresponsive to lopressor. Cardizem drip started 10/03. Subjective Principal diagnosis: Septic shock Interval history: Pt seen at bedside. Failed CPAP trial today. No overnight events. Objective PUL Vital signs: Last Vital Signs Temp 97.4 F L 10/04/18 03:40 Pulse 98 10/04/18 06:00 Resp 18 10/04/18 06:00 BP 116/55 10/04/18 06:00 Pulse Ox 100 10/04/18 06:00 General appearance: lethargic, asleep Eyes: nonicteric ENT: oropharynx dry Effort: mildly labored Auscultation: bilateral: diminished breath sounds, other (coarse breath sounds have improved) Cardiovascular: other (tacycardic) Gastrointestinal: soft, non-tender, other (obese) Integumentary: normal Extremities: no clubbing, pink and warm, pulses normal, edema (2+ pitting edema) Musculoskeletal: no deformities unable to assess due to mental status other (unable to assess due to mental status) Ventilator Settings Ventilator Settings: Ventilator Settings, Last 8 Hours Ventilator Tidal Volume 450 Setting Ventilator Tidal Volume 450 Setting Ventilator Tidal Volume 450 Setting Ventilator Tidal Volume 450 Setting Ventilator Tidal Volume 450 Setting Ventilator Tidal Volume 450 Setting Ventilator Tidal Volume 450 Setting Ventilator Tidal Volume 450 Setting Ventilator Tidal Volume 450 Setting Ventilator Tidal Volume 450 Setting Ventilator Tidal Volume 450 Setting Ventilator Tidal Volume 450 Setting Ventilator Tidal Volume 450 Setting Ventilator Respiratory Rate 18 Setting Ventilator Respiratory Rate 18 Setting Ventilator Respiratory Rate 18 Setting Ventilator Respiratory Rate 18 Setting Ventilator Respiratory Rate 18 Setting Ventilator Respiratory Rate 18 Setting Ventilator Respiratory Rate 18 Setting Ventilator Respiratory Rate 18 Setting Ventilator Respiratory Rate 18 Setting Ventilator Respiratory Rate 18 Setting Ventilator Respiratory Rate 18 Setting Ventilator Respiratory Rate 18 Setting Ventilator Respiratory Rate 18 Setting Actual Respiratory Rate 18 Actual Respiratory Rate 18 Actual Respiratory Rate 18 Actual Respiratory Rate 18 Actual Respiratory Rate 18 Actual Respiratory Rate 18 Actual Respiratory Rate 18 Actual Respiratory Rate 18 Actual Respiratory Rate 18 Actual Respiratory Rate 18 Actual Respiratory Rate 18 Actual Respiratory Rate 18 Positive End Expiratory 5 Pressure Positive End Expiratory 5 Pressure Positive End Expiratory 5 Pressure Positive End Expiratory 5 Pressure Positive End Expiratory 5 Pressure Positive End Expiratory 5 Pressure Positive End Expiratory 5 Pressure Positive End Expiratory 5 Pressure Positive End Expiratory 5 Pressure Positive End Expiratory 5 Pressure Positive End Expiratory 5 Pressure Positive End Expiratory 5 Pressure Positive End Expiratory 5 Pressure Peak Inspiratory Airway 28 Pressure Peak Inspiratory Airway 28 Pressure Peak Inspiratory Airway 28 Pressure Peak Inspiratory Airway 29 Pressure Peak Inspiratory Airway 32 Pressure Peak Inspiratory Airway 31 Pressure Peak Inspiratory Airway 32 Pressure Peak Inspiratory Airway 31 Pressure Peak Inspiratory Airway 33 Pressure Peak Inspiratory Airway 38 Pressure Peak Inspiratory Airway 34 Pressure Peak Inspiratory Airway 31 Pressure Results - Laboratory Findings CBC and BMP: 10/04/18 05:20 10/04/18 09:46 ABG ABG pH 7.39 pH Units (7.32-7.45) 10/04/18 04:57 ABG pCO2 35 mmHg (35-45) 10/04/18 04:57 ABG pO2 81 mmHg (85-104) L 10/04/18 04:57 ABG O2 Saturation 96 % (95-98) 10/04/18 04:57 PT/INR, D-dimer PT 11.4 Seconds (9.4-12.1) 10/01/18 03:35 Abnormal lab findings: Abnormal lab results WBC 12.6 K/mcL (4.3-11.1) H 10/04/18 05:20 RBC 2.91 M/mcL (3.82-4.97) L 10/04/18 05:20 Hgb 9.3 g/dL (11.5-15.4) L 10/04/18 05:20 Hct 27.4 % (35.3-44.9) L 10/04/18 05:20 MPV 9.1 fL (9.4-12.4) L 10/04/18 05:20 10.6 K/mcL (1.6-8.9) H 10/04/18 05:20 0.5 K/mcL (0.6-4.6) L 10/04/18 05:20 1.5 K/mcL (0.0-1.3) H 10/01/18 03:00 ABG pH 7.46 pH Units (7.32-7.45) H 10/02/18 04:47 ABG pCO2 30 mmHg (35-45) L 10/02/18 04:47 ABG pO2 81 mmHg (85-104) L 10/04/18 04:57 ABG HCO3 28 mEq/L (21-27) H 10/01/18 10:32 ABG Total CO2 29 mEq/L (20-26) H 10/01/18 11:55 ABG O2 Saturation 100 % (95-98) H 10/01/18 16:19 ABG Base Excess -3 mEq/L (-2 to 3) L 10/04/18 04:57 Sodium 134 mEq/L (136-145) L 10/04/18 05:20 Potassium 3.3 mEq/L (3.5-5.1) L 10/04/18 05:20 Chloride 97 mEq/L (98-107) L 10/03/18 04:20 Carbon Dioxide 21 mEq/L (23-29) L 10/04/18 05:20 BUN 7 mg/dL (8-23) L 09/30/18 04:07 0.42 mg/dL (0.60-1.20) L 09/30/18 04:07 Est GFR ( Amer) 56 (> 60) L 10/03/18 04:20 Est GFR (Non-Af Amer) 47 (> 60) L 10/03/18 04:20 Glucose 120 mg/dL (70-105) H 10/01/18 08:00 POC Glucose 108 mg/dL (70-99) H 09/29/18 17:38 259 mOsm/kg (280-300) L 09/30/18 18:02 273 (280-300) L 10/03/18 04:20 Calcium 10.8 mg/dL (8.6-10.3) H 10/04/18 05:20 Venous Ioniz Calcium 0.94 mmol/L (1.15-1.35) L 10/01/18 09:50 Phosphorus 4.6 mg/dL (2.7-4.5) H 10/01/18 03:35 Magnesium 1.3 mg/dL (1.6-2.6) L 09/30/18 04:07 AST 55 Units/L (13-39) H 10/01/18 03:35 258 Units/L (34-104) H 10/01/18 03:35 1368 Units/L (140-271) H 10/03/18 14:00 0.10 ng/mL (< 0.04) H* 10/02/18 03:40 B-Natriuretic Peptide 192 pg/mL (Less than 100) H 09/29/18 13:49 5.7 g/dL (6.4-8.9) L 10/03/18 14:00 3.1 g/dL (3.5-5.7) L 10/01/18 03:35 1.0 (1.1-2.2) L 10/01/18 03:35 30 mg/dL (Neg-Trace) H 09/29/18 11:40 15 mg/dL (Negative) H 09/29/18 11:40 Small (Negative) H 09/29/18 11:40 5-15 per hpf (0-3) H 09/29/18 11:40 Ur Squamous Epith Cells Many per lpf (None-Few) H 09/29/18 11:40 Hyaline Casts Moderate per lpf (None-Few) H 09/29/18 11:40 Fluid Appearance Cloudy (Clear) A 10/02/18 14:38 Fluid Appearance Slightly Hazy (Clear) A 10/02/18 14:38 Vancomycin Trough 33 mcg/mL (5-10) H 10/02/18 23:05 - Microbiology Findings Microbiology Findings: Microbiology, Last 48 Hours 10/03/18 11:40 Gram Stain - Final Pleural Fluid 10/02/18 13:27 Respiratory Culture - Preliminary Right Lower Lobe Lung 10/02/18 13:27 Respiratory Culture - Preliminary Right Lower Lobe Lung 10/02/18 13:27 Fungal Culture - Preliminary Right Lower Lobe Lung Culture is incubating. 10/02/18 13:27 Fungal Culture - Preliminary Right Lower Lobe Lung Culture is incubating. 10/01/18 13:47 Sputum Culture - Preliminary Sputum 10/01/18 09:15 Urine Culture - Final Urine,[place] No growth. - Clinical Findings Intake & Output: Intake & Output 10/03/18 10/03/18 10/04/18 15:59 23:59 07:59 Intake Total 200 / 1261.2 753.1 / 1261.2 106 / 106 Output Total 200 / 955 405 / 955 100 / 100 Balance 0 / 306.2 348.1 / 306.2 6 / 6 Weight 105.5 kg Consult Discharge Plan - Plan Referrals: Giovani Wills MD [Primary Care Provider] - <Rich Hernandez W - Last Filed: 10/04/18 13:25> Date of Encounter: 10/04/18 Objective PUL Vital signs: Last Vital Signs Temp 97.1 F L 10/04/18 13:07 Pulse 89 10/04/18 12:00 Resp 18 10/04/18 12:00 BP 118/81 10/04/18 12:00 Pulse Ox 100 10/04/18 12:00 Ventilator Settings Ventilator Settings: Ventilator Settings, Last 8 Hours Ventilator Tidal Volume 450 Setting Ventilator Tidal Volume 450 Setting Ventilator Tidal Volume 450 Setting Ventilator Tidal Volume 450 Setting Ventilator Tidal Volume 450 Setting Ventilator Tidal Volume 450 Setting Ventilator Tidal Volume 450 Setting Ventilator Tidal Volume 450 Setting Ventilator Respiratory Rate 18 Setting Ventilator Respiratory Rate 18 Setting Ventilator Respiratory Rate 18 Setting Ventilator Respiratory Rate 18 Setting Ventilator Respiratory Rate 18 Setting Ventilator Respiratory Rate 18 Setting Ventilator Respiratory Rate 18 Setting Ventilator Respiratory Rate 18 Setting Actual Respiratory Rate 18 Actual Respiratory Rate 18 Actual Respiratory Rate 18 Actual Respiratory Rate 18 Actual Respiratory Rate 18 Actual Respiratory Rate 25 Actual Respiratory Rate 18 Actual Respiratory Rate 18 Actual Respiratory Rate 18 Positive End Expiratory 5 Pressure Positive End Expiratory 5 Pressure Positive End Expiratory 5 Pressure Positive End Expiratory 5 Pressure Positive End Expiratory 5 Pressure Positive End Expiratory 5 Pressure Positive End Expiratory 5 Pressure Positive End Expiratory 5 Pressure Positive End Expiratory 5 Pressure Peak Inspiratory Airway 29 Pressure Peak Inspiratory Airway 28 Pressure Peak Inspiratory Airway 29 Pressure Peak Inspiratory Airway 28 Pressure Peak Inspiratory Airway 28 Pressure Peak Inspiratory Airway 15 Pressure Peak Inspiratory Airway 28 Pressure Peak Inspiratory Airway 28 Pressure Peak Inspiratory Airway 28 Pressure Results - Laboratory Findings CBC and BMP: 10/04/18 05:20 10/04/18 09:46 ABG ABG pH 7.39 pH Units (7.32-7.45) 10/04/18 04:57 ABG pCO2 35 mmHg (35-45) 10/04/18 04:57 ABG pO2 81 mmHg (85-104) L 10/04/18 04:57 ABG O2 Saturation 96 % (95-98) 10/04/18 04:57 PT/INR, D-dimer PT 11.4 Seconds (9.4-12.1) 10/01/18 03:35 Abnormal lab findings: Abnormal lab results WBC 12.6 K/mcL (4.3-11.1) H 10/04/18 05:20 RBC 2.91 M/mcL (3.82-4.97) L 10/04/18 05:20 Hgb 9.3 g/dL (11.5-15.4) L 10/04/18 05:20 Hct 27.4 % (35.3-44.9) L 10/04/18 05:20 MPV 9.1 fL (9.4-12.4) L 10/04/18 05:20 10.6 K/mcL (1.6-8.9) H 10/04/18 05:20 0.5 K/mcL (0.6-4.6) L 10/04/18 05:20 1.5 K/mcL (0.0-1.3) H 10/01/18 03:00 ABG pH 7.46 pH Units (7.32-7.45) H 10/02/18 04:47 ABG pCO2 30 mmHg (35-45) L 10/02/18 04:47 ABG pO2 81 mmHg (85-104) L 10/04/18 04:57 ABG HCO3 28 mEq/L (21-27) H 10/01/18 10:32 ABG Total CO2 29 mEq/L (20-26) H 10/01/18 11:55 ABG O2 Saturation 100 % (95-98) H 10/01/18 16:19 ABG Base Excess -3 mEq/L (-2 to 3) L 10/04/18 04:57 Sodium 134 mEq/L (136-145) L 10/04/18 09:46 Potassium 3.4 mEq/L (3.5-5.1) L 10/04/18 09:46 Chloride 97 mEq/L (98-107) L 10/03/18 04:20 Carbon Dioxide 21 mEq/L (23-29) L 10/04/18 05:20 BUN 7 mg/dL (8-23) L 09/30/18 04:07 0.42 mg/dL (0.60-1.20) L 09/30/18 04:07 Est GFR ( Amer) 56 (> 60) L 10/03/18 04:20 Est GFR (Non-Af Amer) 47 (> 60) L 10/03/18 04:20 Glucose 120 mg/dL (70-105) H 10/01/18 08:00 POC Glucose 108 mg/dL (70-99) H 09/29/18 17:38 259 mOsm/kg (280-300) L 09/30/18 18:02 273 (280-300) L 10/03/18 04:20 Calcium 10.6 mg/dL (8.6-10.3) H 10/04/18 09:46 Venous Ioniz Calcium 1.55 mmol/L (1.15-1.35) H 10/04/18 10:02 Phosphorus 4.6 mg/dL (2.7-4.5) H 10/01/18 03:35 Magnesium 1.3 mg/dL (1.6-2.6) L 09/30/18 04:07 AST 55 Units/L (13-39) H 10/01/18 03:35 258 Units/L (34-104) H 10/01/18 03:35 1368 Units/L (140-271) H 10/03/18 14:00 0.10 ng/mL (< 0.04) H* 10/02/18 03:40 B-Natriuretic Peptide 192 pg/mL (Less than 100) H 09/29/18 13:49 5.7 g/dL (6.4-8.9) L 10/03/18 14:00 3.1 g/dL (3.5-5.7) L 10/01/18 03:35 1.0 (1.1-2.2) L 10/01/18 03:35 30 mg/dL (Neg-Trace) H 09/29/18 11:40 15 mg/dL (Negative) H 09/29/18 11:40 Small (Negative) H 09/29/18 11:40 5-15 per hpf (0-3) H 09/29/18 11:40 Ur Squamous Epith Cells Many per lpf (None-Few) H 09/29/18 11:40 Hyaline Casts Moderate per lpf (None-Few) H 09/29/18 11:40 Fluid Appearance Cloudy (Clear) A 10/02/18 14:38 Fluid Appearance Slightly Hazy (Clear) A 10/02/18 14:38 Vancomycin Trough 33 mcg/mL (5-10) H 10/02/18 23:05 - Microbiology Findings Microbiology Findings: Microbiology, Last 48 Hours 10/02/18 13:27 Respiratory Culture - Final Right Lower Lobe Lung 10/02/18 13:27 Respiratory Culture - Preliminary Right Lower Lobe Lung 10/03/18 11:40 Gram Stain - Final Pleural Fluid 10/02/18 13:27 Fungal Culture - Preliminary Right Lower Lobe Lung Culture is incubating. 10/02/18 13:27 Fungal Culture - Preliminary Right Lower Lobe Lung Culture is incubating. 10/01/18 13:47 Sputum Culture - Preliminary Sputum - Clinical Findings Intake & Output: Intake & Output 10/03/18 10/04/18 10/04/18 23:59 07:59 15:59 Intake Total 753.1 / 1361.2 206 / 456 250 / 456 Output Total 405 / 955 100 / 450 350 / 450 Balance 348.1 / 406.2 106 / 6 -100 / 6 Weight 105.5 kg - Attending Attestation I examined this patient and my medical decision-making was reviewed with the Resident Physician. I agree with the documented findings, disposition and treatment plan as described except to the extent set forth below. We independently had [id number] contact with the patient I spent 31min of Critical Care time with this patient. It involved decision making of high complexity to assess, manipulate, and support vital organ system failure and/or to prevent further life threatening deterioration of the patient's condition. The time involved in the performance of separately reportable procedures was not counted toward critical care time. Patient seen and examined at bedside Labs, radiology, chart personally reviewed. Management was reviewed during multidisciplinary critical care rounds. CHIEF PILOT: Acute metabolic encephalopathy she remains unresponsive for the most part on the vent not able to follow commands right now Pulm: Acute hypoxic hypercapnic respiratory failure secondary to pneumonia complicated by COPD exacerbation underlying lung malignancy she also has a large likely metastatic pleural effusion status post aspiration yesterday pleural fluid consistent with malignancy pending cytology continue bronchodilators steroids and antibiotics she has acceptable gas exchange but with CPAP trial noted to have failed quickly and will need to have continued therapy Cards: A. fib with RVR on diltiazem GI: I prophylaxis given Nutrition: Can start trophic enteral nutrition per dietary recommendations Renal: Hyponatremia is improved this is likely secondary to SIADH for malignancy UOP Monitored, Cont to Trend sCr and monitor Electrolytes. ID: Suspected pneumonia on broad-spectrum antibiotics cultures pending but we will de-escalate today Heme/Onc: Suspected metastatic small cell lung cancer oncology was consulted overall prognosis extremely poor recommendations for hospice management continue DVT prophylaxis Endo: Glucose Monitored Integ/MSK: Skin Care per routine ICU Nursing Protocol to prevent ulcers. Lines: All lines examined without evidence of infection : Dispo: Monitor in ICU for critical illness CODE: DNA are family updated at bedside overall prognosis extremely poor palliative care has been consulted and plan for ongoing goals of care discussion possibly transition to hospice giving extent of metastatic cancer
[2018-10-04] MEDS: FentaNYL (PF) 1,000 MCG in 0.9 % Sodium Chloride 80 ML IVC SCH (07:29)
--- NOTE | 2018-10-04 07:42 | Event Note ---
Date of Encounter: 10/04/18 Time of Encounter: 07:41 - Nephrology Event Note Nephrology Chart Update I reviewed the handoff from my colleague Dr. Dean and given that this pt's JOAN and hyponatremia are both nicely improved, I will politely signoff at this time. Please feel free to call or page me with any renal questions. Thank you.
[2018-10-04] MEDS: PrednisoLONE Acetate 1% Opth 5 ML BOTTLE RIGHT EYE SCH ×3 (07:50→19:47)
[2018-10-04] MEDS: Pantoprazole 40 MG VIAL IVP SCH (07:56)
[2018-10-04] MEDS: Chlorhexidine Rinse 15 ML MOUTHWASH MM SCH ×2 (07:56→19:55)
[2018-10-04] MEDS ORDERED: Aminoglycoside Consult 1 EACH MC ONE (08:44)
[2018-10-04] MEDS ORDERED: Calcium Gluconate 1gm/50mL 1 GM/50 ML BAG IVPB PRN (09:19)
[2018-10-04] MEDS ORDERED: Potassium Phosphate 44 MEQ in 0.9 % Sodium Chloride 250 ML IVPB PRN (09:19)
[2018-10-04] MEDS: Albumin 25% 25gram/100mL 25 GM/100 ML IV.SOLN IVC SCH ×4 (09:50→13:52)
[2018-10-04 10:04] LABS: VBG Ionized Calcium 1.55 mmol/L (1.15-1.35)
[2018-10-04 10:28] LABS: BUN/Creatinine Ratio 24 (6-26); Blood Urea Nitrogen 22 mg/dL (8-23); Calcium 10.6 mg/dL (8.6-10.3); Carbon Dioxide 24 mEq/L (23-29); Chloride 99 mEq/L (98-107); Glucose 100 mg/dL (70-105); Magnesium 1.7 mg/dL (1.6-2.6); Osmolality,Calculated 281 (280-300); Phosphorous 3.1 mg/dL (2.7-4.5); Potassium 3.4 mEq/L (3.5-5.1); Sodium 134 mEq/L (136-145); eGFR For African Americans > 60 (> 60); eGFR For Non-African Americans > 60 (> 60)
--- NOTE | 2018-10-04 10:52 | Event Note ---
Date of Encounter: 10/04/18 Time of Encounter: 10:45 Patient resting quietly in bed. Patient failed CPAP trial this morning. No family present at this time. Plan is to continue current treatment plan until additional family set to arrive on Sunday and further discussion of plan moving forward.
[2018-10-04] MEDS: Norepinephrine 4 MG in D5% in Water 250 ML IVC SCH (14:24)
[2018-10-04] MEDS: Potassium Chloride 40 MEQ/200 ML BAG IVPB PRN ×2 (16:23→17:20)
[2018-10-04] MEDS: Thiamine (B-1) 100 MG, Folic Acid 1 MG, MVI, adult with vitamin K 10 ML in 0.9 % Sodi... IVPB SCH (17:17)
[2018-10-04 21:45] LABS: Magnesium 1.9 mg/dL (1.6-2.6); Potassium 3.5 mEq/L (3.5-5.1)
[2018-10-05] MEDS: Artificial Tears SOLN 15 ML BOTTLE BOTH EYES SCH ×6 (00:14→19:45)
[2018-10-05] MEDS: Piperacillin/Tazobactam 3.375 GM in 0.9 % Sodium Chloride Mini Bag 100 ML IVPB SCH ×3 (00:17→15:41)
[2018-10-05] MEDS: Potassium Chloride 40 MEQ/200 ML BAG IVPB PRN ×3 (00:56→07:54)
[2018-10-05 05:04] LABS: Hematocrit 26.4 % (35.3-44.9); Mean Corpuscular HGB Conc 34.1 g/dL (31.6-35.5); Mean Corpuscular Hemoglobin 31.6 pg (28.0-33.3); Mean Corpuscular Volume 92.6 fL (83.0-100.0); Mean Platelet Volume 9.3 fL (9.4-12.4); Platelet Count 198 K/mcL (140-400); Red Blood Count 2.85 M/mcL (3.82-4.97); Red Cell Distribution Width 14.6 % (11.5-14.5); White Blood Count 10.4 K/mcL (4.3-11.1)
[2018-10-05 05:09] LABS: VBG Ionized Calcium 1.54 mmol/L (1.15-1.35)
[2018-10-05 05:22] LABS: Magnesium 2.2 mg/dL (1.6-2.6)
[2018-10-05 05:28] LABS: ABG Base Excess -1 mEq/L (-2 to 3); ABG HCO3 23 mEq/L (21-27); ABG Oxygen Saturation 97 % (95-98); ABG PCO2 35 mmHg (35-45); ABG PH 7.43 pH Units (7.32-7.45); ABG PO2 87 mmHg (85-104); ABG TCO2 24 mEq/L (20-26); Blood Gas Modality ASSIST CONTROL; Blood Gas PEEP 5 cm H2O; Blood Gas VT 450 cc
[2018-10-05] MEDS: *HR* Enoxaparin 40 MG/0.4 ML SYRINGE SQ SCH (06:13)
[2018-10-05 06:39] LABS: BUN/Creatinine Ratio 24 (6-26); Blood Urea Nitrogen 20 mg/dL (8-23); Carbon Dioxide 23 mEq/L (23-29); Chloride 102 mEq/L (98-107); Glucose 132 mg/dL (70-105); Osmolality,Calculated 286 (280-300); Potassium 3.9 mEq/L (3.5-5.1); Sodium 136 mEq/L (136-145); eGFR For African Americans > 60 (> 60); eGFR For Non-African Americans > 60 (> 60)
--- NOTE | 2018-10-05 06:50 | Pulmonology Progress Note ---
<Pierre Rincon S - Last Filed: 10/05/18 08:27> Date of Encounter: 10/05/18 Time of Encounter: 08: Assessment and Plan (1) Septic shock Current Visit: Yes Status: Acute Pt consulted to critical care on 10/01 for septic shock by Dr. Chavarria - etiology was unknown at the time of consult, likely secondary to PNA - criteria for septic shock have since resolved Meets SIRS for HR, leukocytosis has resolved Did require intubation and failed CPAP trial on 10/02, 10/03, 10/04, 10.05 Blood cx 10/01 ngtd Urine cx from 10/01 negative Sputum preliminary (+) for many WBC preliminary CT chest from admission - 3.5 cm mass in the right lower lobe surrounded by consolidated lung. This likely represents primary pulmonary malignancy - Multiple tiny nodules scattered throughout the right upper lobe and left lung - skeletal metastatic disease including pathologic left rib fractures and pathologic fracture of the right lesser trochanter - bilateral adrenal masses which are almost certainly metastatic - indeterminate liver lesions Thoracentesis at bedside 10/03 showing exudative pleural fluid by Light's crite abhijit with lymphocyte predominance, without malignant cells Plan: - continue IV abx: on zosyn day 5 discontinue vancomycin 10/04 - acetaminophen prn fever - vent bundle in place - restriant order placed - versed and fentanyl for pain and sedation - final blood cx pending - levophed to keep MAP>65, has since been weaned - heme-onc consulted, recommending hospice - pallaitive care consulted family to compassionately extubate versus attempt to continue to wean from ventilator family meeting set for today 10/05 (2) Hyponatremia Current Visit: Yes Status: Resolved On admission sodium 111, has since improved to 136. Has resolved. - was started on 3% NS, has since been held Plan: - continue daily sodium checks from now - seizure precautions in place, HOB elevation - nephrology consulted, appreciate recommendations fluid restriction 1.5 L per day salt tabs added to diet nephrology signed off 10/04 (3) Lung mass Current Visit: Yes Status: Acute CT chest on admission showing: - 3.5 cm mass in the right lower lobe surrounded by consolidated lung. This likely represents primary pulmonary malignancy. - There is right hilar and mediastinal adenopathy, skeletal metastatic disease including pathologic left rib fractures and pathologic fracture of the right lesser trochanter, and bilateral adrenal masses which are almost certainly metastatic. There are indeterminate liver lesions which are likely metastatic as well. - There is a large right pleural effusion, with atelectasis of the right lower and right middle lobes. - There is trace left pleural effusion. - Tiny nodules scattered throughout both lungs may represent granulomas or metastases Bronchoscopy did show extrinisc compression RLL, 50% airway occlusion Patient is not following with oncology at this time, this is a new diagnosis. Have consulted heme-onc who feel a hospice/palliative path would be best. BAL report negative for malignancy. (4) ETOH abuse Current Visit: Yes Status: Acute CIWA protocol. (5) Acute respiratory failure Current Visit: Yes Status: Acute See above. Qualifiers: Respiratory failure complication: unspecified whether with hypoxia or hyperca pnia Qualified Code(s): J96.00 - Acute respiratory failure, unspecified w hether with hypoxia or hypercapnia (6) Pneumonia Current Visit: Yes Status: Acute See plan as above. Qualifiers: Pneumonia type: due to unspecified organism Laterality: unspecified laterality Lung location: unspecified part of lung Qualified Code(s): J18.9 - Pneumonia, unspecified organism (7) Acute metabolic encephalopathy Current Visit: Yes Status: Acute Likely secondary to hyponatremia vs infxn. (8) Atrial fibrillation with RVR Current Visit: Yes Status: Acute Pt had episode of A fib with RVR overnight. EKG showed a HR of 138 bpm. Unresponsive to lopressor. Cardizem drip started 10/03. Subjective Principal diagnosis: Septic shock Interval history: Pt seen at bedside. Failed CPAP trial again today. No overnight events. Objective PUL Vital signs: Last Vital Signs Temp 97.6 F 10/05/18 03:35 Pulse 89 10/05/18 06:00 Resp 18 10/05/18 06:00 BP 123/77 10/05/18 06:00 Pulse Ox 100 10/05/18 06:00 General appearance: asleep, appears uncomfortable Eyes: nonicteric ENT: oropharynx dry Effort: mildly labored Auscultation: bilateral: diminished breath sounds, other (expiratory wheeze, coarse breath sounds) Cardiovascular: regular rate and rhythm Gastrointestinal: soft, non-tender, other (obese) Integumentary: normal Extremities: edema (1+ pitting edema bilaterally LE) Musculoskeletal: no deformities unable to assess due to mental status other (unable to assess due to mental status) Ventilator Settings Ventilator Settings: Ventilator Settings, Last 8 Hours Ventilator Tidal Volume 450 Setting Ventilator Tidal Volume 450 Setting Ventilator Tidal Volume 450 Setting Ventilator Tidal Volume 450 Setting Ventilator Tidal Volume 450 Setting Ventilator Tidal Volume 450 Setting Ventilator Tidal Volume 450 Setting Ventilator Tidal Volume 450 Setting Ventilator Tidal Volume 450 Setting Ventilator Tidal Volume 450 Setting Ventilator Tidal Volume 450 Setting Ventilator Tidal Volume 450 Setting Ventilator Tidal Volume 450 Setting Ventilator Respiratory Rate 18 Setting Ventilator Respiratory Rate 18 Setting Ventilator Respiratory Rate 18 Setting Ventilator Respiratory Rate 18 Setting Ventilator Respiratory Rate 18 Setting Ventilator Respiratory Rate 18 Setting Ventilator Respiratory Rate 18 Setting Ventilator Respiratory Rate 18 Setting Ventilator Respiratory Rate 18 Setting Ventilator Respiratory Rate 18 Setting Ventilator Respiratory Rate 18 Setting Ventilator Respiratory Rate 18 Setting Ventilator Respiratory Rate 18 Setting Actual Respiratory Rate 18 Actual Respiratory Rate 18 Actual Respiratory Rate 18 Actual Respiratory Rate 18 Actual Respiratory Rate 18 Actual Respiratory Rate 18 Actual Respiratory Rate 18 Actual Respiratory Rate 18 Actual Respiratory Rate 18 Actual Respiratory Rate 18 Actual Respiratory Rate 18 Actual Respiratory Rate 18 Positive End Expiratory 5 Pressure Positive End Expiratory 5 Pressure Positive End Expiratory 5 Pressure Positive End Expiratory 5 Pressure Positive End Expiratory 5 Pressure Positive End Expiratory 5 Pressure Positive End Expiratory 5 Pressure Positive End Expiratory 5 Pressure Positive End Expiratory 5 Pressure Positive End Expiratory 5 Pressure Positive End Expiratory 5 Pressure Positive End Expiratory 5 Pressure Positive End Expiratory 5 Pressure Peak Inspiratory Airway 33 Pressure Peak Inspiratory Airway 31 Pressure Peak Inspiratory Airway 32 Pressure Peak Inspiratory Airway 35 Pressure Peak Inspiratory Airway 32 Pressure Peak Inspiratory Airway 33 Pressure Peak Inspiratory Airway 33 Pressure Peak Inspiratory Airway 32 Pressure Peak Inspiratory Airway 33 Pressure Peak Inspiratory Airway 32 Pressure Peak Inspiratory Airway 33 Pressure Peak Inspiratory Airway 32 Pressure Results - Laboratory Findings CBC and BMP: 10/05/18 04:45 10/05/18 04:45 ABG ABG pH 7.43 pH Units (7.32-7.45) 10/05/18 05:25 ABG pCO2 35 mmHg (35-45) 10/05/18 05:25 ABG pO2 87 mmHg (85-104) 10/05/18 05:25 ABG O2 Saturation 97 % (95-98) 10/05/18 05:25 PT/INR, D-dimer PT 11.4 Seconds (9.4-12.1) 10/01/18 03:35 Abnormal lab findings: Abnormal lab results WBC 12.6 K/mcL (4.3-11.1) H 10/04/18 05:20 RBC 2.85 M/mcL (3.82-4.97) L 10/05/18 04:45 Hgb 9.0 g/dL (11.5-15.4) L 10/05/18 04:45 Hct 26.4 % (35.3-44.9) L 10/05/18 04:45 RDW 14.6 % (11.5-14.5) H 10/05/18 04:45 MPV 9.3 fL (9.4-12.4) L 10/05/18 04:45 10.6 K/mcL (1.6-8.9) H 10/04/18 05:20 0.5 K/mcL (0.6-4.6) L 10/04/18 05:20 1.5 K/mcL (0.0-1.3) H 10/01/18 03:00 ABG pH 7.46 pH Units (7.32-7.45) H 10/02/18 04:47 ABG pCO2 30 mmHg (35-45) L 10/02/18 04:47 ABG pO2 81 mmHg (85-104) L 10/04/18 04:57 ABG HCO3 28 mEq/L (21-27) H 10/01/18 10:32 ABG Total CO2 29 mEq/L (20-26) H 10/01/18 11:55 ABG O2 Saturation 100 % (95-98) H 10/01/18 16:19 ABG Base Excess -3 mEq/L (-2 to 3) L 10/04/18 04:57 Sodium 134 mEq/L (136-145) L 10/04/18 09:46 Potassium 3.4 mEq/L (3.5-5.1) L 10/04/18 09:46 Chloride 97 mEq/L (98-107) L 10/03/18 04:20 Carbon Dioxide 21 mEq/L (23-29) L 10/04/18 05:20 BUN 7 mg/dL (8-23) L 09/30/18 04:07 0.42 mg/dL (0.60-1.20) L 09/30/18 04:07 Est GFR ( Amer) 56 (> 60) L 10/03/18 04:20 Est GFR (Non-Af Amer) 47 (> 60) L 10/03/18 04:20 Glucose 132 mg/dL (70-105) H 10/05/18 04:45 POC Glucose 115 mg/dL (70-99) H 10/04/18 23:53 259 mOsm/kg (280-300) L 09/30/18 18:02 273 (280-300) L 10/03/18 04:20 Calcium 11.0 mg/dL (8.6-10.3) H 10/05/18 04:45 Venous Ioniz Calcium 1.54 mmol/L (1.15-1.35) H 10/05/18 05:06 Phosphorus 2.0 mg/dL (2.7-4.5) L 10/05/18 04:45 Magnesium 1.3 mg/dL (1.6-2.6) L 09/30/18 04:07 AST 55 Units/L (13-39) H 10/01/18 03:35 258 Units/L (34-104) H 10/01/18 03:35 1368 Units/L (140-271) H 10/03/18 14:00 0.10 ng/mL (< 0.04) H* 10/02/18 03:40 B-Natriuretic Peptide 192 pg/mL (Less than 100) H 09/29/18 13:49 5.7 g/dL (6.4-8.9) L 10/03/18 14:00 3.1 g/dL (3.5-5.7) L 10/01/18 03:35 1.0 (1.1-2.2) L 10/01/18 03:35 30 mg/dL (Neg-Trace) H 09/29/18 11:40 15 mg/dL (Negative) H 09/29/18 11:40 Small (Negative) H 09/29/18 11:40 5-15 per hpf (0-3) H 09/29/18 11:40 Ur Squamous Epith Cells Many per lpf (None-Few) H 09/29/18 11:40 Hyaline Casts Moderate per lpf (None-Few) H 09/29/18 11:40 Fluid Appearance Cloudy (Clear) A 10/02/18 14:38 Fluid Appearance Slightly Hazy (Clear) A 10/02/18 14:38 Vancomycin Trough 33 mcg/mL (5-10) H 10/02/18 23:05 - Microbiology Findings Microbiology Findings: Microbiology, Last 48 Hours 10/02/18 13:27 Acid Fast Stain - Final Right Lower Lobe Lung 10/02/18 13:27 Acid Fast Stain - Final Right Lower Lobe Lung 09/29/18 12:35 Blood Culture - Final Peripheral Venipuncture No growth. Final report. 09/29/18 12:40 Blood Culture - Final Peripheral Venipuncture No growth. Final report. 10/02/18 13:27 Respiratory Culture - Final Right Lower Lobe Lung 10/02/18 13:27 Respiratory Culture - Preliminary Right Lower Lobe Lung 10/03/18 11:40 Gram Stain - Final Pleural Fluid 10/02/18 13:27 Fungal Culture - Preliminary Right Lower Lobe Lung Culture is incubating. 10/02/18 13:27 Fungal Culture - Preliminary Right Lower Lobe Lung Culture is incubating. 10/01/18 13:47 Sputum Culture - Preliminary Sputum - Clinical Findings Intake & Output: Intake & Output 10/04/18 10/04/18 10/05/18 15:59 23:59 07:59 Intake Total 600 / 2287.2 1331.2 / 2287.2 636 / 636 Output Total 350 / 870 420 / 870 50 / 50 Balance 250 / 1417.2 911.2 / 1417.2 586 / 586 Weight 106 kg Consult Discharge Plan - Plan Referrals: Giovani Wills MD [Primary Care Provider] - <Rich Hernandez W - Last Filed: 10/05/18 14:22> Date of Encounter: 10/05/18 Objective PUL Vital signs: Last Vital Signs Temp 98.1 F 10/05/18 13:03 Pulse 87 10/05/18 14:00 Resp 18 10/05/18 14:00 BP 119/67 10/05/18 14:00 Pulse Ox 100 10/05/18 14:00 Ventilator Settings Ventilator Settings: Ventilator Settings, Last 8 Hours Ventilator Tidal Volume 450 Setting Ventilator Tidal Volume 450 Setting Ventilator Tidal Volume 450 Setting Ventilator Tidal Volume 450 Setting Ventilator Tidal Volume 450 Setting Ventilator Tidal Volume 450 Setting Ventilator Tidal Volume 450 Setting Ventilator Tidal Volume 450 Setting Ventilator Tidal Volume 450 Setting Ventilator Tidal Volume 450 Setting Ventilator Tidal Volume 450 Setting Ventilator Respiratory Rate 18 Setting Ventilator Respiratory Rate 18 Setting Ventilator Respiratory Rate 18 Setting Ventilator Respiratory Rate 18 Setting Ventilator Respiratory Rate 18 Setting Ventilator Respiratory Rate 18 Setting Ventilator Respiratory Rate 18 Setting Ventilator Respiratory Rate 18 Setting Ventilator Respiratory Rate 18 Setting Ventilator Respiratory Rate 18 Setting Ventilator Respiratory Rate 18 Setting Actual Respiratory Rate 18 Actual Respiratory Rate 18 Actual Respiratory Rate 18 Actual Respiratory Rate 18 Actual Respiratory Rate 18 Actual Respiratory Rate 18 Actual Respiratory Rate 18 Actual Respiratory Rate 18 Actual Respiratory Rate 18 Actual Respiratory Rate 18 Actual Respiratory Rate 18 Positive End Expiratory 5 Pressure Positive End Expiratory 5 Pressure Positive End Expiratory 5 Pressure Positive End Expiratory 5 Pressure Positive End Expiratory 5 Pressure Positive End Expiratory 5 Pressure Positive End Expiratory 5 Pressure Positive End Expiratory 5 Pressure Positive End Expiratory 5 Pressure Positive End Expiratory 5 Pressure Positive End Expiratory 5 Pressure Positive End Expiratory 5 Pressure Peak Inspiratory Airway 38 Pressure Peak Inspiratory Airway 36 Pressure Peak Inspiratory Airway 35 Pressure Peak Inspiratory Airway 36 Pressure Peak Inspiratory Airway 34 Pressure Peak Inspiratory Airway 33 Pressure Peak Inspiratory Airway 35 Pressure Peak Inspiratory Airway 37 Pressure Peak Inspiratory Airway 37 Pressure Peak Inspiratory Airway 41 Pressure Peak Inspiratory Airway 34 Pressure Results - Laboratory Findings CBC and BMP: 10/05/18 04:45 10/05/18 10:31 ABG ABG pH 7.43 pH Units (7.32-7.45) 10/05/18 05:25 ABG pCO2 35 mmHg (35-45) 10/05/18 05:25 ABG pO2 87 mmHg (85-104) 10/05/18 05:25 ABG O2 Saturation 97 % (95-98) 10/05/18 05:25 PT/INR, D-dimer PT 11.4 Seconds (9.4-12.1) 10/01/18 03:35 Abnormal lab findings: Abnormal lab results WBC 12.6 K/mcL (4.3-11.1) H 10/04/18 05:20 RBC 2.85 M/mcL (3.82-4.97) L 10/05/18 04:45 Hgb 9.0 g/dL (11.5-15.4) L 10/05/18 04:45 Hct 26.4 % (35.3-44.9) L 10/05/18 04:45 RDW 14.6 % (11.5-14.5) H 10/05/18 04:45 MPV 9.3 fL (9.4-12.4) L 10/05/18 04:45 10.6 K/mcL (1.6-8.9) H 10/04/18 05:20 0.5 K/mcL (0.6-4.6) L 10/04/18 05:20 1.5 K/mcL (0.0-1.3) H 10/01/18 03:00 ABG pH 7.46 pH Units (7.32-7.45) H 10/02/18 04:47 ABG pCO2 30 mmHg (35-45) L 10/02/18 04:47 ABG pO2 81 mmHg (85-104) L 10/04/18 04:57 ABG HCO3 28 mEq/L (21-27) H 10/01/18 10:32 ABG Total CO2 29 mEq/L (20-26) H 10/01/18 11:55 ABG O2 Saturation 100 % (95-98) H 10/01/18 16:19 ABG Base Excess -3 mEq/L (-2 to 3) L 10/04/18 04:57 Sodium 135 mEq/L (136-145) L 10/05/18 10:31 Potassium 3.4 mEq/L (3.5-5.1) L 10/04/18 09:46 Chloride 97 mEq/L (98-107) L 10/03/18 04:20 Carbon Dioxide 21 mEq/L (23-29) L 10/04/18 05:20 BUN 7 mg/dL (8-23) L 09/30/18 04:07 0.42 mg/dL (0.60-1.20) L 09/30/18 04:07 Est GFR ( Amer) 56 (> 60) L 10/03/18 04:20 Est GFR (Non-Af Amer) 47 (> 60) L 10/03/18 04:20 Glucose 122 mg/dL (70-105) H 10/05/18 10:31 POC Glucose 115 mg/dL (70-99) H 10/04/18 23:53 259 mOsm/kg (280-300) L 09/30/18 18:02 273 (280-300) L 10/03/18 04:20 Calcium 11.2 mg/dL (8.6-10.3) H 10/05/18 10:31 Venous Ioniz Calcium 1.54 mmol/L (1.15-1.35) H 10/05/18 05:06 Phosphorus 2.0 mg/dL (2.7-4.5) L 10/05/18 10:31 Magnesium 1.3 mg/dL (1.6-2.6) L 09/30/18 04:07 AST 55 Units/L (13-39) H 10/01/18 03:35 258 Units/L (34-104) H 10/01/18 03:35 1368 Units/L (140-271) H 10/03/18 14:00 0.10 ng/mL (< 0.04) H* 10/02/18 03:40 B-Natriuretic Peptide 192 pg/mL (Less than 100) H 09/29/18 13:49 5.7 g/dL (6.4-8.9) L 10/03/18 14:00 3.1 g/dL (3.5-5.7) L 10/01/18 03:35 1.0 (1.1-2.2) L 10/01/18 03:35 30 mg/dL (Neg-Trace) H 09/29/18 11:40 15 mg/dL (Negative) H 09/29/18 11:40 Small (Negative) H 09/29/18 11:40 5-15 per hpf (0-3) H 09/29/18 11:40 Ur Squamous Epith Cells Many per lpf (None-Few) H 09/29/18 11:40 Hyaline Casts Moderate per lpf (None-Few) H 09/29/18 11:40 Fluid Appearance Cloudy (Clear) A 10/02/18 14:38 Fluid Appearance Slightly Hazy (Clear) A 10/02/18 14:38 Vancomycin Trough 33 mcg/mL (5-10) H 10/02/18 23:05 - Microbiology Findings Microbiology Findings: Microbiology, Last 48 Hours 10/02/18 13:27 Legionella Culture - Final Right Lower Lobe Lung 10/02/18 13:27 Legionella Culture - Final Right Lower Lobe Lung 10/01/18 13:47 Sputum Culture - Final Sputum 10/02/18 13:27 Respiratory Culture - Final Right Lower Lobe Lung 10/02/18 13:27 Acid Fast Stain - Final Right Lower Lobe Lung 10/02/18 13:27 Acid Fast Stain - Final Right Lower Lobe Lung 09/29/18 12:35 Blood Culture - Final Peripheral Venipuncture No growth. Final report. 09/29/18 12:40 Blood Culture - Final Peripheral Venipuncture No growth. Final report. 10/02/18 13:27 Respiratory Culture - Final Right Lower Lobe Lung 10/03/18 11:40 Gram Stain - Final Pleural Fluid 10/02/18 13:27 Fungal Culture - Preliminary Right Lower Lobe Lung Culture is incubating. 10/02/18 13:27 Fungal Culture - Preliminary Right Lower Lobe Lung Culture is incubating. - Clinical Findings Intake & Output: Intake & Output 10/04/18 10/05/18 10/05/18 23:59 07:59 15:59 Intake Total 1331.2 / 2287.2 866 / 866 Output Total 420 / 870 50 / 325 275 / 325 Balance 911.2 / 1417.2 816 / 541 -275 / 541 Weight 106 kg - Attending Attestation I examined this patient and my medical decision-making was reviewed with the Resident Physician. I agree with the documented findings, disposition and treatment plan as described except to the extent set forth below. We independently had [id number] contact with the patient Patient seen and examined at bedside Labs, radiology, chart personally reviewed. Management was reviewed during multidisciplinary critical care rounds. 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 fib with RVR rate controlled GI: PPI prophylaxis given while on vent Nutrition: Continue enteral nutrition per dietary recommendations Renal: UOP Monitored, Cont to Trend sCr and monitor Electrolytes. ID: She is on antibiotics for pneumonia Heme/Onc: Suspected metastatic cancer cytology from pleural fluid and BAL negative for malignancy oncology as signed citing poor prognosis and recommendations to palliation Endo: Glucose Monitored Integ/MSK: Skin Care per routine ICU Nursing Protocol to prevent ulcers. Lines: All lines examined without evidence of infection : Dispo: Monitor in ICU for vent management CODE: [email or web address] I met with the at bedside all questions answered plan to transition to comfort measures early part of the week and we will try to attempt liberation from the vent in the interim has been expressed that he wanted "a little time with her off the vent" thus far that has been problematic we will continue to try. Overall prognosis very poor.
[2018-10-05] MEDS: PrednisoLONE Acetate 1% Opth 5 ML BOTTLE RIGHT EYE SCH ×3 (07:55→19:45)
[2018-10-05] MEDS: Chlorhexidine Rinse 15 ML MOUTHWASH MM SCH ×2 (07:58→19:47)
[2018-10-05] MEDS: Pantoprazole 40 MG VIAL IVP SCH (07:58)
[2018-10-05] MEDS: Norepinephrine 4 MG in D5% in Water 250 ML IVC SCH (11:30)
[2018-10-05 12:06] LABS: BUN/Creatinine Ratio 23 (6-26); Blood Urea Nitrogen 19 mg/dL (8-23); Calcium 11.2 mg/dL (8.6-10.3); Carbon Dioxide 24 mEq/L (23-29); Chloride 103 mEq/L (98-107); Glucose 122 mg/dL (70-105); Osmolality,Calculated 284 (280-300); Potassium 4.4 mEq/L (3.5-5.1); Sodium 135 mEq/L (136-145); eGFR For African Americans > 60 (> 60); eGFR For Non-African Americans > 60 (> 60)
--- NOTE | 2018-10-05 13:42 | Palliative Progress Note ---
Date of Encounter: 10/05/18 Time of Encounter: 13:00 - Assessment and plan (1) Goals of care, counseling/discussion Current Visit: Yes Status: Acute Assessment and plan: Conducted bedside meeting with Samra and daughter. Reviewed admit CT of the haed, abdomen and pelvis. Provided DNRCC - Comfort Care State form. Discussed that today is day 8 of intubation and patient continues to fail CPAP trials. Provided emotional support to Samra as he is not accepting diagnosis well. Plan is to continue to extubate and meet again on Sunday morning at 11am in patients room to discuss next steps. I discussed that even if patient is able to successfully be extubated that a transition to comfort care should occur. Family verbalized understanding. It is likely that patient will be compassionate extubation then transition to hospice care. Family was provided a copy of State DNR Comfort Care document with a review of what will and waht will not be performed in the setting of DNRCC - Comfort care. Family verbalized understanding and PC team will continue to follow. (2) Acute respiratory failure Current Visit: Yes Status: Acute Assessment and plan: Remains intubated on mechanical ventilation and sedated with fentany gtt. Qualifiers: Respiratory failure complication: unspecified whether with hypoxia or hypercapnia Qualified Code(s): J96.00 - Acute respiratory failure, unspecified whether with hypoxia or hypercapnia (3) Pneumonia Current Visit: Yes Status: Acute Qualifiers: Pneumonia type: due to unspecified organism Laterality: unspecified laterality Lung location: unspecified part of lung Qualified Code(s): J18.9 - Pneumonia, unspecified organism (4) Septic shock Current Visit: Yes Status: Acute (5) Metastatic lung cancer (metastasis from lung to other site) Current Visit: Yes Status: Acute Assessment and plan: Printed and reviewed admission CT results with family. Discussed severity of metastatic disease. NO recommendations of chemotherapy d/t no clinical benefit. Qualifiers: Laterality: right Qualified Code(s): C34.91 - Malignant neoplasm of unspec ified part of right bronchus or lung (6) Palliative care encounter Current Visit: Yes Status: Acute (7) ETOH abuse Current Visit: Yes Status: Acute - Time Spent With Patient Total time spent is greater than 50% in coordination of care (as documented) at patient's floor/unit and/or counseling patient: 25 - 35 minutes - Subjective Interval history: Patient remains intubated and mechanically ventilated. Failed CPAP trial again this AM. Conducted bedside meeting with Samra and patients daughter. - Constitutional Vitals: Abnormal lab results WBC 12.6 K/mcL (4.3-11.1) H 10/04/18 05:20 RBC 2.85 M/mcL (3.82-4.97) L 10/05/18 04:45 Hgb 9.0 g/dL (11.5-15.4) L 10/05/18 04:45 Hct 26.4 % (35.3-44.9) L 10/05/18 04:45 RDW 14.6 % (11.5-14.5) H 10/05/18 04:45 MPV 9.3 fL (9.4-12.4) L 10/05/18 04:45 10.6 K/mcL (1.6-8.9) H 10/04/18 05:20 0.5 K/mcL (0.6-4.6) L 10/04/18 05:20 1.5 K/mcL (0.0-1.3) H 10/01/18 03:00 ABG pH 7.46 pH Units (7.32-7.45) H 10/02/18 04:47 ABG pCO2 30 mmHg (35-45) L 10/02/18 04:47 ABG pO2 81 mmHg (85-104) L 10/04/18 04:57 ABG HCO3 28 mEq/L (21-27) H 10/01/18 10:32 ABG Total CO2 29 mEq/L (20-26) H 10/01/18 11:55 ABG O2 Saturation 100 % (95-98) H 10/01/18 16:19 ABG Base Excess -3 mEq/L (-2 to 3) L 10/04/18 04:57 Sodium 135 mEq/L (136-145) L 10/05/18 10:31 Potassium 3.4 mEq/L (3.5-5.1) L 10/04/18 09:46 Chloride 97 mEq/L (98-107) L 10/03/18 04:20 Carbon Dioxide 21 mEq/L (23-29) L 10/04/18 05:20 BUN 7 mg/dL (8-23) L 09/30/18 04:07 0.42 mg/dL (0.60-1.20) L 09/30/18 04:07 Est GFR ( Amer) 56 (> 60) L 10/03/18 04:20 Est GFR (Non-Af Amer) 47 (> 60) L 10/03/18 04:20 Glucose 122 mg/dL (70-105) H 10/05/18 10:31 POC Glucose 115 mg/dL (70-99) H 10/04/18 23:53 259 mOsm/kg (280-300) L 09/30/18 18:02 273 (280-300) L 10/03/18 04:20 Calcium 11.2 mg/dL (8.6-10.3) H 10/05/18 10:31 Venous Ioniz Calcium 1.54 mmol/L (1.15-1.35) H 10/05/18 05:06 Phosphorus 2.0 mg/dL (2.7-4.5) L 10/05/18 10:31 Magnesium 1.3 mg/dL (1.6-2.6) L 09/30/18 04:07 AST 55 Units/L (13-39) H 10/01/18 03:35 258 Units/L (34-104) H 10/01/18 03:35 1368 Units/L (140-271) H 10/03/18 14:00 0.10 ng/mL (< 0.04) H* 10/02/18 03:40 B-Natriuretic Peptide 192 pg/mL (Less than 100) H 09/29/18 13:49 5.7 g/dL (6.4-8.9) L 10/03/18 14:00 3.1 g/dL (3.5-5.7) L 10/01/18 03:35 1.0 (1.1-2.2) L 10/01/18 03:35 30 mg/dL (Neg-Trace) H 09/29/18 11:40 15 mg/dL (Negative) H 09/29/18 11:40 Small (Negative) H 09/29/18 11:40 5-15 per hpf (0-3) H 09/29/18 11:40 Ur Squamous Epith Cells Many per lpf (None-Few) H 09/29/18 11:40 Hyaline Casts Moderate per lpf (None-Few) H 09/29/18 11:40 Fluid Appearance Cloudy (Clear) A 10/02/18 14:38 Fluid Appearance Slightly Hazy (Clear) A 10/02/18 14:38 Vancomycin Trough 33 mcg/mL (5-10) H 10/02/18 23:05 - Head Head exam: Present: atraumatic, normal inspection - Eye Eye exam: Present: PERRL Pupils: Present: PERRL - ENT ENT exam: Present: mucous membranes moist - Neck Neck exam: Present: tenderness - Respiratory Respiratory exam: Present: respiratory distress - Expanded Respiratory Exam Location: decreased breath sounds: Left, Right, Lower - Cardiovascular Cardiovascular exam: Present: irregular rhythm, +S1, +S2 - GI/Abdominal GI/Abdominal exam: Present: distended, firm - Extremities Exam Extremities exam: Present: tenderness - Back Exam Back exam: Present: vertebral tenderness - Neurological Exam Neurological exam: Present: altered (patient sedated for vent management) - Psychiatric Psychiatric exam: Present: flat affect - Skin Skin exam: Present: pallor, warm Palliative Quality Palliative Quality: Screen for Code Status: Yes, Screen for Goals of Care: Yes, Screen for Pain: Yes, Screen for Nausea/Vomitting: Yes Code Status: 09/29/18 16:07 Resuscitation Status: Active [RES] Routine Comment: Resuscitation Status: Full Code 10/03/18 12:23 DNR [Resuscitation Status: Active] [RES] Routine Comment: Resuscitation Status: DNR-Comfort Care-Arrest - Labs CBC & Chem 7: 10/05/18 04:45 10/05/18 10:31 Labs: Laboratory Results - last 24 hr 10/04/18 10/04/18 10/04/18 03:42 08:01 12:16 WBC RBC Hgb Hct MCV MCH MCHC RDW Plt Count MPV ABG pH ABG pCO2 ABG pO2 ABG HCO3 ABG Total CO2 ABG O2 Saturation ABG Base Excess Manpreet Test Respiration Rate O2 Delivery Device Blood Gas Modality Inspired O2 Tidal Volume PEEP Sodium Potassium Chloride Carbon Dioxide BUN Creatinine Est GFR ( Amer) Est GFR (Non-Af Amer) BUN/Creatinine Ratio Glucose POC Glucose 92 95 92 Calculated Osmolality Calcium Venous Ioniz Calcium Phosphorus Magnesium 10/04/18 10/04/18 10/04/18 15:33 20:07 20:30 WBC RBC Hgb Hct MCV MCH MCHC RDW Plt Count MPV ABG pH ABG pCO2 ABG pO2 ABG HCO3 ABG Total CO2 ABG O2 Saturation ABG Base Excess Manpreet Test Respiration Rate O2 Delivery Device Blood Gas Modality Inspired O2 Tidal Volume PEEP Sodium Potassium 3.5 Chloride Carbon Dioxide BUN Creatinine Est GFR ( Amer) Est GFR (Non-Af Amer) BUN/Creatinine Ratio Glucose POC Glucose 100 H 117 H Calculated Osmolality Calcium Venous Ioniz Calcium Phosphorus Magnesium 1.9 10/04/18 10/05/18 10/05/18 23:53 04:45 04:45 WBC 10.4 RBC 2.85 L Hgb 9.0 L Hct 26.4 L MCV 92.6 MCH 31.6 MCHC 34.1 RDW 14.6 H Plt Count 198 MPV 9.3 L ABG pH ABG pCO2 ABG pO2 ABG HCO3 ABG Total CO2 ABG O2 Saturation ABG Base Excess Manpreet Test Respiration Rate O2 Delivery Device Blood Gas Modality Inspired O2 Tidal Volume PEEP Sodium 136 Potassium 3.9 Chloride 102 Carbon Dioxide 23 BUN 20 Creatinine 0.82 Est GFR ( Amer) > 60 Est GFR (Non-Af Amer) > 60 BUN/Creatinine Ratio 24 Glucose 132 H POC Glucose 115 H Calculated Osmolality 286 Calcium 11.0 H Venous Ioniz Calcium Phosphorus 2.0 L Magnesium 2.2 10/05/18 10/05/18 10/05/18 05:06 05:25 10:31 WBC RBC Hgb Hct MCV MCH MCHC RDW Plt Count MPV ABG pH 7.43 ABG pCO2 35 ABG pO2 87 ABG HCO3 23 ABG Total CO2 24 ABG O2 Saturation 97 ABG Base Excess -1 Manpreet Test N/A Respiration Rate 18 O2 Delivery Device AeroMask Blood Gas Modality ASSIST CONTROL Inspired O2 40.0 Tidal Volume 450 PEEP 5 Sodium 135 L Potassium 4.4 Chloride 103 Carbon Dioxide 24 BUN 19 Creatinine 0.81 Est GFR ( Amer) > 60 Est GFR (Non-Af Amer) > 60 BUN/Creatinine Ratio 23 Glucose 122 H POC Glucose Calculated Osmolality 284 Calcium 11.2 H Venous Ioniz Calcium 1.54 H Phosphorus 2.0 L Magnesium - Impressions Impressions Retroperitoneum Ultrasound 10/04/18 19:30 IMPRESSION: No hydronephrosis nor shadowing renal pelvic stones. Tiny amount of bilateral perinephric fluid. Mildly increased renal parenchymal echogenicity, a nonspecific finding suggesting medical renal disease. D/ / Yoselyn Pike Cha, MD / Yoselyn Pike Cha, MD Interpreting Provider: Yoselyn Pike Cha, MD - ABG Interpretation ABG results: ABG ABG pH 7.43 pH Units (7.32-7.45) 10/05/18 05:25 ABG pCO2 35 mmHg (35-45) 10/05/18 05:25 ABG pO2 87 mmHg (85-104) 10/05/18 05:25 ABG O2 Saturation 97 % (95-98) 10/05/18 05:25 PT/INR, D-dimer PT 11.4 Seconds (9.4-12.1) 10/01/18 03:35 Consult Discharge Plan - Plan Referrals: Giovani Wills MD [Primary Care Provider] -
[2018-10-05] MEDS: Thiamine (B-1) 100 MG, Folic Acid 1 MG, MVI, adult with vitamin K 10 ML in 0.9 % Sodi... IVPB SCH (18:01)
[2018-10-05] MEDS: MethylPREDNISolone 40 MG/ML VIAL IVP SCH ×2 (18:01→23:57)
[2018-10-05] MEDS: FentaNYL (PF) 1,000 MCG in 0.9 % Sodium Chloride 80 ML IVC SCH (19:00)
[2018-10-06] MEDS: Artificial Tears SOLN 15 ML BOTTLE BOTH EYES SCH ×7 (00:07→23:23)
[2018-10-06 04:35] LABS: ABG Base Excess 1 mEq/L (-2 to 3); ABG HCO3 26 mEq/L (21-27); ABG Oxygen Saturation 97 % (95-98); ABG PCO2 41 mmHg (35-45); ABG PH 7.41 pH Units (7.32-7.45); ABG PO2 85 mmHg (85-104); ABG TCO2 27 mEq/L (20-26); Blood Gas PEEP 5 cm H2O; Blood Gas VT 450 cc
[2018-10-06 05:17] LABS: Basophils % 0.3 %; Hematocrit 27.7 % (35.3-44.9); Hemoglobin 9.1 g/dL (11.5-15.4); Immature Granulocytes % 4.7 % (0-4); Lymphocytes # 0.3 K/mcL (0.6-4.6); Mean Corpuscular HGB Conc 32.9 g/dL (31.6-35.5); Mean Corpuscular Hemoglobin 31.3 pg (28.0-33.3); Mean Corpuscular Volume 95.2 fL (83.0-100.0); Mean Platelet Volume 9.5 fL (9.4-12.4); Monocytes # 0.2 K/mcL (0.0-1.3); Platelet Count 209 K/mcL (140-400); Red Blood Count 2.91 M/mcL (3.82-4.97); Red Cell Distribution Width 14.7 % (11.5-14.5); White Blood Count 7.9 K/mcL (4.3-11.1)
[2018-10-06 05:17] LABS: VBG Ionized Calcium 1.54 mmol/L (1.15-1.35)
[2018-10-06 05:35] LABS: Magnesium 1.5 mg/dL (1.6-2.6); Phosphorous 2.4 mg/dL (2.7-4.5)
[2018-10-06 05:35] LABS: BUN/Creatinine Ratio 27 (6-26); Blood Urea Nitrogen 22 mg/dL (8-23); Calcium 10.8 mg/dL (8.6-10.3); Carbon Dioxide 24 mEq/L (23-29); Chloride 105 mEq/L (98-107); Glucose 188 mg/dL (70-105); Osmolality,Calculated 290 (280-300); Potassium 4.4 mEq/L (3.5-5.1); Sodium 136 mEq/L (136-145); eGFR For African Americans > 60 (> 60); eGFR For Non-African Americans > 60 (> 60)
[2018-10-06] MEDS: *HR* Enoxaparin 40 MG/0.4 ML SYRINGE SQ SCH (05:48)
[2018-10-06] MEDS ORDERED: Furosemide 40 MG/4 ML VIAL IVP ONE (06:58)
--- NOTE | 2018-10-06 07:02 | Pulmonology Progress Note ---
<Pierre Rincon S - Last Filed: 10/06/18 10:20> Date of Encounter: 10/06/18 Time of Encounter: 08:44 Assessment and Plan (1) Septic shock Current Visit: Yes Status: Acute Pt consulted to critical care on 10/01 for septic shock by Dr. Chavarria - etiology was unknown at the time of consult, likely secondary to PNA - criteria for septic shock have since resolved Meets SIRS for HR, leukocytosis has resolved Did require intubation and failed CPAP trial on 10/02, 10/03, 10/04, 10.05, 10/06 Blood cx 10/01 ngtd, 09/29 negative Urine cx from 10/01 negative Sputum preliminary negative for pathogens CT chest from admission - 3.5 cm mass in the right lower lobe surrounded by consolidated lung. This likely represents primary pulmonary malignancy - Multiple tiny nodules scattered throughout the right upper lobe and left lung - skeletal metastatic disease including pathologic left rib fractures and pathologic fracture of the right lesser trochanter - bilateral adrenal masses which are almost certainly metastatic - indeterminate liver lesions Thoracentesis at bedside 10/03 showing exudative pleural fluid by Light's criteria with lymphocyte predominance, without malignant cells Plan: - continue IV abx: on zosyn day 6 discontinue vancomycin 10/04 - acetaminophen prn fever - vent bundle in place - restriant order placed - versed and fentanyl for pain and sedation - final blood cx pending - levophed to keep MAP>65, has since been weaned - heme-onc consulted, recommending hospice - pallaitive care consulted family to compassionately extubate versus attempt to continue to wean from ventilator family meeting moved to SundayOctober 07 (2) Hyponatremia Current Visit: Yes Status: Resolved On admission sodium 111, has since improved to 136. Has resolved. - was started on 3% NS, has since been held Plan: - continue daily sodium checks from now - seizure precautions in place, HOB elevation - nephrology consulted, appreciate recommendations fluid restriction 1.5 L per day salt tabs added to diet nephrology signed off 10/04 (3) Lung mass Current Visit: Yes Status: Acute CT chest on admission showing: - 3.5 cm mass in the right lower lobe surrounded by consolidated lung. This likely represents primary pulmonary malignancy. - There is right hilar and mediastinal adenopathy, skeletal metastatic disease including pathologic left rib fractures and pathologic fracture of the right lesser trochanter, and bilateral adrenal masses which are almost certainly metastatic. There are indeterminate liver lesions which are likely metastatic as well. - There is a large right pleural effusion, with atelectasis of the right lower and right middle lobes. - There is trace left pleural effusion. - Tiny nodules scattered throughout both lungs may represent granulomas or metastases Bronchoscopy did show extrinisc compression RLL, 50% airway occlusion Patient is not following with oncology at this time, this is a new diagnosis. Have consulted heme-onc who feel a hospice/palliative path would be best. BAL report negative for malignancy. (4) ETOH abuse Current Visit: Yes Status: Acute CIWA protocol. (5) Acute respiratory failure Current Visit: Yes Status: Acute See above. Qualifiers: Respiratory failure complication: unspecified whether with hypoxia or hypercapnia Qualified Code(s): J96.00 - Acute respiratory failure, unspecified whether with hypoxia or hypercapnia (6) Pneumonia Current Visit: Yes Status: Acute See plan as above. Qualifiers: Pneumonia type: due to unspecified organism Laterality: unspecified laterality Lung location: unspecified part of lung Qualified Code(s): J18.9 - Pneumonia, unspecified organism (7) Acute metabolic encephalopathy Current Visit: Yes Status: Acute Likely secondary to hyponatremia vs infxn. (8) Atrial fibrillation with RVR Current Visit: Yes Status: Acute Pt had episode of A fib with RVR on 10/03. EKG showed a HR of 138 bpm. Unresponsive to lopressor. Cardizem drip started 10/03. (9) Constipation Current Visit: Yes Status: Acute No recorded BM since admitted. Noted abdominal distention on exam this AM. Added jana TINSLEY. Qualifiers: Constipation type: unspecified constipation type Qualified Code(s): K59.00 - Constipation, unspecified Subjective Principal diagnosis: Septic shock Interval history: Pt seen at bedside. Failed CPAP trial again today 10/06. No overnight events. Objective PUL Vital signs: Last Vital Signs Temp 98.6 F 10/06/18 04:48 Pulse 105 10/06/18 06:00 Resp 18 10/06/18 06:00 BP 134/87 10/06/18 06:00 Pulse Ox 100 10/06/18 06:00 General appearance: no acute distress, lethargic Eyes: nonicteric ENT: oropharynx dry Effort: mildly labored Auscultation: bilateral: diminished breath sounds, other (coarse breath sounds have improved) Cardiovascular: regular rate and rhythm Gastrointestinal: soft, non-tender, other (distended abdomen since yesterday) Integumentary: normal Extremities: pulses normal, no ischemia or petechiae, edema (1+ pitting edema bilat LE) Musculoskeletal: no deformities unable to assess due to mental status other (unable to assess due to mental status) Ventilator Settings Ventilator Settings: Ventilator Settings, Last 8 Hours Ventilator Tidal Volume 450 Setting Ventilator Tidal Volume 450 Setting Ventilator Tidal Volume 450 Setting Ventilator Tidal Volume 450 Setting Ventilator Tidal Volume 450 Setting Ventilator Tidal Volume 450 Setting Ventilator Tidal Volume 450 Setting Ventilator Tidal Volume 450 Setting Ventilator Tidal Volume 450 Setting Ventilator Tidal Volume 450 Setting Ventilator Tidal Volume 450 Setting Ventilator Tidal Volume 450 Setting Ventilator Respiratory Rate 18 Setting Ventilator Respiratory Rate 18 Setting Ventilator Respiratory Rate 18 Setting Ventilator Respiratory Rate 18 Setting Ventilator Respiratory Rate 18 Setting Ventilator Respiratory Rate 18 Setting Ventilator Respiratory Rate 18 Setting Ventilator Respiratory Rate 18 Setting Ventilator Respiratory Rate 18 Setting Ventilator Respiratory Rate 18 Setting Ventilator Respiratory Rate 18 Setting Ventilator Respiratory Rate 18 Setting Actual Respiratory Rate 18 Actual Respiratory Rate 18 Actual Respiratory Rate 18 Actual Respiratory Rate 18 Actual Respiratory Rate 18 Actual Respiratory Rate 18 Actual Respiratory Rate 18 Actual Respiratory Rate 18 Actual Respiratory Rate 18 Actual Respiratory Rate 18 Actual Respiratory Rate 18 Positive End Expiratory 5 Pressure Positive End Expiratory 5 Pressure Positive End Expiratory 5 Pressure Positive End Expiratory 5 Pressure Positive End Expiratory 5 Pressure Positive End Expiratory 5 Pressure Positive End Expiratory 5 Pressure Positive End Expiratory 5 Pressure Positive End Expiratory 5 Pressure Positive End Expiratory 5 Pressure Positive End Expiratory 5 Pressure Positive End Expiratory 5 Pressure Peak Inspiratory Airway 32 Pressure Peak Inspiratory Airway 32 Pressure Peak Inspiratory Airway 34 Pressure Peak Inspiratory Airway 34 Pressure Peak Inspiratory Airway 34 Pressure Peak Inspiratory Airway 50 Pressure Peak Inspiratory Airway 37 Pressure Peak Inspiratory Airway 38 Pressure Peak Inspiratory Airway 38 Pressure Peak Inspiratory Airway 36 Pressure Peak Inspiratory Airway 37 Pressure Results - Laboratory Findings CBC and BMP: 10/06/18 05:00 10/06/18 04:00 ABG ABG pH 7.41 pH Units (7.32-7.45) 10/06/18 04:32 ABG pCO2 41 mmHg (35-45) 10/06/18 04:32 ABG pO2 85 mmHg (85-104) 10/06/18 04:32 ABG O2 Saturation 97 % (95-98) 10/06/18 04:32 PT/INR, D-dimer PT 11.4 Seconds (9.4-12.1) 10/01/18 03:35 Abnormal lab findings: Abnormal lab results WBC 12.6 K/mcL (4.3-11.1) H 10/04/18 05:20 RBC 2.91 M/mcL (3.82-4.97) L 10/06/18 05:00 Hgb 9.1 g/dL (11.5-15.4) L 10/06/18 05:00 Hct 27.7 % (35.3-44.9) L 10/06/18 05:00 RDW 14.7 % (11.5-14.5) H 10/06/18 05:00 MPV 9.3 fL (9.4-12.4) L 10/05/18 04:45 Immature Gran % 4.7 % (0-4) H 10/06/18 05:00 10.6 K/mcL (1.6-8.9) H 10/04/18 05:20 0.3 K/mcL (0.6-4.6) L 10/06/18 05:00 1.5 K/mcL (0.0-1.3) H 10/01/18 03:00 ABG pH 7.46 pH Units (7.32-7.45) H 10/02/18 04:47 ABG pCO2 30 mmHg (35-45) L 10/02/18 04:47 ABG pO2 81 mmHg (85-104) L 10/04/18 04:57 ABG HCO3 28 mEq/L (21-27) H 10/01/18 10:32 ABG Total CO2 27 mEq/L (20-26) H 10/06/18 04:32 ABG O2 Saturation 100 % (95-98) H 10/01/18 16:19 ABG Base Excess -3 mEq/L (-2 to 3) L 10/04/18 04:57 Sodium 135 mEq/L (136-145) L 10/05/18 10:31 Potassium 3.4 mEq/L (3.5-5.1) L 10/04/18 09:46 Chloride 97 mEq/L (98-107) L 10/03/18 04:20 Carbon Dioxide 21 mEq/L (23-29) L 10/04/18 05:20 BUN 7 mg/dL (8-23) L 09/30/18 04:07 0.42 mg/dL (0.60-1.20) L 09/30/18 04:07 Est GFR ( Amer) 56 (> 60) L 10/03/18 04:20 Est GFR (Non-Af Amer) 47 (> 60) L 10/03/18 04:20 27 (6-26) H 10/06/18 04:00 Glucose 188 mg/dL (70-105) H 10/06/18 04:00 POC Glucose 143 mg/dL (70-99) H 10/05/18 23:40 259 mOsm/kg (280-300) L 09/30/18 18:02 273 (280-300) L 10/03/18 04:20 Calcium 10.8 mg/dL (8.6-10.3) H 10/06/18 04:00 Venous Ioniz Calcium 1.54 mmol/L (1.15-1.35) H 10/06/18 05:14 Phosphorus 2.4 mg/dL (2.7-4.5) L 10/06/18 05:00 Magnesium 1.5 mg/dL (1.6-2.6) L 10/06/18 05:00 AST 55 Units/L (13-39) H 10/01/18 03:35 258 Units/L (34-104) H 10/01/18 03:35 1368 Units/L (140-271) H 10/03/18 14:00 0.10 ng/mL (< 0.04) H* 10/02/18 03:40 B-Natriuretic Peptide 192 pg/mL (Less than 100) H 09/29/18 13:49 5.7 g/dL (6.4-8.9) L 10/03/18 14:00 3.1 g/dL (3.5-5.7) L 10/01/18 03:35 1.0 (1.1-2.2) L 10/01/18 03:35 30 mg/dL (Neg-Trace) H 09/29/18 11:40 15 mg/dL (Negative) H 09/29/18 11:40 Small (Negative) H 09/29/18 11:40 5-15 per hpf (0-3) H 09/29/18 11:40 Ur Squamous Epith Cells Many per lpf (None-Few) H 09/29/18 11:40 Hyaline Casts Moderate per lpf (None-Few) H 09/29/18 11:40 Fluid Appearance Cloudy (Clear) A 10/02/18 14:38 Fluid Appearance Slightly Hazy (Clear) A 10/02/18 14:38 Vancomycin Trough 33 mcg/mL (5-10) H 10/02/18 23:05 - Microbiology Findings Microbiology Findings: Microbiology, Last 48 Hours 10/02/18 13:27 Legionella Culture - Final Right Lower Lobe Lung 10/02/18 13:27 Legionella Culture - Final Right Lower Lobe Lung 10/01/18 13:47 Sputum Culture - Final Sputum 10/02/18 13:27 Respiratory Culture - Final Right Lower Lobe Lung 10/02/18 13:27 Acid Fast Stain - Final Right Lower Lobe Lung 10/02/18 13:27 Acid Fast Stain - Final Right Lower Lobe Lung 09/29/18 12:35 Blood Culture - Final Peripheral Venipuncture No growth. Final report. 09/29/18 12:40 Blood Culture - Final Peripheral Venipuncture No growth. Final report. 10/02/18 13:27 Respiratory Culture - Final Right Lower Lobe Lung - Clinical Findings Intake & Output: Intake & Output 10/05/18 10/05/18 10/06/18 15:59 23:59 07:59 Intake Total 360 / 2350 804 / 2350 1272.2 / 1272.2 Output Total 275 / 775 450 / 775 225 / 225 Balance 85 / 1575 354 / 1575 1047.2 / 1047.2 Weight 108.2 kg Consult Discharge Plan - Plan Referrals: Giovani Wills MD [Primary Care Provider] - <Rich Hernandez - Last Filed: 10/06/18 12:30> Date of Encounter: 10/06/18 Objective PUL Vital signs: Last Vital Signs Temp 98.6 F 10/06/18 04:48 Pulse 83 10/06/18 10:00 Resp 18 10/06/18 10:10 BP 110/83 10/06/18 10:00 Pulse Ox 93 10/06/18 10:10 Ventilator Settings Ventilator Settings: Ventilator Settings, Last 8 Hours Ventilator Tidal Volume 450 Setting Ventilator Tidal Volume 450 Setting Ventilator Tidal Volume 450 Setting Ventilator Tidal Volume 450 Setting Ventilator Tidal Volume 450 Setting Ventilator Tidal Volume 450 Setting Ventilator Tidal Volume 450 Setting Ventilator Tidal Volume 450 Setting Ventilator Tidal Volume 450 Setting Ventilator Tidal Volume 450 Setting Ventilator Respiratory Rate 18 Setting Ventilator Respiratory Rate 18 Setting Ventilator Respiratory Rate 18 Setting Ventilator Respiratory Rate 18 Setting Ventilator Respiratory Rate 18 Setting Ventilator Respiratory Rate 18 Setting Ventilator Respiratory Rate 18 Setting Ventilator Respiratory Rate 18 Setting Ventilator Respiratory Rate 18 Setting Ventilator Respiratory Rate 18 Setting Actual Respiratory Rate 18 Actual Respiratory Rate 18 Actual Respiratory Rate 18 Actual Respiratory Rate 18 Actual Respiratory Rate 18 Actual Respiratory Rate 18 Actual Respiratory Rate 18 Actual Respiratory Rate 18 Actual Respiratory Rate 18 Positive End Expiratory 5 Pressure Positive End Expiratory 5 Pressure Positive End Expiratory 5 Pressure Positive End Expiratory 5 Pressure Positive End Expiratory 5 Pressure Positive End Expiratory 5 Pressure Positive End Expiratory 5 Pressure Positive End Expiratory 5 Pressure Positive End Expiratory 5 Pressure Positive End Expiratory 5 Pressure Peak Inspiratory Airway 42 Pressure Peak Inspiratory Airway 32 Pressure Peak Inspiratory Airway 33 Pressure Peak Inspiratory Airway 32 Pressure Peak Inspiratory Airway 34 Pressure Peak Inspiratory Airway 33 Pressure Peak Inspiratory Airway 32 Pressure Peak Inspiratory Airway 32 Pressure Peak Inspiratory Airway 34 Pressure Results - Laboratory Findings CBC and BMP: 10/06/18 05:00 10/06/18 04:00 ABG ABG pH 7.41 pH Units (7.32-7.45) 10/06/18 04:32 ABG pCO2 41 mmHg (35-45) 10/06/18 04:32 ABG pO2 85 mmHg (85-104) 10/06/18 04:32 ABG O2 Saturation 97 % (95-98) 10/06/18 04:32 PT/INR, D-dimer PT 11.4 Seconds (9.4-12.1) 10/01/18 03:35 Abnormal lab findings: Abnormal lab results WBC 12.6 K/mcL (4.3-11.1) H 10/04/18 05:20 RBC 2.91 M/mcL (3.82-4.97) L 10/06/18 05:00 Hgb 9.1 g/dL (11.5-15.4) L 10/06/18 05:00 Hct 27.7 % (35.3-44.9) L 10/06/18 05:00 RDW 14.7 % (11.5-14.5) H 10/06/18 05:00 MPV 9.3 fL (9.4-12.4) L 10/05/18 04:45 Immature Gran % 4.7 % (0-4) H 10/06/18 05:00 10.6 K/mcL (1.6-8.9) H 10/04/18 05:20 0.3 K/mcL (0.6-4.6) L 10/06/18 05:00 1.5 K/mcL (0.0-1.3) H 10/01/18 03:00 ABG pH 7.46 pH Units (7.32-7.45) H 10/02/18 04:47 ABG pCO2 30 mmHg (35-45) L 10/02/18 04:47 ABG pO2 81 mmHg (85-104) L 10/04/18 04:57 ABG HCO3 28 mEq/L (21-27) H 10/01/18 10:32 ABG Total CO2 27 mEq/L (20-26) H 10/06/18 04:32 ABG O2 Saturation 100 % (95-98) H 10/01/18 16:19 ABG Base Excess -3 mEq/L (-2 to 3) L 10/04/18 04:57 Sodium 135 mEq/L (136-145) L 10/05/18 10:31 Potassium 3.4 mEq/L (3.5-5.1) L 10/04/18 09:46 Chloride 97 mEq/L (98-107) L 10/03/18 04:20 Carbon Dioxide 21 mEq/L (23-29) L 10/04/18 05:20 BUN 7 mg/dL (8-23) L 09/30/18 04:07 0.42 mg/dL (0.60-1.20) L 09/30/18 04:07 Est GFR ( Amer) 56 (> 60) L 10/03/18 04:20 Est GFR (Non-Af Amer) 47 (> 60) L 10/03/18 04:20 27 (6-26) H 10/06/18 04:00 Glucose 188 mg/dL (70-105) H 10/06/18 04:00 POC Glucose 143 mg/dL (70-99) H 10/05/18 23:40 259 mOsm/kg (280-300) L 09/30/18 18:02 273 (280-300) L 10/03/18 04:20 Calcium 10.8 mg/dL (8.6-10.3) H 10/06/18 04:00 Venous Ioniz Calcium 1.54 mmol/L (1.15-1.35) H 10/06/18 05:14 Phosphorus 2.3 mg/dL (2.7-4.5) L 10/06/18 10:15 Magnesium 1.5 mg/dL (1.6-2.6) L 10/06/18 05:00 AST 55 Units/L (13-39) H 10/01/18 03:35 258 Units/L (34-104) H 10/01/18 03:35 1368 Units/L (140-271) H 10/03/18 14:00 0.10 ng/mL (< 0.04) H* 10/02/18 03:40 B-Natriuretic Peptide 192 pg/mL (Less than 100) H 09/29/18 13:49 5.7 g/dL (6.4-8.9) L 10/03/18 14:00 3.1 g/dL (3.5-5.7) L 10/01/18 03:35 1.0 (1.1-2.2) L 10/01/18 03:35 30 mg/dL (Neg-Trace) H 09/29/18 11:40 15 mg/dL (Negative) H 09/29/18 11:40 Small (Negative) H 09/29/18 11:40 5-15 per hpf (0-3) H 09/29/18 11:40 Ur Squamous Epith Cells Many per lpf (None-Few) H 09/29/18 11:40 Hyaline Casts Moderate per lpf (None-Few) H 09/29/18 11:40 Fluid Appearance Cloudy (Clear) A 10/02/18 14:38 Fluid Appearance Slightly Hazy (Clear) A 10/02/18 14:38 Vancomycin Trough 33 mcg/mL (5-10) H 10/02/18 23:05 - Microbiology Findings Microbiology Findings: Microbiology, Last 48 Hours 10/01/18 09:35 Blood Culture - Final Peripheral Venipuncture No growth. Final report. 10/01/18 09:27 Blood Culture - Final Peripheral Venipuncture No growth. Final report. 10/02/18 13:27 Legionella Culture - Final Right Lower Lobe Lung 10/02/18 13:27 Legionella Culture - Final Right Lower Lobe Lung 10/01/18 13:47 Sputum Culture - Final Sputum 10/02/18 13:27 Respiratory Culture - Final Right Lower Lobe Lung 10/02/18 13:27 Acid Fast Stain - Final Right Lower Lobe Lung 10/02/18 13:27 Acid Fast Stain - Final Right Lower Lobe Lung 09/29/18 12:35 Blood Culture - Final Peripheral Venipuncture No growth. Final report. 09/29/18 12:40 Blood Culture - Final Peripheral Venipuncture No growth. Final report. 10/02/18 13:27 Respiratory Culture - Final Right Lower Lobe Lung - Clinical Findings Intake & Output: Intake & Output 10/05/18 10/06/18 10/06/18 23:59 07:59 15:59 Intake Total 804 / 2350 1272.2 / 1317.2 45 / 1317.2 Output Total 450 / 775 225 / 225 Balance 354 / 1575 1047.2 / 1092.2 45 / 1092.2 Weight 108.2 kg - Attending Attestation I examined this patient and my medical decision-making was reviewed with the Resident Physician. I agree with the documented findings, disposition and treatment plan as described except to the extent set forth below. We independently had [id number] contact with the patient Patient seen and examined at bedside Labs, radiology, chart personally reviewed. Management was reviewed during multidisciplinary critical care rounds. PHOTOGRAPHER FINISH: Remains somnolent on the vent on minimal amount of sedation she is able to respond to very simple questions but unable to sustain attention for much time consistent with delirium the daily sedation holiday Pulm: Acute hypoxic hypercapnic respiratory failure secondary to pneumonia complicated by lung cancer. Failed CPAP trial today but will attempt to diurese and return again tomorrow. Otherwise acceptable gas exchange patient appears comfortable on the vent Cards: Blood pressure monitored and stable A. fib rate controlled on diltiazem GI: GI prophylaxis given Nutrition: Continue enteral nutrition per dietary recommendations Renal: UOP Monitored, Cont to Trend sCr and monitor Electrolytes. ID: She is on antibiotics for pneumonia Heme/Onc: DVT prophylaxis given Endo: Glucose Monitored Integ/MSK: Skin Care per routine ICU Nursing Protocol to prevent ulcers. Lines: All lines examined without evidence of infection : Dispo: Monitor in ICU for vent management CODE: DNAR I updated the at bedside today QUESTIONS were answered likely transition to compassionate extubation if unable to liberate from the ventilator over the next 24-48 hours as family members arrive from out of town
[2018-10-06] MEDS: Piperacillin/Tazobactam 3.375 GM in 0.9 % Sodium Chloride Mini Bag 100 ML IVPB SCH ×4 (07:12→23:25)
[2018-10-06] MEDS: Chlorhexidine Rinse 15 ML MOUTHWASH MM SCH ×2 (07:35→20:36)
[2018-10-06] MEDS: Pantoprazole 40 MG VIAL IVP SCH (07:35)
[2018-10-06] MEDS: MethylPREDNISolone 40 MG/ML VIAL IVP SCH ×3 (07:36→23:25)
[2018-10-06] MEDS: PrednisoLONE Acetate 1% Opth 5 ML BOTTLE RIGHT EYE SCH ×3 (07:36→20:37)
[2018-10-06] MEDS: Sennosides 8.6 MG TABLET PO SCH (10:21)
[2018-10-06] MEDS: Bisacodyl 10 MG RECTAL SUPPOSITORY RC SCH (10:21)
[2018-10-06] MEDS ORDERED: *HR* Dextrose 50 % in Water (Syg) 50 ML SYRINGE IVP PRN (12:26)
[2018-10-06] MEDS ORDERED: D5% in Water 1,000 ML IVC PRN (12:26)
[2018-10-06] MEDS ORDERED: Dextrose Gel 15 GM/37.5 ML TUBE PO PRN ×2 (12:26)
--- NOTE | 2018-10-06 12:36 | Event Note ---
Date of Encounter: 10/06/18 Time of Encounter: 11:45 Met with daughter, son-in-law and patients sister. Updated on patient status. Patient once again failed CPAP trail d/t tachycardia and distress. Family meeting tomorrow at 11am. Will plan for compassionate extubation. Patient with extensive metastatic cancer. Explained compassionate extubation process. Pat expected to need support. Family to reach out to family wet end operator. I will also have manager nc Julito Stock present. Patient is day #10 in intubation. Explained that patient will be transitioned to [facility] - Comfort Care before extubation and comfort will be provided. Family verbalized understanding.
[2018-10-06] MEDS: Norepinephrine 4 MG in D5% in Water 250 ML IVC SCH (12:54)
[2018-10-06] MEDS: Thiamine (B-1) 100 MG, Folic Acid 1 MG, MVI, adult with vitamin K 10 ML in 0.9 % Sodi... IVPB SCH (17:40)
[2018-10-06] MEDS: Insulin LISPRO 300 UNITS/3 ML VIAL SQ SCH ×2 (18:37→23:55)
[2018-10-07] MEDS: Artificial Tears SOLN 15 ML BOTTLE BOTH EYES SCH ×3 (03:50→11:51)
[2018-10-07 05:20] LABS: ABG Base Excess 2 mEq/L (-2 to 3); ABG HCO3 27 mEq/L (21-27); ABG Oxygen Saturation 97 % (95-98); ABG PCO2 42 mmHg (35-45); ABG PH 7.41 pH Units (7.32-7.45); ABG PO2 86 mmHg (85-104); ABG TCO2 28 mEq/L (20-26); Blood Gas Modality AF; Blood Gas PEEP 5 cm H2O; Blood Gas VT 450 cc
[2018-10-07 06:03] LABS: Basophils % 0.1 %; Hematocrit 27.4 % (35.3-44.9); Hemoglobin 8.9 g/dL (11.5-15.4); Immature Granulocytes % 2.4 % (0-4); Lymphocytes # 0.3 K/mcL (0.6-4.6); Lymphocytes % 2.3 %; Mean Corpuscular HGB Conc 32.5 g/dL (31.6-35.5); Mean Corpuscular Hemoglobin 30.8 pg (28.0-33.3); Mean Corpuscular Volume 94.8 fL (83.0-100.0); Mean Platelet Volume 9.3 fL (9.4-12.4); Monocytes # 0.9 K/mcL (0.0-1.3); Monocytes % 6.4 %; Neutrophils # 11.9 K/mcL (1.6-8.9); Platelet Count 221 K/mcL (140-400); Red Blood Count 2.89 M/mcL (3.82-4.97); Red Cell Distribution Width 15.1 % (11.5-14.5); Segmented Neutrophils % 88.8 %
[2018-10-07 06:04] LABS: White Blood Count 13.4 K/mcL (4.3-11.1)
[2018-10-07 06:05] LABS: VBG Ionized Calcium 1.41 mmol/L (1.15-1.35)
[2018-10-07 06:30] LABS: BUN/Creatinine Ratio 40 (6-26); Blood Urea Nitrogen 33 mg/dL (8-23); Carbon Dioxide 27 mEq/L (23-29); Chloride 106 mEq/L (98-107); Glucose 164 mg/dL (70-105); Osmolality,Calculated 305 (280-300); Potassium 3.3 mEq/L (3.5-5.1); Sodium 142 mEq/L (136-145); eGFR For African Americans > 60 (> 60); eGFR For Non-African Americans > 60 (> 60)
[2018-10-07] MEDS: Insulin LISPRO 300 UNITS/3 ML VIAL SQ SCH ×2 (06:32→11:52)
[2018-10-07] MEDS: FentaNYL (PF) 1,000 MCG in 0.9 % Sodium Chloride 80 ML IVC SCH ×2 (06:33→20:20)
[2018-10-07] MEDS: *HR* Enoxaparin 40 MG/0.4 ML SYRINGE SQ SCH (06:40)
[2018-10-07] MEDS: Piperacillin/Tazobactam 3.375 GM in 0.9 % Sodium Chloride Mini Bag 100 ML IVPB SCH ×3 (06:41→23:41)
[2018-10-07] MEDS: Potassium Chloride 40 MEQ/200 ML BAG IVPB PRN (06:51)
--- NOTE | 2018-10-07 07:45 | Pulmonology Progress Note ---
<Joelle Gameznorth M - Last Filed: 10/07/18 10:32> Date of Encounter: 10/07/18 Objective PUL Vital signs: Last Vital Signs Temp 97.7 F 10/07/18 08:00 Pulse 108 10/07/18 10:00 Resp 27 10/07/18 10:00 BP 130/78 10/07/18 10:00 Pulse Ox 91 10/07/18 10:00 Ventilator Settings Ventilator Settings: Ventilator Settings, Last 8 Hours Ventilator Tidal Volume 450 Setting Ventilator Tidal Volume 450 Setting Ventilator Tidal Volume 450 Setting Ventilator Tidal Volume 450 Setting Ventilator Tidal Volume 450 Setting Ventilator Tidal Volume 450 Setting Ventilator Tidal Volume 450 Setting Ventilator Tidal Volume 450 Setting Ventilator Tidal Volume 450 Setting Ventilator Tidal Volume 450 Setting Ventilator Tidal Volume 450 Setting Ventilator Respiratory Rate 18 Setting Ventilator Respiratory Rate 18 Setting Ventilator Respiratory Rate 18 Setting Ventilator Respiratory Rate 18 Setting Ventilator Respiratory Rate 18 Setting Ventilator Respiratory Rate 18 Setting Actual Respiratory Rate 30 Actual Respiratory Rate 30 Actual Respiratory Rate 30 Actual Respiratory Rate 30 Actual Respiratory Rate 30 Actual Respiratory Rate 25 Actual Respiratory Rate 19 Actual Respiratory Rate 18 Actual Respiratory Rate 18 Actual Respiratory Rate 18 Actual Respiratory Rate 18 Positive End Expiratory 5 Pressure Positive End Expiratory 5 Pressure Positive End Expiratory 5 Pressure Positive End Expiratory 5 Pressure Positive End Expiratory 5 Pressure Positive End Expiratory 5 Pressure Positive End Expiratory 5 Pressure Positive End Expiratory 5 Pressure Positive End Expiratory 5 Pressure Positive End Expiratory 5 Pressure Positive End Expiratory 5 Pressure Positive End Expiratory 5 Pressure Peak Inspiratory Airway 18 Pressure Peak Inspiratory Airway 18 Pressure Peak Inspiratory Airway 18 Pressure Peak Inspiratory Airway 18 Pressure Peak Inspiratory Airway 18 Pressure Peak Inspiratory Airway 18 Pressure Peak Inspiratory Airway 25 Pressure Peak Inspiratory Airway 26 Pressure Peak Inspiratory Airway 33 Pressure Peak Inspiratory Airway 37 Pressure Peak Inspiratory Airway 41 Pressure Results - Laboratory Findings CBC and BMP: 10/07/18 05:45 10/07/18 05:45 ABG ABG pH 7.41 pH Units (7.32-7.45) 10/07/18 05:14 ABG pCO2 42 mmHg (35-45) 10/07/18 05:14 ABG pO2 86 mmHg (85-104) 10/07/18 05:14 ABG O2 Saturation 97 % (95-98) 10/07/18 05:14 PT/INR, D-dimer PT 11.4 Seconds (9.4-12.1) 10/01/18 03:35 Abnormal lab findings: Abnormal lab results WBC 13.4 K/mcL (4.3-11.1) H D 10/07/18 05:45 RBC 2.89 M/mcL (3.82-4.97) L 10/07/18 05:45 Hgb 8.9 g/dL (11.5-15.4) L 10/07/18 05:45 Hct 27.4 % (35.3-44.9) L 10/07/18 05:45 RDW 15.1 % (11.5-14.5) H 10/07/18 05:45 MPV 9.3 fL (9.4-12.4) L 10/07/18 05:45 Immature Gran % 4.7 % (0-4) H 10/06/18 05:00 11.9 K/mcL (1.6-8.9) H 10/07/18 05:45 0.3 K/mcL (0.6-4.6) L 10/07/18 05:45 1.5 K/mcL (0.0-1.3) H 10/01/18 03:00 ABG pH 7.46 pH Units (7.32-7.45) H 10/02/18 04:47 ABG pCO2 30 mmHg (35-45) L 10/02/18 04:47 ABG pO2 81 mmHg (85-104) L 10/04/18 04:57 ABG HCO3 28 mEq/L (21-27) H 10/01/18 10:32 ABG Total CO2 28 mEq/L (20-26) H 10/07/18 05:14 ABG O2 Saturation 100 % (95-98) H 10/01/18 16:19 ABG Base Excess -3 mEq/L (-2 to 3) L 10/04/18 04:57 Sodium 135 mEq/L (136-145) L 10/05/18 10:31 Potassium 3.3 mEq/L (3.5-5.1) L 10/07/18 05:45 Chloride 97 mEq/L (98-107) L 10/03/18 04:20 Carbon Dioxide 21 mEq/L (23-29) L 10/04/18 05:20 BUN 33 mg/dL (8-23) H 10/07/18 05:45 0.42 mg/dL (0.60-1.20) L 09/30/18 04:07 Est GFR ( Amer) 56 (> 60) L 10/03/18 04:20 Est GFR (Non-Af Amer) 47 (> 60) L 10/03/18 04:20 40 (6-26) H 10/07/18 05:45 Glucose 164 mg/dL (70-105) H 10/07/18 05:45 POC Glucose 149 mg/dL (70-99) H 10/06/18 23:54 259 mOsm/kg (280-300) L 09/30/18 18:02 305 (280-300) H 10/07/18 05:45 Calcium 10.8 mg/dL (8.6-10.3) H 10/06/18 04:00 Venous Ioniz Calcium 1.41 mmol/L (1.15-1.35) H 10/07/18 06:02 Phosphorus 2.3 mg/dL (2.7-4.5) L 10/06/18 10:15 Magnesium 1.5 mg/dL (1.6-2.6) L 10/06/18 05:00 AST 55 Units/L (13-39) H 10/01/18 03:35 258 Units/L (34-104) H 10/01/18 03:35 1368 Units/L (140-271) H 10/03/18 14:00 0.10 ng/mL (< 0.04) H* 10/02/18 03:40 B-Natriuretic Peptide 192 pg/mL (Less than 100) H 09/29/18 13:49 5.7 g/dL (6.4-8.9) L 10/03/18 14:00 3.1 g/dL (3.5-5.7) L 10/01/18 03:35 1.0 (1.1-2.2) L 10/01/18 03:35 30 mg/dL (Neg-Trace) H 09/29/18 11:40 15 mg/dL (Negative) H 09/29/18 11:40 Small (Negative) H 09/29/18 11:40 5-15 per hpf (0-3) H 09/29/18 11:40 Ur Squamous Epith Cells Many per lpf (None-Few) H 09/29/18 11:40 Hyaline Casts Moderate per lpf (None-Few) H 09/29/18 11:40 Fluid Appearance Cloudy (Clear) A 10/02/18 14:38 Fluid Appearance Slightly Hazy (Clear) A 10/02/18 14:38 Vancomycin Trough 33 mcg/mL (5-10) H 10/02/18 23:05 - Microbiology Findings Microbiology Findings: Microbiology, Last 48 Hours 10/01/18 09:35 Blood Culture - Final Peripheral Venipuncture No growth. Final report. 10/01/18 09:27 Blood Culture - Final Peripheral Venipuncture No growth. Final report. 10/02/18 13:27 Legionella Culture - Final Right Lower Lobe Lung 10/02/18 13:27 Legionella Culture - Final Right Lower Lobe Lung 10/01/18 13:47 Sputum Culture - Final Sputum 10/02/18 13:27 Respiratory Culture - Final Right Lower Lobe Lung - Clinical Findings Intake & Output: Intake & Output 10/06/18 10/07/18 10/07/18 23:59 07:59 15:59 Intake Total 1556.2 / 3878.4 826 / 826 Output Total 625 / 1850 400 / 400 Balance 931.2 / 2028.4 426 / 426 Weight 108.9 kg Consult Discharge Plan - Plan Referrals: Giovani Wills MD [Primary Care Provider] - - Attending Attestation I examined this patient and my medical decision-making was reviewed with the Resident Physician. I agree with the documented findings, disposition and treatment plan as described except to the extent set forth below. Patient seen and examined. Labs, radiology, chart personally reviewed. Agree with resident's history and physical, assessment, plan with following comments: PROCESS EXCELLENCE MANAGER: Patient follows commands, Pulmonary: Acceptable oxygenation and ventilation and she is CPAP Cardiovascular: stable GI: Nutrition per dietary and GI prophylaxis per routine Heme: DVT prophylaxis per routine ID: Continue antibiotics and plan to de-escalation Renal; urine out put and renal function reviewed Endorcine: blood glucose is monitored Lines: all lines checked and no evidence of infections Skin: skin care to prevent pressure ulcers per nursing routine care Dispo: ICU for now and she will need a palliative bed Code: DNR-CC Prognosis. Poor <Ting Knowles - Last Filed: 10/07/18 17:27> Date of Encounter: 10/07/18 Time of Encounter: 07:45 Assessment and Plan (1) Goals of care, counseling/discussion Current Visit: Yes Status: Acute * Patient has had failed BiPAP trials. * Palliative care involved in the patient's care and after long discussions with family as well as the patient they plan for extubation today. Patient agreeable and understanding that she may fail extubation and should she develop respiratory distress she does not wish to be intubated. CODE STATUS has been updated to DNR CCA DNI * Patient underwent extubation and now continues on nasal cannula * She is stable for transition to the floor today, 2A * UPDATE 1615: Patient had long discussion with palliative care regarding her metastatic lung cancer and at this point is likely in denial of prognosis and therefore she wishes to fight. She requests transitioning her CODE STATUS back to DNR CCA. Patient's family is understandable that the patient's cancer is likely not treatable and we will therefore stay overnight and should she deteriorate in respiratory function and require intubation they will make the determination at that point in time whether to intubate or not. I did discuss with oncology who previously evaluated the patient while intubated and requested repeat evaluation with patient to determine course of treatment plan and explain the prognosis of her new metastatic lung cancer and they state they will consult to see the patient tomorrow (2) Septic shock Current Visit: Yes Status: Acute * Patient initially admitted on 09/29 secondary to severe hyponatremia, new diagnosis of metastatic lung cancer and acute metabolic encephalopathy * On 10/01/18 patient developed hypotension and acute respiratory failure secondary to likely right lower lobe pneumonia * On 10/03/18 patient underwent ultrasound-guided thoracentesis * Sputum culture, urine culture and blood cultures negative to date. * Patient continues on Zosyn, day 7 * No longer requiring vasopressors. (3) Atrial fibrillation with RVR Current Visit: Yes Status: Acute * Patient has been stable on Cardizem drip, wall transition to by mouth Cardizem now that she is extubated * Continues on Lovenox subcutaneous daily (4) ETOH abuse Current Visit: Yes Status: Acute * Thiamine supplementation (5) Metastatic lung cancer (metastasis from lung to other site) Current Visit: Yes Status: Acute * CT angiogram from admission dated 09/29/18 shows 3.5 cm mass in the right lower lobe concerning for primary pulmonary malignancy with multiple neck is final adenopathy, skeletal metastatic disease * Oncology evaluated the patient and deemed her a poor candidate for treatment of likely small cell lung cancer given multiple metastatic sites, will reassess if oncology can discuss the prognosis and treatment options again today given she was intubated during her previous evaluation * Given significant metastasis found patient is been evaluated by palliative care. CODE STATUS changed to DNR CCA DNI * Patient's hyponatremia has resolved and was likely due to SIADH * Continue with IV fentanyl drip for pain control * Ativan when necessary for agitation and anxiety Qualifiers: Laterality: right Qualified Code(s): C34.91 - Malignant neoplasm of unspecified part of right bronchus or lung (6) Constipation Current Visit: Yes Status: Acute * Continuing to monitor Qualifiers: Constipation type: unspecified constipation type Qualified Code(s): K59.00 - Constipation, unspecified Subjective Principal diagnosis: Septic shock Objective PUL Vital signs: Last Vital Signs Temp 97.7 F 10/07/18 07:24 Pulse 90 10/07/18 06:00 Resp 30 10/07/18 06:00 BP 113/72 10/07/18 06:00 Pulse Ox 92 10/07/18 06:00 General appearance: no acute distress Eyes: nonicteric ENT: oropharynx moist Effort: normal Auscultation: bilateral: clear Cardiovascular: irregular rhythm, other (Afib with RVR) Gastrointestinal: normoactive bowel sounds Integumentary: normal Extremities: no cyanosis Musculoskeletal: no deformities normal mental status mood appropriate, affect normal Ventilator Settings Ventilator Settings: Ventilator Settings, Last 8 Hours Ventilator Tidal Volume 450 Setting Ventilator Tidal Volume 450 Setting Ventilator Tidal Volume 450 Setting Ventilator Tidal Volume 450 Setting Ventilator Tidal Volume 450 Setting Ventilator Tidal Volume 450 Setting Ventilator Tidal Volume 450 Setting Ventilator Tidal Volume 450 Setting Ventilator Tidal Volume 450 Setting Ventilator Tidal Volume 450 Setting Ventilator Respiratory Rate 18 Setting Ventilator Respiratory Rate 18 Setting Ventilator Respiratory Rate 18 Setting Ventilator Respiratory Rate 18 Setting Ventilator Respiratory Rate 18 Setting Ventilator Respiratory Rate 18 Setting Ventilator Respiratory Rate 18 Setting Ventilator Respiratory Rate 18 Setting Ventilator Respiratory Rate 18 Setting Actual Respiratory Rate 30 Actual Respiratory Rate 25 Actual Respiratory Rate 19 Actual Respiratory Rate 18 Actual Respiratory Rate 18 Actual Respiratory Rate 18 Actual Respiratory Rate 18 Actual Respiratory Rate 18 Actual Respiratory Rate 18 Actual Respiratory Rate 18 Positive End Expiratory 5 Pressure Positive End Expiratory 5 Pressure Positive End Expiratory 5 Pressure Positive End Expiratory 5 Pressure Positive End Expiratory 5 Pressure Positive End Expiratory 5 Pressure Positive End Expiratory 5 Pressure Positive End Expiratory 5 Pressure Positive End Expiratory 5 Pressure Positive End Expiratory 5 Pressure Positive End Expiratory 5 Pressure Peak Inspiratory Airway 18 Pressure Peak Inspiratory Airway 18 Pressure Peak Inspiratory Airway 25 Pressure Peak Inspiratory Airway 26 Pressure Peak Inspiratory Airway 33 Pressure Peak Inspiratory Airway 37 Pressure Peak Inspiratory Airway 41 Pressure Peak Inspiratory Airway 33 Pressure Peak Inspiratory Airway 29 Pressure Peak Inspiratory Airway 27 Pressure Results - Laboratory Findings CBC and BMP: 10/07/18 05:45 10/07/18 05:45 ABG ABG pH 7.41 pH Units (7.32-7.45) 10/07/18 05:14 ABG pCO2 42 mmHg (35-45) 10/07/18 05:14 ABG pO2 86 mmHg (85-104) 10/07/18 05:14 ABG O2 Saturation 97 % (95-98) 10/07/18 05:14 PT/INR, D-dimer PT 11.4 Seconds (9.4-12.1) 10/01/18 03:35 Abnormal lab findings: Abnormal lab results WBC 13.4 K/mcL (4.3-11.1) H D 10/07/18 05:45 RBC 2.89 M/mcL (3.82-4.97) L 10/07/18 05:45 Hgb 8.9 g/dL (11.5-15.4) L 10/07/18 05:45 Hct 27.4 % (35.3-44.9) L 10/07/18 05:45 RDW 15.1 % (11.5-14.5) H 10/07/18 05:45 MPV 9.3 fL (9.4-12.4) L 10/07/18 05:45 Immature Gran % 4.7 % (0-4) H 10/06/18 05:00 11.9 K/mcL (1.6-8.9) H 10/07/18 05:45 0.3 K/mcL (0.6-4.6) L 10/07/18 05:45 1.5 K/mcL (0.0-1.3) H 10/01/18 03:00 ABG pH 7.46 pH Units (7.32-7.45) H 10/02/18 04:47 ABG pCO2 30 mmHg (35-45) L 10/02/18 04:47 ABG pO2 81 mmHg (85-104) L 10/04/18 04:57 ABG HCO3 28 mEq/L (21-27) H 10/01/18 10:32 ABG Total CO2 28 mEq/L (20-26) H 10/07/18 05:14 ABG O2 Saturation 100 % (95-98) H 10/01/18 16:19 ABG Base Excess -3 mEq/L (-2 to 3) L 10/04/18 04:57 Sodium 135 mEq/L (136-145) L 10/05/18 10:31 Potassium 3.3 mEq/L (3.5-5.1) L 10/07/18 05:45 Chloride 97 mEq/L (98-107) L 10/03/18 04:20 Carbon Dioxide 21 mEq/L (23-29) L 10/04/18 05:20 BUN 33 mg/dL (8-23) H 10/07/18 05:45 0.42 mg/dL (0.60-1.20) L 09/30/18 04:07 Est GFR ( Amer) 56 (> 60) L 10/03/18 04:20 Est GFR (Non-Af Amer) 47 (> 60) L 10/03/18 04:20 40 (6-26) H 10/07/18 05:45 Glucose 164 mg/dL (70-105) H 10/07/18 05:45 POC Glucose 149 mg/dL (70-99) H 10/06/18 23:54 259 mOsm/kg (280-300) L 09/30/18 18:02 305 (280-300) H 10/07/18 05:45 Calcium 10.8 mg/dL (8.6-10.3) H 10/06/18 04:00 Venous Ioniz Calcium 1.41 mmol/L (1.15-1.35) H 10/07/18 06:02 Phosphorus 2.3 mg/dL (2.7-4.5) L 10/06/18 10:15 Magnesium 1.5 mg/dL (1.6-2.6) L 10/06/18 05:00 AST 55 Units/L (13-39) H 10/01/18 03:35 258 Units/L (34-104) H 10/01/18 03:35 1368 Units/L (140-271) H 10/03/18 14:00 0.10 ng/mL (< 0.04) H* 10/02/18 03:40 B-Natriuretic Peptide 192 pg/mL (Less than 100) H 09/29/18 13:49 5.7 g/dL (6.4-8.9) L 10/03/18 14:00 3.1 g/dL (3.5-5.7) L 10/01/18 03:35 1.0 (1.1-2.2) L 10/01/18 03:35 30 mg/dL (Neg-Trace) H 09/29/18 11:40 15 mg/dL (Negative) H 09/29/18 11:40 Small (Negative) H 09/29/18 11:40 5-15 per hpf (0-3) H 09/29/18 11:40 Ur Squamous Epith Cells Many per lpf (None-Few) H 09/29/18 11:40 Hyaline Casts Moderate per lpf (None-Few) H 09/29/18 11:40 Fluid Appearance Cloudy (Clear) A 10/02/18 14:38 Fluid Appearance Slightly Hazy (Clear) A 10/02/18 14:38 Vancomycin Trough 33 mcg/mL (5-10) H 10/02/18 23:05 - Microbiology Findings Microbiology Findings: Microbiology, Last 48 Hours 10/01/18 09:35 Blood Culture - Final Peripheral Venipuncture No growth. Final report. 10/01/18 09:27 Blood Culture - Final Peripheral Venipuncture No growth. Final report. 10/02/18 13:27 Legionella Culture - Final Right Lower Lobe Lung 10/02/18 13:27 Legionella Culture - Final Right Lower Lobe Lung 10/01/18 13:47 Sputum Culture - Final Sputum 10/02/18 13:27 Respiratory Culture - Final Right Lower Lobe Lung - Clinical Findings Intake & Output: Intake & Output 10/06/18 10/06/18 10/07/18 15:59 23:59 07:59 Intake Total 813 / 3878.4 1556.2 / 3878.4 826 / 826 Output Total 1000 / 1850 625 / 1850 400 / 400 Balance -187 / 2027.4 931.2 / 2027.4 426 / 426 Weight 108.9 kg
[2018-10-07] MEDS: Sennosides 8.6 MG TABLET PO SCH (07:58)
[2018-10-07] MEDS: Chlorhexidine Rinse 15 ML MOUTHWASH MM SCH (08:04)
[2018-10-07] MEDS: Pantoprazole 40 MG VIAL IVP SCH (08:04)
[2018-10-07] MEDS: MethylPREDNISolone 40 MG/ML VIAL IVP SCH ×2 (08:04→23:41)
[2018-10-07] MEDS: PrednisoLONE Acetate 1% Opth 5 ML BOTTLE RIGHT EYE SCH ×3 (08:04→22:19)
[2018-10-07] MEDS: Bisacodyl 10 MG RECTAL SUPPOSITORY RC SCH (08:05)
[2018-10-07] MEDS ORDERED: *HR* LORazepam 2 MG/ML VIAL IVP PRN (11:08)
[2018-10-07] MEDS ORDERED: Sennosides 8.6 MG TABLET PO PRN ×2 (11:15→16:33)
[2018-10-07] MEDS ORDERED: Bisacodyl 10 MG RECTAL SUPPOSITORY RC PRN ×2 (11:15→16:33)
--- NOTE | 2018-10-07 11:33 | Palliative Progress Note ---
Date of Encounter: 10/07/18 Time of Encounter: 10:30 - Assessment and plan (1) Acute respiratory failure Current Visit: Yes Status: Acute Assessment and plan: Patient appears better today, awake, tolerating CPAP. For palliative extubation today. Qualifiers: Respiratory failure complication: unspecified whether with hypoxia or hypercapnia Qualified Code(s): J96.00 - Acute respiratory failure, unspecified whether with hypoxia or hypercapnia (2) Pneumonia Current Visit: Yes Status: Acute Assessment and plan: continue current treatment. Qualifiers: Pneumonia type: due to unspecified organism Laterality: unspecified laterality Lung location: unspecified part of lung Qualified Code(s): J18.9 - Pneumonia, unspecified organism (3) Goals of care, counseling/discussion Current Visit: Yes Status: Acute Assessment and plan: 11:05 - 11:30: Met with pt's daughter, son-in-law and Pat. Family have decided for DNRCCA and extubation. However, given that pt is more awake today, they are worried about the outcome. Eplained that I had a conversation with pt, and although she was still on Fentanyl, she continued to want to be extibubated as soon as possible, and did not want to be re-intubated after extubation. Explained that based on current clinical status, we can be cautiously optimistic that pt will be able to share with us her wishes after extubation. Family decided to proceed with extubation. Family asked treatment team to disclose to pt her diagnosis and prognosis if she was to stabilize. 11:35: Pt extubated to CO. Tolerated the procedure well and was grateful. Plan: Patient can be transitioned to a palliative care bed under hospitalist care Family wants to continue antibiotics and fluids, and full treatment if pt remains stable, with DNRCCA and DNI. Further goals of care to be discussed pending clinical course. (4) Metastatic lung cancer (metastasis from lung to other site) Current Visit: Yes Status: Acute Assessment and plan: Family aware of the extent of disease, not sure pt knows. Family would like treating team to tell pt about diagnosis and prognosis after extubation. Qualifiers: Laterality: right Qualified Code(s): C34.91 - Malignant neoplasm of unspecified part of right bronchus or lung (5) Palliative care encounter Current Visit: Yes Status: Acute - Time Spent With Patient Total time spent is greater than 50% in coordination of care (as documented) at patient's floor/unit and/or counseling patient: 60 minutes Greater than 35 minutes - Subjective Interval history: pt is off sedation, on Fentanyl drip. She is awake, doing well with CPAP since 5am. She is following commands, and asking for ET tube to be removed. - Constitutional Vitals: Abnormal lab results WBC 13.4 K/mcL (4.3-11.1) H D 10/07/18 05:45 RBC 2.89 M/mcL (3.82-4.97) L 10/07/18 05:45 Hgb 8.9 g/dL (11.5-15.4) L 10/07/18 05:45 Hct 27.4 % (35.3-44.9) L 10/07/18 05:45 RDW 15.1 % (11.5-14.5) H 10/07/18 05:45 MPV 9.3 fL (9.4-12.4) L 10/07/18 05:45 Immature Gran % 4.7 % (0-4) H 10/06/18 05:00 11.9 K/mcL (1.6-8.9) H 10/07/18 05:45 0.3 K/mcL (0.6-4.6) L 10/07/18 05:45 1.5 K/mcL (0.0-1.3) H 10/01/18 03:00 ABG pH 7.46 pH Units (7.32-7.45) H 10/02/18 04:47 ABG pCO2 30 mmHg (35-45) L 10/02/18 04:47 ABG pO2 81 mmHg (85-104) L 10/04/18 04:57 ABG HCO3 28 mEq/L (21-27) H 10/01/18 10:32 ABG Total CO2 28 mEq/L (20-26) H 10/07/18 05:14 ABG O2 Saturation 100 % (95-98) H 10/01/18 16:19 ABG Base Excess -3 mEq/L (-2 to 3) L 10/04/18 04:57 Sodium 135 mEq/L (136-145) L 10/05/18 10:31 Potassium 3.3 mEq/L (3.5-5.1) L 10/07/18 05:45 Chloride 97 mEq/L (98-107) L 10/03/18 04:20 Carbon Dioxide 21 mEq/L (23-29) L 10/04/18 05:20 BUN 33 mg/dL (8-23) H 10/07/18 05:45 0.42 mg/dL (0.60-1.20) L 09/30/18 04:07 Est GFR ( Amer) 56 (> 60) L 10/03/18 04:20 Est GFR (Non-Af Amer) 47 (> 60) L 10/03/18 04:20 40 (6-26) H 10/07/18 05:45 Glucose 164 mg/dL (70-105) H 10/07/18 05:45 POC Glucose 149 mg/dL (70-99) H 10/06/18 23:54 259 mOsm/kg (280-300) L 09/30/18 18:02 305 (280-300) H 10/07/18 05:45 Calcium 10.8 mg/dL (8.6-10.3) H 10/06/18 04:00 Venous Ioniz Calcium 1.41 mmol/L (1.15-1.35) H 10/07/18 06:02 Phosphorus 2.3 mg/dL (2.7-4.5) L 10/06/18 10:15 Magnesium 1.5 mg/dL (1.6-2.6) L 10/06/18 05:00 AST 55 Units/L (13-39) H 10/01/18 03:35 258 Units/L (34-104) H 10/01/18 03:35 1368 Units/L (140-271) H 10/03/18 14:00 0.10 ng/mL (< 0.04) H* 10/02/18 03:40 B-Natriuretic Peptide 192 pg/mL (Less than 100) H 09/29/18 13:49 5.7 g/dL (6.4-8.9) L 10/03/18 14:00 3.1 g/dL (3.5-5.7) L 10/01/18 03:35 1.0 (1.1-2.2) L 10/01/18 03:35 30 mg/dL (Neg-Trace) H 09/29/18 11:40 15 mg/dL (Negative) H 09/29/18 11:40 Small (Negative) H 09/29/18 11:40 5-15 per hpf (0-3) H 09/29/18 11:40 Ur Squamous Epith Cells Many per lpf (None-Few) H 09/29/18 11:40 Hyaline Casts Moderate per lpf (None-Few) H 09/29/18 11:40 Fluid Appearance Cloudy (Clear) A 10/02/18 14:38 Fluid Appearance Slightly Hazy (Clear) A 10/02/18 14:38 Vancomycin Trough 33 mcg/mL (5-10) H 10/02/18 23:05 Exam: - Head Head exam: Present: atraumatic, normal inspection - Eye Eye exam: Present: PERRL Pupils: Present: PERRL - ENT ENT exam: Present: mucous membranes moist - Respiratory Respiratory exam: Present: respiratory distress - Expanded Respiratory Exam Location: decreased breath sounds: Left, Right, Lower - Cardiovascular Cardiovascular exam: Present: irregular rhythm, +S1, +S2 - GI/Abdominal GI/Abdominal exam: Present: distended, firm - Extremities Exam Extremities exam: Present: tenderness - Neurological Exam Neurological exam: Present: awake, following commands - Skin Skin exam: Present: pallor, warm Palliative Quality Palliative Quality: Screen for Code Status: Yes, Screen for Goals of Care: Yes, Screen for Pain: Yes, Screen for Nausea/Vomitting: Yes Code Status: 09/29/18 16:07 Resuscitation Status: Active [RES] Routine Comment: Resuscitation Status: Full Code 10/03/18 12:23 DNR [Resuscitation Status: Active] [RES] Routine Comment: Resuscitation Status: DNR-Comfort Care-Arrest - Labs CBC & Chem 7: 10/07/18 05:45 10/07/18 05:45 Labs: Laboratory Results - last 24 hr 10/06/18 10/06/18 10/06/18 04:50 07:46 12:16 WBC RBC Hgb Hct MCV MCH MCHC RDW Plt Count MPV Immature Gran % Seg Neutrophils % Lymphocytes % Monocytes % Eosinophils % Basophils % Neutrophils # Lymphocytes # Monocytes # Eosinophils # Basophils # Sample Site ABG pH ABG pCO2 ABG pO2 ABG HCO3 ABG Total CO2 ABG O2 Saturation ABG Base Excess Manpreet Test Respiration Rate O2 Delivery Device Blood Gas Modality Inspired O2 Tidal Volume PEEP Sodium Potassium Chloride Carbon Dioxide BUN Creatinine Est GFR ( Amer) Est GFR (Non-Af Amer) BUN/Creatinine Ratio Glucose POC Glucose 204 H 187 H 184 H Calculated Osmolality Calcium Venous Ioniz Calcium Phosphorus Magnesium 10/06/18 10/06/18 10/06/18 12:30 18:10 21:45 WBC RBC Hgb Hct MCV MCH MCHC RDW Plt Count MPV Immature Gran % Seg Neutrophils % Lymphocytes % Monocytes % Eosinophils % Basophils % Neutrophils # Lymphocytes # Monocytes # Eosinophils # Basophils # Sample Site ABG pH ABG pCO2 ABG pO2 ABG HCO3 ABG Total CO2 ABG O2 Saturation ABG Base Excess Manpreet Test Respiration Rate O2 Delivery Device Blood Gas Modality Inspired O2 Tidal Volume PEEP Sodium Potassium Chloride Carbon Dioxide BUN Creatinine Est GFR ( Amer) Est GFR (Non-Af Amer) BUN/Creatinine Ratio Glucose POC Glucose 163 H Calculated Osmolality Calcium Venous Ioniz Calcium Phosphorus Magnesium 1.7 1.7 10/06/18 10/07/18 10/07/18 23:54 00:35 05:14 WBC RBC Hgb Hct MCV MCH MCHC RDW Plt Count MPV Immature Gran % Seg Neutrophils % Lymphocytes % Monocytes % Eosinophils % Basophils % Neutrophils # Lymphocytes # Monocytes # Eosinophils # Basophils # Sample Site L Brach ABG pH 7.41 ABG pCO2 42 ABG pO2 86 ABG HCO3 27 ABG Total CO2 28 H ABG O2 Saturation 97 ABG Base Excess 2 Manpreet Test N/A Respiration Rate 18 O2 Delivery Device Adult Vent Blood Gas Modality AF Inspired O2 40.0 Tidal Volume 450 PEEP 5 Sodium Potassium Chloride Carbon Dioxide BUN Creatinine Est GFR ( Amer) Est GFR (Non-Af Amer) BUN/Creatinine Ratio Glucose POC Glucose 149 H Calculated Osmolality Calcium Venous Ioniz Calcium Phosphorus 3.9 Magnesium 10/07/18 10/07/18 10/07/18 05:45 05:45 05:45 WBC 13.4 H D RBC 2.89 L Hgb 8.9 L Hct 27.4 L MCV 94.8 MCH 30.8 MCHC 32.5 RDW 15.1 H Plt Count 221 MPV 9.3 L Immature Gran % 2.4 Seg Neutrophils % 88.8 Lymphocytes % 2.3 Monocytes % 6.4 Eosinophils % 0.0 Basophils % 0.1 Neutrophils # 11.9 H Lymphocytes # 0.3 L Monocytes # 0.9 Eosinophils # 0.0 Basophils # 0.0 Sample Site ABG pH ABG pCO2 ABG pO2 ABG HCO3 ABG Total CO2 ABG O2 Saturation ABG Base Excess Manpreet Test Respiration Rate O2 Delivery Device Blood Gas Modality Inspired O2 Tidal Volume PEEP Sodium 142 Potassium 3.3 L Chloride 106 Carbon Dioxide 27 BUN 33 H Creatinine 0.82 Est GFR ( Amer) > 60 Est GFR (Non-Af Amer) > 60 BUN/Creatinine Ratio 40 H Glucose 164 H POC Glucose Calculated Osmolality 305 H Calcium 10.0 Venous Ioniz Calcium Phosphorus 3.9 Magnesium 2.0 10/07/18 06:02 WBC RBC Hgb Hct MCV MCH MCHC RDW Plt Count MPV Immature Gran % Seg Neutrophils % Lymphocytes % Monocytes % Eosinophils % Basophils % Neutrophils # Lymphocytes # Monocytes # Eosinophils # Basophils # Sample Site ABG pH ABG pCO2 ABG pO2 ABG HCO3 ABG Total CO2 ABG O2 Saturation ABG Base Excess Manpreet Test Respiration Rate O2 Delivery Device Blood Gas Modality Inspired O2 Tidal Volume PEEP Sodium Potassium Chloride Carbon Dioxide BUN Creatinine Est GFR ( Amer) Est GFR (Non-Af Amer) BUN/Creatinine Ratio Glucose POC Glucose Calculated Osmolality Calcium Venous Ioniz Calcium 1.41 H Phosphorus Magnesium - ABG Interpretation ABG results: ABG ABG pH 7.41 pH Units (7.32-7.45) 10/07/18 05:14 ABG pCO2 42 mmHg (35-45) 10/07/18 05:14 ABG pO2 86 mmHg (85-104) 10/07/18 05:14 ABG O2 Saturation 97 % (95-98) 10/07/18 05:14 PT/INR, D-dimer PT 11.4 Seconds (9.4-12.1) 10/01/18 03:35 Consult Discharge Plan - Plan Referrals: Giovani Wills MD [Primary Care Provider] -
[2018-10-07] MEDS: Norepinephrine 4 MG in D5% in Water 250 ML IVC SCH (11:51)
[2018-10-07] MEDS: Acetaminophen 325 MG TABLET PO PRN (12:35)
[2018-10-07] MEDS ORDERED: traMADol 50 MG TABLET PO PRN (16:33)
[2018-10-07] MEDS ORDERED: Dextrose Gel 15 GM/37.5 ML TUBE PO PRN ×2 (16:33)
[2018-10-07] MEDS ORDERED: *HR* Dextrose 50 % in Water (Syg) 50 ML SYRINGE IVP PRN (16:33)
[2018-10-07] MEDS ORDERED: Acetaminophen 325 MG TABLET PO PRN (16:33)
[2018-10-07] MEDS ORDERED: Naloxone 0.4 MG/ML INJ IVP PRN (16:33)
[2018-10-07] MEDS ORDERED: D5% in Water 1,000 ML IVC PRN (16:33)
[2018-10-07] MEDS ORDERED: Thiamine (B-1) 100 MG, Folic Acid 1 MG, MVI, adult with vitamin K 10 ML in 0.9 % Sodi... IVPB SCH (18:00)
[2018-10-08] MEDS: *HR* LORazepam 2 MG/ML VIAL IVP PRN ×2 (00:01→13:09)
[2018-10-08] MEDS: *HR* Metoprolol 5 MG/5 ML VIAL IVP PRN ×2 (02:06→13:09)
[2018-10-08] MEDS: FentaNYL (PF) 1,000 MCG in 0.9 % Sodium Chloride 80 ML IVC SCH ×2 (03:56→20:10)
[2018-10-08] MEDS: Piperacillin/Tazobactam 3.375 GM in 0.9 % Sodium Chloride Mini Bag 100 ML IVPB SCH ×3 (06:09→19:26)
[2018-10-08] MEDS: *HR* Enoxaparin 40 MG/0.4 ML SYRINGE SQ SCH ×2 (06:09→19:27)
--- NOTE | 2018-10-08 08:14 | Internal Med Progress Note ---
<Basilio Clay - Last Filed: 10/08/18 12:55> Hospitalist Progress Note - Encounter Date of Encounter: 10/08/18 - Exam Vitals: Temp Pulse Resp BP Pulse Ox 97.6 F 82 16 112/67 98 10/08/18 10:51 10/08/18 10:51 10/08/18 10:51 10/08/18 10:51 10/08/18 10:51 - Assessment and Plan (1) Acute respiratory failure Current Visit: Yes Status: Acute (2) Acute metabolic encephalopathy Current Visit: Yes Status: Acute (3) Metastatic lung cancer (metastasis from lung to other site) Current Visit: Yes Status: Acute (4) Hyponatremia Current Visit: Yes Status: Resolved (5) ETOH abuse Current Visit: Yes Status: Acute - Time Spent with Patient Total time spent is greater than 50% in coordination of care (as documented) at patient's floor/unit and/or counseling patient: Internal Medicine: Result - Labs CBC & Chem 7: 10/08/18 09:30 10/08/18 09:30 Labs: Short CBC 10/08/18 Range/Units 09:30 WBC 17.2 H (4.3-11.1) K/mcL Hgb 9.4 L (11.5-15.4) g/dL Hct 31.4 L (35.3-44.9) % Plt Count 250 (140-400) K/mcL Neutrophils # 14.6 H (1.6-8.9) K/mcL BMP 10/08/18 09:30 Sodium 142 Potassium 4.5 Chloride 103 Carbon Dioxide 29 BUN 34 H Creatinine 0.88 Glucose 138 H Calcium 9.2 Liver Function 10/08/18 Range/Units 09:30 Total Bilirubin 0.7 (0.3-1.0) mg/dL AST 51 H (13-39) Units/L ALT 52 (7-52) Units/L Alkaline Phosphatase 242 H (34-104) Units/L Albumin 3.5 (3.5-5.7) g/dL - ABG Interpretation ABG results: ABG ABG pH 7.41 pH Units (7.32-7.45) 10/07/18 05:14 ABG pCO2 42 mmHg (35-45) 10/07/18 05:14 ABG pO2 86 mmHg (85-104) 10/07/18 05:14 ABG O2 Saturation 97 % (95-98) 10/07/18 05:14 PT/INR, D-dimer PT 11.4 Seconds (9.4-12.1) 10/01/18 03:35 Consult Discharge Plan - Plan Referrals: Giovani Wills MD [Primary Care Provider] - - Attending Attestation I examined this patient and my medical decision-making was reviewed with the Resident Physician on 10/08/18. I agree with the documented findings, disposition and treatment plan as described except to the extent set forth below. Ms Marcelino is currently admitted for respiratory failure and new diagnosis of metastatic lung cancer. She remains moderate to high risk due to potential for worsening respiratory status. Ms Marcelino is alert but does not respond. She is having a lot of secretions. No fever. Mod respiratory distress on exam. Awaiting further plan per family in regards to further plans. Exam as above. Heart distant. Coarse secretions bilaterally. <Cong Brown - Last Filed: 10/08/18 21:47> Hospitalist Progress Note - Encounter Date of Encounter: 10/08/18 Time of Encounter: 09:00 - Subjective Interval History: Patient not verbal. responded to name with opening eyes. Discussion today with palliative care resulted in patient being placed on comfort care. - Exam Vitals: Temp Pulse Resp BP Pulse Ox 97.5 F L 100 20 131/83 94 10/08/18 07:09 10/08/18 07:09 10/08/18 07:09 10/08/18 07:09 10/08/18 07:09 Exam: PE general: obese female that responds to some commands. nonverbal skin: ecchymosis of R upper extremity. excoriation around site of central venous catheter that was present on arrival. eyes:R pupil dilated with no response to light. L pupil pinpoint but constricts with light. neck: no thyromegaly cardio: irregular rhythm. tachycardic. distant heart sounds. mitral area not heard. respiratory: diffuse rhonchi worse in bases anteriorly GI: exam complicated by obesity. no jaundice. no fluid wave. G/U:feliciano in place MSK: R central venous catheter in place. edema of all extremities worse in the R upper and b/l lower. b/l lower edema pitting to the knee. - Assessment and Plan (1) Septic shock Current Visit: Yes Status: Acute (2) Acute respiratory failure Current Visit: Yes Status: Acute (3) Metastatic lung cancer (metastasis from lung to other site) Current Visit: Yes Status: Suspected (4) Pneumonia Current Visit: Yes Status: Acute DVT Prophylaxis: enoxaparin - Summary of Assessment and Plan Summary of Assessment and Plan: history taken from the EMR HPI: Ms. Marcelino is a 68 Yo F with a history of HTN, obesity, former smoker, EtOH use disorder,who presented to the ED alert and oriented times 3 and complaining of b/l lower ext. weakness, R leg pain in adductor muscle, back pain, shortness of breath. significant initial lab findings included: systolic pressure 188; hyponatremia at 111. Chest CTA showed 3.5 cm mass in R lower lobe surrounded by consolidated lung. diffuse likely metastatic disease was seen. Large R pleural effusion was seen with a trace L pleural effusion. At 13:50 her mental status changed and a central line was placed. NS was started. abd/pelvis CT showed liver lesions likely mets. head CT showed bony lesions likely mets. 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 Acute metabolic encephalopathy was diagnosed likely 2/2 hyponatremia vs. sepsis 10/01: patient was intubated. Pulm consult diagnosed septic shock likely 2/2 pneumonia and treated with vanc/zosin and levophed. Also diagnosed acute respiratory failure. 10/03: thoracentesis performed Acute Hypercapneic Respiratory Failure -likely 2/2 lung mass vs. pneumonia vs. pleural effusions -patient struggling to breath as gurgling sounds present on exam. -patient intubated and palliatively extubated -95% O2 sat on 5L NC -bronchiolar lavage negative for malignant cells -yeast found in R lower lobe -will not pursue more agressive treatment as patient palliative care now. Altered Mental Status -likely 2/2 septic shock -SIRS criteria still met with rr 20 and pulse 100, WBC 17.2 -blood pressure 95/61 -patient still only mildly responsive -patient on palliative care so will not pursue pressor therapy -will d/c antibiotics 2/2 patient on palliative Hyponatremia -resolved Palliative care -discussion with family resulted -fentanyl 1000 mcg 0.9% in 80 ml per palliative -lorazepam 1mg iv q hour prn -treating secretions with glycopyrrolate Constipation -senna, bisacodyl Internal Medicine: Result - Labs CBC & Chem 7: 10/08/18 09:30 10/08/18 09:30 - ABG Interpretation ABG results: ABG ABG pH 7.41 pH Units (7.32-7.45) 10/07/18 05:14 ABG pCO2 42 mmHg (35-45) 10/07/18 05:14 ABG pO2 86 mmHg (85-104) 10/07/18 05:14 ABG O2 Saturation 97 % (95-98) 10/07/18 05:14 PT/INR, D-dimer PT 11.4 Seconds (9.4-12.1) 10/01/18 03:35 <Basilio Clay - Last Filed: 10/08/18 12:55> (1) Acute respiratory failure Qualifiers: Respiratory failure complication: hypoxia Qualified Code(s): J96.01 - Acute respiratory failure with hypoxia (3) Metastatic lung cancer (metastasis from lung to other site) Qualifiers: Laterality: right Qualified Code(s): C34.91 - Malignant neoplasm of unspecified part of right bronchus or lung <Cong Brown - Last Filed: 10/08/18 21:47> (2) Acute respiratory failure Qualifiers: Respiratory failure complication: hypoxia Qualified Code(s): J96.01 - Acute respiratory failure with hypoxia (3) Metastatic lung cancer (metastasis from lung to other site) Qualifiers: Laterality: right Qualified Code(s): C34.91 - Malignant neoplasm of unspecified part of right bronchus or lung (4) Pneumonia Qualifiers: Pneumonia type: due to unspecified organism Laterality: unspecified laterality Lung location: unspecified part of lung Qualified Code(s): J18.9 - Pneumonia, unspecified organism
[2018-10-08] MEDS ORDERED: traMADol 50 MG TABLET PO PRN (08:32)
[2018-10-08] MEDS: MethylPREDNISolone 40 MG/ML VIAL IVP SCH (09:17)
[2018-10-08] MEDS: PrednisoLONE Acetate 1% Opth 5 ML BOTTLE RIGHT EYE SCH ×3 (09:17→20:10)
[2018-10-08 10:19] LABS: Basophils % 0.2 %; Hematocrit 31.4 % (35.3-44.9); Hemoglobin 9.4 g/dL (11.5-15.4); Immature Granulocytes % 4.8 % (0-4); Lymphocytes # 0.4 K/mcL (0.6-4.6); Lymphocytes % 2.6 %; Mean Corpuscular HGB Conc 29.9 g/dL (31.6-35.5); Mean Corpuscular Hemoglobin 30.9 pg (28.0-33.3); Mean Platelet Volume 9.2 fL (9.4-12.4); Monocytes # 1.4 K/mcL (0.0-1.3); Monocytes % 7.9 %; Neutrophils # 14.6 K/mcL (1.6-8.9); Platelet Count 250 K/mcL (140-400); Red Blood Count 3.04 M/mcL (3.82-4.97); Red Cell Distribution Width 15.7 % (11.5-14.5); Segmented Neutrophils % 84.5 %; White Blood Count 17.2 K/mcL (4.3-11.1)
[2018-10-08 10:25] LABS: Mean Corpuscular Volume 103.3 fL (83.0-100.0)
[2018-10-08 10:38] LABS: Alanine Aminotransferase 52 Units/L (7-52); Albumin 3.5 g/dL (3.5-5.7); Albumin/Globulin Ratio 1.4 (1.1-2.2); Alkaline Phosphatase 242 Units/L (34-104); Aspartate Amino Transferase 51 Units/L (13-39); BUN/Creatinine Ratio 39 (6-26); Bilirubin,Total 0.7 mg/dL (0.3-1.0); Blood Urea Nitrogen 34 mg/dL (8-23); Calcium 9.2 mg/dL (8.6-10.3); Carbon Dioxide 29 mEq/L (23-29); Chloride 103 mEq/L (98-107); Globulin 2.5 g/dL (2.4-3.5); Glucose 138 mg/dL (70-105); Magnesium 1.9 mg/dL (1.6-2.6); Osmolality,Calculated 304 (280-300); Phosphorous 5.6 mg/dL (2.7-4.5); Potassium 4.5 mEq/L (3.5-5.1); Sodium 142 mEq/L (136-145); eGFR For African Americans > 60 (> 60); eGFR For Non-African Americans > 60 (> 60)
--- NOTE | 2018-10-08 13:39 | Palliative Progress Note ---
Date of Encounter: 10/08/18 Time of Encounter: 13:00 - Assessment and plan (1) Goals of care, counseling/discussion Current Visit: Yes Status: Acute Assessment and plan: Met with pt's daughter and and discussed goals of care. Explained that pt appears to be actively dying. Family agreed that the main focus is now comfor t care. CODE STATUS changed to DNR CC, will discontinue all medication not related to comfort, including antibiotics and IV fluids. Nurse made aware to titrate medication to keep pt comfortable. DNR state form filled. (2) Acute respiratory failure Current Visit: Yes Status: Acute Assessment and plan: S/p palliative extubation. Patient is tachypneic, appears in moderate distress due to to dyspnea. On fentanyl drip, titrate by 25 mcg until RR<20. Ativan prn for anxiety Glycopyrrolate 0.2 mg q8hrs prn for secretions Qualifiers: Respiratory failure complication: hypoxia Qualified Code(s): J96.01 - Acute respiratory failure with hypoxia (3) Pneumonia Current Visit: Yes Status: Acute Assessment and plan: will discontinue ABX, patient is now DNRCC, focus on comfort care only. Qualifiers: Pneumonia type: due to unspecified organism Laterality: unspecified laterality Lung location: unspecified part of lung Qualified Code(s): J18.9 - Pneumonia, unspecified organism (4) Metastatic lung cancer (metastasis from lung to other site) Current Visit: Yes Status: Acute Assessment and plan: comfort only Qualifiers: Laterality: right Qualified Code(s): C34.91 - Malignant neoplasm of un specified part of right bronchus or lung (5) Palliative care encounter Current Visit: Yes Status: Acute - Time Spent With Patient Total time spent is greater than 50% in coordination of care (as documented) at patient's floor/unit and/or counseling patient: Greater than 35 minutes - Subjective Interval history: Pt lethargic and tachypneic, appears anxious and in moderate distress, appears to be actively dying. Offered her some lorazepam for anxiety, she nodded yes. I explained to pt that at this time our main focus will be her comfort only. She nodded yes. - Constitutional Vitals: Abnormal lab results WBC 17.2 K/mcL (4.3-11.1) H 10/08/18 09:30 RBC 3.04 M/mcL (3.82-4.97) L 10/08/18 09:30 Hgb 9.4 g/dL (11.5-15.4) L 10/08/18 09:30 Hct 31.4 % (35.3-44.9) L 10/08/18 09:30 MCV 103.3 fL (83.0-100.0) H D 10/08/18 09:30 MCHC 29.9 g/dL (31.6-35.5) L 10/08/18 09:30 RDW 15.7 % (11.5-14.5) H 10/08/18 09:30 MPV 9.2 fL (9.4-12.4) L 10/08/18 09:30 Immature Gran % 4.8 % (0-4) H 10/08/18 09:30 14.6 K/mcL (1.6-8.9) H 10/08/18 09:30 0.4 K/mcL (0.6-4.6) L 10/08/18 09:30 1.4 K/mcL (0.0-1.3) H 10/08/18 09:30 ABG pH 7.46 pH Units (7.32-7.45) H 10/02/18 04:47 ABG pCO2 30 mmHg (35-45) L 10/02/18 04:47 ABG pO2 81 mmHg (85-104) L 10/04/18 04:57 ABG HCO3 28 mEq/L (21-27) H 10/01/18 10:32 ABG Total CO2 28 mEq/L (20-26) H 10/07/18 05:14 ABG O2 Saturation 100 % (95-98) H 10/01/18 16:19 ABG Base Excess -3 mEq/L (-2 to 3) L 10/04/18 04:57 Sodium 135 mEq/L (136-145) L 10/05/18 10:31 Potassium 3.3 mEq/L (3.5-5.1) L 10/07/18 05:45 Chloride 97 mEq/L (98-107) L 10/03/18 04:20 Carbon Dioxide 21 mEq/L (23-29) L 10/04/18 05:20 BUN 34 mg/dL (8-23) H 10/08/18 09:30 0.42 mg/dL (0.60-1.20) L 09/30/18 04:07 Est GFR ( Amer) 56 (> 60) L 10/03/18 04:20 Est GFR (Non-Af Amer) 47 (> 60) L 10/03/18 04:20 39 (6-26) H 10/08/18 09:30 Glucose 138 mg/dL (70-105) H 10/08/18 09:30 POC Glucose 137 mg/dL (70-99) H 10/07/18 11:25 259 mOsm/kg (280-300) L 09/30/18 18:02 304 (280-300) H 10/08/18 09:30 Calcium 10.8 mg/dL (8.6-10.3) H 10/06/18 04:00 Venous Ioniz Calcium 1.41 mmol/L (1.15-1.35) H 10/07/18 06:02 Phosphorus 5.6 mg/dL (2.7-4.5) H 10/08/18 09:30 Magnesium 1.5 mg/dL (1.6-2.6) L 10/06/18 05:00 AST 51 Units/L (13-39) H 10/08/18 09:30 242 Units/L (34-104) H 10/08/18 09:30 1368 Units/L (140-271) H 10/03/18 14:00 0.10 ng/mL (< 0.04) H* 10/02/18 03:40 B-Natriuretic Peptide 192 pg/mL (Less than 100) H 09/29/18 13:49 6.0 g/dL (6.4-8.9) L 10/08/18 09:30 3.1 g/dL (3.5-5.7) L 10/01/18 03:35 1.0 (1.1-2.2) L 10/01/18 03:35 30 mg/dL (Neg-Trace) H 09/29/18 11:40 15 mg/dL (Negative) H 09/29/18 11:40 Small (Negative) H 09/29/18 11:40 5-15 per hpf (0-3) H 09/29/18 11:40 Ur Squamous Epith Cells Many per lpf (None-Few) H 09/29/18 11:40 Hyaline Casts Moderate per lpf (None-Few) H 09/29/18 11:40 Fluid Appearance Cloudy (Clear) A 10/02/18 14:38 Fluid Appearance Slightly Hazy (Clear) A 10/02/18 14:38 Vancomycin Trough 33 mcg/mL (5-10) H 10/02/18 23:05 Exam: - Head Head exam: Present: atraumatic, normal inspection - Eye Eye exam: Present: PERRL Pupils: Present: PERRL - ENT ENT exam: Present: mucous membranes moist - Respiratory Respiratory exam: Present: respiratory distress - Expanded Respiratory Exam Location: shallow breathing, Tachypnea, reduced air entry in all lung edwards - Cardiovascular Cardiovascular exam: Present: irregular rhythm, +S1, +S2 - GI/Abdominal GI/Abdominal exam: Present: distended, firm - Extremities Exam Extremities exam: Present: tenderness, edema - Neurological Exam Neurological exam: Present: lethargic, opening eyes, communicating by nodding. - Skin Skin exam: Present: pallor, warm Palliative Quality Palliative Quality: Screen for Code Status: Yes, Screen for Goals of Care: Yes, Screen for Pain: Yes, If Pain Regimen Started, Initiate Bowel Regimen: Yes, Screen for Nausea/Vomitting: Yes Code Status: 09/29/18 16:07 Resuscitation Status: Active [RES] Routine Comment: Resuscitation Status: Full Code 10/03/18 12:23 DNR [Resuscitation Status: Active] [RES] Routine Comment: Resuscitation Status: DNR-Comfort Care-Arrest 10/07/18 13:06 Resuscitation Status: Active [RES] Routine Comment: Resuscitation Status: [id number] 10/07/18 16:10 Resuscitation Status: Active [RES] Routine Comment: Resuscitation Status: DNR-Comfort Care-Arrest - Labs CBC & Chem 7: 10/08/18 09:30 10/08/18 09:30 Labs: Laboratory Results - last 24 hr 10/07/18 10/07/18 10/08/18 06:31 11:25 09:30 WBC RBC Hgb Hct MCV MCH MCHC RDW Plt Count MPV Immature Gran % Seg Neutrophils % Lymphocytes % Monocytes % Eosinophils % Basophils % Neutrophils # Lymphocytes # Monocytes # Eosinophils # Basophils # Sodium 142 Potassium 4.5 Chloride 103 Carbon Dioxide 29 BUN 34 H Creatinine 0.88 Est GFR ( Amer) > 60 Est GFR (Non-Af Amer) > 60 BUN/Creatinine Ratio 39 H Glucose 138 H POC Glucose 149 H 137 H Calculated Osmolality 304 H Calcium 9.2 Phosphorus 5.6 H Magnesium 1.9 Total Bilirubin 0.7 AST 51 H ALT 52 Alkaline Phosphatase 242 H Serum Total Protein 6.0 L Albumin 3.5 Globulin 2.5 Albumin/Globulin Ratio 1.4 10/08/18 09:30 WBC 17.2 H RBC 3.04 L Hgb 9.4 L Hct 31.4 L MCV 103.3 H D MCH 30.9 MCHC 29.9 L RDW 15.7 H Plt Count 250 MPV 9.2 L Immature Gran % 4.8 H Seg Neutrophils % 84.5 Lymphocytes % 2.6 Monocytes % 7.9 Eosinophils % 0.0 Basophils % 0.2 Neutrophils # 14.6 H Lymphocytes # 0.4 L Monocytes # 1.4 H Eosinophils # 0.0 Basophils # 0.0 Sodium Potassium Chloride Carbon Dioxide BUN Creatinine Est GFR ( Amer) Est GFR (Non-Af Amer) BUN/Creatinine Ratio Glucose POC Glucose Calculated Osmolality Calcium Phosphorus Magnesium Total Bilirubin AST ALT Alkaline Phosphatase Serum Total Protein Albumin Globulin Albumin/Globulin Ratio - ABG Interpretation ABG results: ABG ABG pH 7.41 pH Units (7.32-7.45) 10/07/18 05:14 ABG pCO2 42 mmHg (35-45) 10/07/18 05:14 ABG pO2 86 mmHg (85-104) 10/07/18 05:14 ABG O2 Saturation 97 % (95-98) 10/07/18 05:14 PT/INR, D-dimer PT 11.4 Seconds (9.4-12.1) 10/01/18 03:35 Consult Discharge Plan - Plan Referrals: Giovani Wills MD [Primary Care Provider] -
[2018-10-08] MEDS: Glycopyrrolate 0.2 MG/ML VIAL IVP PRN (14:21)
--- NOTE | 2018-10-08 17:39 | Oncology Inp Progress Note ---
Date of Encounter: 10/08/18 Time of Encounter: 12:00 (1) Metastatic lung cancer (metastasis from lung to other site) Current Visit: Yes Status: Acute Assessment and plan: Stage IV disease, status post respiratory failure intubation and extubation, patient currently DNR Comfort Care only. Palliative care following patient. She has received medications and is not oriented to discuss treatment. Oncology reconsultation by ICU team to discuss with patient for the risk benefits of treatment. Family is agreeable to palliative approach. Active Rx may not help her at this time. Palliative input reviewed. On fentanyl for pain control. Qualifiers: Laterality: right Qualified Code(s): C34.91 - Malignant neoplasm of unspecified part of right bronchus or lung Oncology: Subj Interval history: Patient has received pain medications, not communicating much. Family bedside. - Constitutional Exam: Mild to moderate distress, altered mental status. - Head Head exam: Present: atraumatic, normal inspection - Eye Eye exam: Present: sclera anicteric - Respiratory Respiratory exam: Present: CTAB - Cardiovascular Cardiovascular exam: Present: +S1, +S2 - GI/Abdominal GI/Abdominal exam: Present: distended, soft - Extremities Exam Extremities exam: Present: pedal edema - Neurological Exam Neurological exam: Present: altered Additional comments: Generalized weakness, not oriented. - Skin Skin exam: Present: dry Oncology: Obj Data - Labs CBC & Chem 7: 10/08/18 09:30 10/08/18 09:30 Consult Discharge Plan - Plan Referrals: Giovani Wills MD [Primary Care Provider] - Inpatient Charges Provider: Dr. eMlanie Major Follow up - Inpatient: [id number]
[2018-10-09] MEDS: Glycopyrrolate 0.2 MG/ML VIAL IVP PRN (00:29)
[2018-10-09] MEDS: FentaNYL (PF) 1,000 MCG in 0.9 % Sodium Chloride 80 ML IVC SCH ×2 (04:18→18:04)
--- NOTE | 2018-10-09 06:48 | Internal Med Progress Note ---
<Basilio Clay - Last Filed: 10/09/18 18:38> Hospitalist Progress Note - Encounter Date of Encounter: 10/09/18 - Exam Vitals: Temp Pulse Resp BP Pulse Ox 99.0 F 65 20 57/43 90 10/09/18 16:01 10/09/18 16:01 10/09/18 16:01 10/09/18 16:01 10/09/18 16:01 - Assessment and Plan (1) Acute respiratory failure Current Visit: Yes Status: Acute (2) Acute metabolic encephalopathy Current Visit: Yes Status: Acute (3) Metastatic lung cancer (metastasis from lung to other site) Current Visit: Yes Status: Suspected (4) Hyponatremia Current Visit: Yes Status: Resolved (5) ETOH abuse Current Visit: Yes Status: Acute - Time Spent with Patient Total time spent is greater than 50% in coordination of care (as documented) at patient's floor/unit and/or counseling patient: Internal Medicine: Result - Labs CBC & Chem 7: 10/08/18 09:30 10/08/18 09:30 - ABG Interpretation ABG results: ABG ABG pH 7.41 pH Units (7.32-7.45) 10/07/18 05:14 ABG pCO2 42 mmHg (35-45) 10/07/18 05:14 ABG pO2 86 mmHg (85-104) 10/07/18 05:14 ABG O2 Saturation 97 % (95-98) 10/07/18 05:14 PT/INR, D-dimer PT 11.4 Seconds (9.4-12.1) 10/01/18 03:35 Consult Discharge Plan - Plan Referrals: Giovani Wills MD [Primary Care Provider] - - Attending Attestation I examined this patient and my medical decision-making was reviewed with the Resident Physician on 10/09/18. I agree with the documented findings, disposition and treatment plan as described except to the extent set forth below. Ms Marcelino is currently admitted for resp failure. She remains moderate to high risk. Ms Marcelino appears comfortable. No new issues. Exam Arousable. Comfortable Heart not tachy Plan Comfort measures. Appreciate palliative support. <Cong Brown - Last Filed: 10/09/18 19:42> Hospitalist Progress Note - Encounter Date of Encounter: 10/09/18 Time of Encounter: 10:15 - Subjective Interval History: Patient still non-verbal. daughter states she is less responsive than yesterday. seems to be resting more comfortably with less labored breathing. - Exam Vitals: Temp Pulse Resp BP Pulse Ox 97.8 F 90 16 93/55 95 10/09/18 03:50 10/09/18 03:50 10/09/18 03:50 10/09/18 03:50 10/09/18 03:50 Exam: PE General well-nourished female minimally responsive. Opens eyes to command. Skin thickening of skin in pannis Eyes: Only left pupil fully visualized pinpoint. ENT: Oropharynx dry Neck: central line in place Cardio: tachycardic. irregular. distant. mitral post not heard. cap refill <2 seconds upper and lower ext. b/l Pulm: diffuse rhonchi anteriorly with scattered expiratory wheezes GI: bowel sounds present. obese. Genitourinary: feliciano in place MSK: pitting edema b/l lower ext to knee - Assessment and Plan (1) Septic shock Current Visit: Yes Status: Acute Assessment and Plan: SIRS criteria met with rr 20 and pulse 100, WBC 17.2 -blood pressure remains low -patient still only mildly responsive -patient on palliative care so will not pursue pressor therapy -will d/c antibiotics 2/2 patient on palliative (2) Acute respiratory failure Current Visit: Yes Status: Acute Assessment and Plan: likely 2/2 lung mass vs. pneumonia vs. pleural effusions -patient breathing less labored today. -patient intubated and palliatively extubated -95% O2 sat on 5L NC -bronchiolar lavage negative for malignant cells -yeast found in R lower lobe -will not pursue more agressive treatment as patient palliative care now. *continue meds per palliative: glycopyrrolate, lorazepam, fentanyl (3) Metastatic lung cancer (metastasis from lung to other site) Current Visit: Yes Status: Suspected Assessment and Plan: -suspected. -chest CTA findings 09/29/18 -oncology stages it at IV and signed off (4) Pneumonia Current Visit: Yes Status: Acute Assessment and Plan: -suspected. care as above 2/2 palliative only. - Time Spent with Patient Total time spent is greater than 50% in coordination of care (as documented) at patient's floor/unit and/or counseling patient: Internal Medicine: Result - Labs CBC & Chem 7: 10/08/18 09:30 10/08/18 09:30 Labs: Short CBC 10/08/18 Range/Units 09:30 WBC 17.2 H (4.3-11.1) K/mcL Hgb 9.4 L (11.5-15.4) g/dL Hct 31.4 L (35.3-44.9) % Plt Count 250 (140-400) K/mcL Neutrophils # 14.6 H (1.6-8.9) K/mcL BMP 10/08/18 09:30 Sodium 142 Potassium 4.5 Chloride 103 Carbon Dioxide 29 BUN 34 H Creatinine 0.88 Glucose 138 H Calcium 9.2 Liver Function 10/08/18 Range/Units 09:30 Total Bilirubin 0.7 (0.3-1.0) mg/dL AST 51 H (13-39) Units/L ALT 52 (7-52) Units/L Alkaline Phosphatase 242 H (34-104) Units/L Albumin 3.5 (3.5-5.7) g/dL - ABG Interpretation ABG results: ABG ABG pH 7.41 pH Units (7.32-7.45) 10/07/18 05:14 ABG pCO2 42 mmHg (35-45) 10/07/18 05:14 ABG pO2 86 mmHg (85-104) 10/07/18 05:14 ABG O2 Saturation 97 % (95-98) 10/07/18 05:14 PT/INR, D-dimer PT 11.4 Seconds (9.4-12.1) 10/01/18 03:35 <Basilio Clay - Last Filed: 10/09/18 18:38> (1) Acute respiratory failure Qualifiers: Respiratory failure complication: hypoxia Qualified Code(s): J96.01 - Acute respiratory failure with hypoxia (3) Metastatic lung cancer (metastasis from lung to other site) Qualifiers: Laterality: right Qualified Code(s): C34.91 - Malignant neoplasm of unspecified part of right bronchus or lung <Cong Brown - Last Filed: 10/09/18 19:42> (2) Acute respiratory failure Qualifiers: Respiratory failure complication: hypoxia Qualified Code(s): J96.01 - Acute respiratory failure with hypoxia (3) Metastatic lung cancer (metastasis from lung to other site) Qualifiers: Laterality: right Qualified Code(s): C34.91 - Malignant neoplasm of unspecified part of right bronchus or lung (4) Pneumonia Qualifiers: Pneumonia type: due to unspecified organism Laterality: unspecified laterality Lung location: unspecified part of lung Qualified Code(s): J18.9 - Pneumonia, unspecified organism
[2018-10-09] MEDS: Piperacillin/Tazobactam 3.375 GM in 0.9 % Sodium Chloride Mini Bag 100 ML IVPB SCH (08:26)
[2018-10-09] MEDS: PrednisoLONE Acetate 1% Opth 5 ML BOTTLE RIGHT EYE SCH ×3 (08:45→20:18)
[2018-10-09] MEDS: *HR* LORazepam 2 MG/ML VIAL IVP PRN ×2 (08:45→20:38)
--- NOTE | 2018-10-09 13:35 | Palliative Progress Note ---
Date of Encounter: 10/09/18 Time of Encounter: 09:30 - Assessment and plan (1) Goals of care, counseling/discussion Current Visit: Yes Status: Acute Assessment and plan: Family updated on findings. Prognosis hours to days, appear closer to hours. Nurse to wean down oxygen and titrate fentanyl to treat dyspnea. Family agreeable with he plan. Because pt is imminent, will remain under hospitalist care, to avoid the burden of all hospice admission paperwork for just a few hours. Palliative care team will continue to follow and manage pt actively. (2) Acute respiratory failure Current Visit: Yes Status: Acute Assessment and plan: S/p palliative extubation. Patient is tachypneic, appears in moderate distress due to to dyspnea. On fentanyl drip, titrate by 25 mcg until RR<20. Ativan prn for anxiety Glycopyrrolate 0.2 mg q8hrs prn for secretions Qualifiers: Respiratory failure complication: hypoxia Qualified Code(s): J96.01 - Acute respiratory failure with hypoxia (3) Pneumonia Current Visit: Yes Status: Acute Assessment and plan: will discontinue ABX, patient is now DNRCC, focus on comfort care only. Qualifiers: Pneumonia type: due to unspecified organism Laterality: unspecified laterality Lung location: unspecified part of lung Qualified Code(s): J18.9 - Pneumonia, unspecified organism (4) Metastatic lung cancer (metastasis from lung to other site) Current Visit: Yes Status: Suspected Assessment and plan: comfort only Qualifiers: Laterality: right Qualified Code(s): C34.91 - Malignant neoplasm of unspecified part of right bronchus or lung (5) Palliative care encounter Current Visit: Yes Status: Acute - Time Spent With Patient Total time spent is greater than 50% in coordination of care (as documented) at patient's floor/unit and/or counseling patient: 25 - 35 minutes - Subjective Interval history: Pt appears to be actively dying, not responsive, remains tachypneic. Exam shows mottling of legs up to the knees. Family at the bedside updated on findings. - Constitutional Vitals: Abnormal lab results WBC 17.2 K/mcL (4.3-11.1) H 10/08/18 09:30 RBC 3.04 M/mcL (3.82-4.97) L 10/08/18 09:30 Hgb 9.4 g/dL (11.5-15.4) L 10/08/18 09:30 Hct 31.4 % (35.3-44.9) L 10/08/18 09:30 MCV 103.3 fL (83.0-100.0) H D 10/08/18 09:30 MCHC 29.9 g/dL (31.6-35.5) L 10/08/18 09:30 RDW 15.7 % (11.5-14.5) H 10/08/18 09:30 MPV 9.2 fL (9.4-12.4) L 10/08/18 09:30 Immature Gran % 4.8 % (0-4) H 10/08/18 09:30 14.6 K/mcL (1.6-8.9) H 10/08/18 09:30 0.4 K/mcL (0.6-4.6) L 10/08/18 09:30 1.4 K/mcL (0.0-1.3) H 10/08/18 09:30 ABG pH 7.46 pH Units (7.32-7.45) H 10/02/18 04:47 ABG pCO2 30 mmHg (35-45) L 10/02/18 04:47 ABG pO2 81 mmHg (85-104) L 10/04/18 04:57 ABG HCO3 28 mEq/L (21-27) H 10/01/18 10:32 ABG Total CO2 28 mEq/L (20-26) H 10/07/18 05:14 ABG O2 Saturation 100 % (95-98) H 10/01/18 16:19 ABG Base Excess -3 mEq/L (-2 to 3) L 10/04/18 04:57 Sodium 135 mEq/L (136-145) L 10/05/18 10:31 Potassium 3.3 mEq/L (3.5-5.1) L 10/07/18 05:45 Chloride 97 mEq/L (98-107) L 10/03/18 04:20 Carbon Dioxide 21 mEq/L (23-29) L 10/04/18 05:20 BUN 34 mg/dL (8-23) H 10/08/18 09:30 0.42 mg/dL (0.60-1.20) L 09/30/18 04:07 Est GFR ( Amer) 56 (> 60) L 10/03/18 04:20 Est GFR (Non-Af Amer) 47 (> 60) L 10/03/18 04:20 39 (6-26) H 10/08/18 09:30 Glucose 138 mg/dL (70-105) H 10/08/18 09:30 POC Glucose 137 mg/dL (70-99) H 10/07/18 11:25 259 mOsm/kg (280-300) L 09/30/18 18:02 304 (280-300) H 10/08/18 09:30 Calcium 10.8 mg/dL (8.6-10.3) H 10/06/18 04:00 Venous Ioniz Calcium 1.41 mmol/L (1.15-1.35) H 10/07/18 06:02 Phosphorus 5.6 mg/dL (2.7-4.5) H 10/08/18 09:30 Magnesium 1.5 mg/dL (1.6-2.6) L 10/06/18 05:00 AST 51 Units/L (13-39) H 10/08/18 09:30 242 Units/L (34-104) H 10/08/18 09:30 1368 Units/L (140-271) H 10/03/18 14:00 0.10 ng/mL (< 0.04) H* 10/02/18 03:40 B-Natriuretic Peptide 192 pg/mL (Less than 100) H 09/29/18 13:49 6.0 g/dL (6.4-8.9) L 10/08/18 09:30 3.1 g/dL (3.5-5.7) L 10/01/18 03:35 1.0 (1.1-2.2) L 10/01/18 03:35 30 mg/dL (Neg-Trace) H 09/29/18 11:40 15 mg/dL (Negative) H 09/29/18 11:40 Small (Negative) H 09/29/18 11:40 5-15 per hpf (0-3) H 09/29/18 11:40 Ur Squamous Epith Cells Many per lpf (None-Few) H 09/29/18 11:40 Hyaline Casts Moderate per lpf (None-Few) H 09/29/18 11:40 Fluid Appearance Cloudy (Clear) A 10/02/18 14:38 Fluid Appearance Slightly Hazy (Clear) A 10/02/18 14:38 Vancomycin Trough 33 mcg/mL (5-10) H 10/02/18 23:05 Exam: - Head Head exam: Present: atraumatic, normal inspection - Eye Eye exam: Present: PERRL Pupils: Present: PERRL - ENT ENT exam: Present: mucous membranes moist - Respiratory Respiratory exam: Present: respiratory distress - Expanded Respiratory Exam Location: shallow breathing, Tachypnea, reduced air entry in all lung edwards - Cardiovascular Cardiovascular exam: Present: irregular rhythm, +S1, +S2 - GI/Abdominal GI/Abdominal exam: Present: distended, firm - Extremities Exam Extremities exam: Present: tenderness, edema - Neurological Exam Neurological exam: Present: lethargic, opening eyes, communicating by nodding. - Skin Skin exam: Present: Mottling of legs up to knees Palliative Quality Palliative Quality: Screen for Code Status: Yes, Screen for Goals of Care: Yes, Screen for Pain: Yes, If Pain Regimen Started, Initiate Bowel Regimen: Yes, Screen for Nausea/Vomitting: Yes Code Status: 09/29/18 16:07 Resuscitation Status: Active [RES] Routine Comment: Resuscitation Status: Full Code 10/03/18 12:23 DNR [Resuscitation Status: Active] [RES] Routine Comment: Resuscitation Status: DNR-Comfort Care-Arrest 10/07/18 13:06 Resuscitation Status: Active [RES] Routine Comment: Resuscitation Status: [id number] 10/07/18 16:10 Resuscitation Status: Active [RES] Routine Comment: Resuscitation Status: DNR-Comfort Care-Arrest 10/08/18 13:39 Resuscitation Status: Active [RES] Routine Comment: Resuscitation Status: DNR-Comfort Care - Labs CBC & Chem 7: 10/08/18 09:30 10/08/18 09:30 - ABG Interpretation ABG results: ABG ABG pH 7.41 pH Units (7.32-7.45) 10/07/18 05:14 ABG pCO2 42 mmHg (35-45) 10/07/18 05:14 ABG pO2 86 mmHg (85-104) 10/07/18 05:14 ABG O2 Saturation 97 % (95-98) 10/07/18 05:14 PT/INR, D-dimer PT 11.4 Seconds (9.4-12.1) 10/01/18 03:35 Consult Discharge Plan - Plan Referrals: Giovani Wills MD [Primary Care Provider] -
[2018-10-09 16:02] VITALS: BP 57/43
--- NOTE | 2018-10-09 17:57 | Oncology Inp Progress Note ---
Date of Encounter: 10/09/18 Time of Encounter: 12:00 (1) Metastatic lung cancer (metastasis from lung to other site) Current Visit: Yes Status: Suspected Assessment and plan: Stage IV disease, status post respiratory failure intubation and extubation, patient currently DNR Comfort Care only. Palliative care following patient. She is comfortable on pain management, near to end of life. Oncology will sign off. FAmily has no further concerns Qualifiers: Laterality: right Qualified Code(s): C34.91 - Malignant neoplasm of unspecified part of right bronchus or lung Oncology: Subj Interval history: Patient seen bedside, son in law, friend. Pt not communicating, comfortable - Constitutional General appearance: mild distress - Head Head exam: Present: atraumatic, normal inspection - Respiratory Additional comments: tachypnea, min distress - Neurological Exam Additional comments: altered mental status, not oriented/communicative Oncology: Obj Data - Labs CBC & Chem 7: 10/08/18 09:30 10/08/18 09:30 Consult Discharge Plan - Plan Referrals: Giovani Wills MD [Primary Care Provider] - Inpatient Charges Provider: Dr. Melanie Major Follow up - Inpatient: [id number]
--- NOTE | 2018-10-09 22:05 | Death Note ---
Pronouncement Note - Date and Time of Date of : 10/09/18 Time of : 21:39 - PCOD Preliminary cause of : Respiratory arrest - Summary Additional details: Ms. Marcelino was a 68 year old female with a medical history of HTN, alcohol use, HTN who presented to the hospital with a complaint of difficulty breathing, back pain, and leg pain. Initial evaluation on presentation showed that she had severe hyponatremia and imaging in the emergency room showed a lung mass with extensive likely metastatic lesions. She was also altered in her mental status on presentation. She was started on antibiotics and admitted to the ICU. She did develop septic shock secondary to suspected pneumonia and did require vasopressor support as well as endotracheal intubation. During course of hospit alization, patient did unfortunately deteriorate and was unable to be weaned off mechanical ventilation.Palliative care and oncology did meet with the patient's family and the decision to pursue a palliative care route was determined. She was palliatively extubated and she was transitioned out of the intensive care unit. Antibiotics were discontinued and comfort measures were set in place by our palliative care team. This physician was called to bedside this evening after suspicion of . At 2139, patient was Demonstrating no breath sounds on auscultation, no cardiac sounds, there is no pulse and pupils were fixed and dilated. Patient's family was at bedside when she passed and states she went peacefully. All questions were answered - Additional Data Confirmation of : no pulse, no respirations, no heart sounds, pupils fixed and dilated Family: at bedside Attending/PCP notified?: Yes Attending physician: Basilio Clay, DO Was code activated?: No Autopsy requested?: No yarn skeins examiner notified?: No Organ bank notified?: Yes
--- NOTE | 2018-10-09 22:13 | Death Note ---
Discharge Sum: Summary - Date and Time Date of admission: 09/29/18 16:14 Date of : 10/09/18 Time of : 21:39 - Summary Details: Ms. Marcelino was a 68 year old female with a medical history of HTN, alcohol use, HTN who presented to the hospital with a complaint of difficulty breathing, back pain, and leg pain. Initial evaluation on presentation showed that she had severe hyponatremia and imaging in the emergency room showed a lung mass with extensive likely metastatic lesions. She was also altered in her mental status on presentation. She was started on antibiotics and admitted to the ICU. She did develop septic shock secondary to suspected pneumonia and did require vasopressor support as well as endotracheal intubation. During course of hospitalization, patient did unfortunately deteriorate and was unable to be weaned off mechanical ventilation.Palliative care and oncology did meet with the patient's family and the decision to pursue a palliative care route was determined. She was palliatively extubated and she was transitioned out of the intensive care unit. Antibiotics were discontinued and comfort measures were set in place by our palliative care team. This physician was called to bedside this evening after suspicion of . At 2139, patient was Demonstrating no breath sounds on auscultation, no cardiac sounds, there is no pulse and pupils were fixed and dilated. Patient's family was at bedside when she passed and states she went peacefully. All questions were answered - Additional Data Confirmation of as documented by pronouncing clinician: no pulse, no respirations, no heart sounds, pupils fixed and dilated Family: at bedside Attending/PCP notified?: Yes Attending physician: Basilio Clay, DO Was code activated?: No Autopsy requested?: No supervisory examiner notified?: No Discharge Sum: Diag - PCOD Probable Cause of : Respiratory arrest Discharge Sum: Prov - Provider Primary care physician: Giovani Wills MD Attending physician on admission: Von Chavarria Consults: 09/30/18 12:28 Consult to Nephrology [CONS] Routine Consulting Provider: [facility] Paz/SELENA/MATI/HEBERT Reason for Consult: hyponatremia Call Completed: Yes 10/01/18 09:00 Consult to Pulmonology [CONS] Stat Consulting Provider: Pulm [facility] Reason for Consult: critical care management Call Completed: Yes 10/02/18 10:37 Consult to Oncology [CONS] Routine Consulting Provider: On[facility] [place] Reason for Consult: new lung mass, bony mets, adrenal masses Call Completed: Yes 10/02/18 22:56 Consult to Palliative Care [CONS] Routine Comment: Consulting Provider: Palliative Care [facility] Reason for Consult: Patient has advanced lung cancer oncology recommended no further treatment Time Notified: 10:40 Call Completed: No 10/03/18 08:58 Consult to Interventional Radiology [CONS] Routine Consulting Provider: Radiology Interventional Cols Reason for Consult: right sided pleural effusion Call Completed: Yes 10/04/18 10:31 Consult to Nutrition [CONS] Routine Comment: Consulting Provider: NUTRITION Reason for Dietary Consult: TPN Start and Manage 10/04/18 10:43 Consult to Nutrition [CONS] Routine Comment: Consulting Provider: NUTRITION Reason for Dietary Consult: Tube Feed Start & Manage 10/08/18 09:21 Consult to Nurse Navigator [CONS] Routine Comment: pn Pronouncing clinician: Gui Meek
== END 2018-10-09 21:39 | disposition expired | DRG 207 ==
LOC: EMEROOARM 10:52 → ICNU 16:14 → SUATTDRO 16:14 → ICNU 17:40 → 2ANU 10-07 16:39
PROVIDERS: ADMIT Internal Medicine; ATTEND Internal Medicine